=== PATIENT | male | born 1940 | race Caucasian/White ===

== ENCOUNTER 2018-03-14 15:51 | Emergency (ER) | payer MEDICARE, OTHER ==
--- NOTE | 2018-03-14 16:25 | ER Document Report ---
ED Medical Screen (RME) - General Chief Complaint: Breathing Difficulty Stated Complaint: SHORTNESS OF BREATH Time Seen by Provider: 03/14/18 16:18 Notes: 77-year-old male presents emergency department stating that he is feeling more short of breath than usual since last night. No change in his cough, no chest pain, no fevers. Patient also states he was concerned because he was starting to run out of oxygen. Patient does have a history of COPD. TRAVEL OUTSIDE OF THE [place] IN LAST 30 DAYS: No - Related Data Allergies/Adverse Reactions: No Known Allergies Allergy (Unverified 03/14/18 16:01) Past Medical History - General Information source: Patient - Social History Cigarette use (# per day): No Chew tobacco use (# tins/day): No Frequency of alcohol use: Rare Drug Abuse: None - Past Medical History Cardiac Medical History: Reports: Hx Hypertension Pulmonary Medical History: Reports: Hx COPD Renal/ Medical History: Denies: Hx Peritoneal Dialysis Past Surgical History: Reports: Hx Cardiac Catheterization - 4 stents, Hx Tonsillectomy Review of Systems - Review of Systems Cardiovascular: No symptoms reported Respiratory: See HPI Physical Exam - Vital signs Vitals: Temp Pulse Resp BP Pulse Ox 97.7 F 85 16 168/78 H 96 03/14/18 16:03 03/14/18 16:03 03/14/18 16:03 03/14/18 16:03 03/14/18 16:03 Interpretation: Hypertensive - Notes Notes: Lungs-clear to auscultation bilaterally, occasional dry cough, no wheezing, no respiratory distress, stable on 2 L of nasal cannula oxygen. Heart-regular rate and rhythm no murmurs gallops or rubs. Course - Vital Signs Vital signs: Temp Pulse Resp BP Pulse Ox 97.7 F 85 16 168/78 H 96 03/14/18 16:03 03/14/18 16:03 03/14/18 16:03 03/14/18 16:03 03/14/18 16:03
[2018-03-14 17:13] LABS: ABSOLUTE EOSINOPHILS # (AUTO) 0.3 10^3/uL (0.0-0.6); ABSOLUTE LYMPHOCYTES (AUTO) 1.2 10^3/uL (0.5-4.7); ABSOLUTE NEUT (AUTO) 5.2 10^3/uL (1.7-8.2); BASOPHILS % (AUTO) 0.5 % (0-2); HEMATOCRIT 39.1 % (37.9-51.0); HEMOGLOBIN 12.9 g/dL (13.5-17.0); LYMPHOCYTES % (AUTO) 15.3 % (13-45); MEAN CORPUSCULAR VOLUME 91 fl (80-97); MONOCYTES % (AUTO) 12.7 % (3-13); PLATELET COUNT 227 10^3/uL (150-450); RED BLOOD COUNT 4.31 10^6/uL (4.35-5.55); RED CELL DISTRIBUTION WIDTH 15.3 % (11.5-14.0); SEGMENTED NEUTROPHILS % (AUTO) 67.5 % (42-78); TOTAL CELLS COUNTED % (AUTO) 100 %; WHITE BLOOD COUNT 7.7 10^3/uL (4.0-10.5)
[2018-03-14 17:15] LABS: VENOUS BLOOD BASE EXCESS 2.2 mmol/L; VENOUS BLOOD HCO3 24.6 mmol/L (20-32); VENOUS BLOOD PCO2 31.4 mmHg (35-63); VENOUS BLOOD PH 7.51 (7.30-7.42)
[2018-03-14 17:31] LABS: ALANINE AMINOTRANSFERASE 17 U/L (21-72); ALBUMIN 3.7 g/dL (3.5-5.0); ALKALINE PHOSPHATASE 96 U/L (38-126); ANION GAP 8 (5-19); ASPARTATE AMINO TRANSFERASE 19 U/L (17-59); BILIRUBIN,DIRECT 0.4 mg/dL (0.0-0.4); BILIRUBIN,TOTAL 0.6 mg/dL (0.2-1.3); BLOOD UREA NITROGEN 14 mg/dL (7-20); CALCIUM 9.3 mg/dL (8.4-10.2); CARBON DIOXIDE 25 mmol/L (22-30); CHLORIDE 107 mmol/L (98-107); CREATINE KINASE 56 U/L (55-170); GLUCOSE 100 mg/dL (75-110); POTASSIUM 4.1 mmol/L (3.6-5.0); SODIUM 139.5 mmol/L (137-145); TOTAL PROTEIN 7.4 g/dL (6.3-8.2)
[2018-03-14 17:40] LABS: CREATINE KINASE MB 1.17 ng/mL (<4.55)
[2018-03-14 17:41] LABS: TROPONIN I < 0.012 ng/mL
[2018-03-14] MEDS ORDERED: IPRATROPIUM/ALBUTEROL 0.5-2.5 MG/3 ML AMPUL NEB ONE (17:41)
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
[2018-03-14 18:08] VITALS: BP 165/70
--- NOTE | 2018-03-14 18:48 | RADIOLOGY REPORT (SQ) ---
EXAM DESCRIPTION: CHEST 2 VIEWS COMPLETED DATE/TIME: 03/14/2018 5:51 pm REASON FOR STUDY: SOB COMPARISON: None. TECHNIQUE: Frontal and lateral radiographic views of the chest acquired. NUMBER OF VIEWS: Two view. LIMITATIONS: None. FINDINGS: LUNGS AND PLEURA: No pneumothorax. No consolidation or pleural effusion. Emphysema and ch ronic interstitial changes -basilar scarring. MEDIASTINUM AND HILAR STRUCTURES: Age-appropriate contour. HEART AND VASCULAR STRUCTURES: Mild cardiac enlargement. BONES: No acute findings. HARDWARE: None in the chest. OTHER: No other significant finding. IMPRESSION: No consolidation or pleural effusion. Emphysema and chronic interstitial changes -basil ar scarring. TECHNICAL DOCUMENTATION: JOB ID: [id number] [id number] [employer]- All Rights Reserved Reading location - IP/workstation name: [email or web address]
--- NOTE | 2018-03-14 23:57 | EKG REPORT ---
SEVERITY:- ABNORMAL ECG - SINUS RHYTHM LEFT VENTRICULAR HYPERTROPHY : Confirmed by: Carol Ann Elizondo 14-Mar-2018 23:56:22
== END 2018-03-14 18:29 | disposition home or self-care (01) ==
LOC: ER 15:51
DX: J43.9 Emphysema, unspecified (principal); R06.02 Shortness of breath; Z65.5 Exposure to disaster, war and other hostilities; Z99.81 Dependence on supplemental oxygen; I10 Essential (primary) hypertension; Z95.5 Presence of coronary angioplasty implant and graft
CPT/HCPCS: 36415; 71046; 80053; 82550; 82553; 82803; 84484; 85025; 93005; 93010; 94640; 99285

== ENCOUNTER 2018-03-16 10:50 | Emergency (ER) | payer MEDICARE, OTHER ==
[2018-03-16 11:02] VITALS: BP 162/62
[2018-03-16] MEDS ORDERED: ASPIRIN 81 MG TABLET, CHEWABLE PO ONE (11:20)
--- NOTE | 2018-03-16 11:24 | ER Document Report ---
ED Medical Screen (RME) - General Chief Complaint: Shortness Of Breath Stated Complaint: DIFFICULTY BREATHING Time Seen by Provider: 03/16/18 11:18 Mode of Arrival: Wheelchair Information source: Patient Notes: Patient woke up this morning with sudden onset of shortness of breath. He said his oxygen saturation saturation was in the 80's. Patient also has a nonproductive wet cough. He is a former smoker. Denies chest pain, abdominal pain, nausea, vomiting, diarrhea, fever or chills. Patient normally use home oxygen about 4 L continuously. On exam he has diffuse wheezes bilaterally. I have greeted and performed a rapid initial assessment of this patient. A comprehensive ED assessment and evaluation of the patient, analysis of test results and completion of the medical decision making process will be conducted by additional ED providers. TRAVEL OUTSIDE OF THE [place] IN LAST 30 DAYS: No - Related Data Allergies/Adverse Reactions: No Known Allergies Allergy (Unverified 03/14/18 16:01) Past Medical History - Social History Chew tobacco use (# tins/day): No Frequency of alcohol use: None Drug Abuse: None - Past Medical History Cardiac Medical History: Reports: Hx Hypertension Pulmonary Medical History: Reports: Hx COPD Renal/ Medical History: Denies: Hx Peritoneal Dialysis Past Surgical History: Reports: Hx Cardiac Catheterization - 4 stents, Hx Tonsillectomy Physical Exam - Vital signs Vitals: Temp Pulse Resp BP Pulse Ox 98.0 F 74 22 H 162/62 H 94 03/16/18 10:56 03/16/18 10:56 03/16/18 10:56 03/16/18 10:56 03/16/18 10:56 Course - Vital Signs Vital signs: Temp Pulse Resp BP Pulse Ox 98.0 F 74 22 H 162/62 H 94 03/16/18 10:56 03/16/18 10:56 03/16/18 10:56 03/16/18 10:56 03/16/18 10:56
[2018-03-16] MEDS ORDERED: METHYLPREDNISOLONE INJ 125 MG/2 ML SDV IV ONE (11:25)
[2018-03-16] MEDS ORDERED: IPRATROPIUM/ALBUTEROL 0.5-2.5 MG/3 ML AMPUL NEB ONE (11:25)
--- NOTE | 2018-03-16 12:34 | RADIOLOGY REPORT (SQ) ---
EXAM DESCRIPTION: CHEST SINGLE VIEW COMPLETED DATE/TIME: 03/16/2018 12:15 pm REASON FOR STUDY: shortness of breath COMPARISON: 03/14/2018 EXAM PARAMETERS: NUMBER OF VIEWS: One view. TECHNIQUE: Single frontal radiographic view of the chest acquired. RADIATION DOSE: NA LIMITATIONS: None. FINDINGS: LUNGS AND PLEURA: Upper lobes are hyperinflated and hyperlucent from obstructive disease i n her mild pulmonary interstitial edema in the lower lobes Jayla lines present. No pneumothorax. No pleural effusions. MEDIASTINUM AND HILAR STRUCTURES: No masses. Contour normal. HEART AND VASCULAR STRUCTURES: Stable cardiomegaly BONES: No acute findings. HARDWARE: None in the chest. OTHER: No other significant finding. IMPRESSION: Mild fluid overload or congestive failure superimposed on obstructive disease TECHNICAL DOCUMENTATION: JOB ID: [id number] [employer]- All Rights Reserved Reading location - IP/workstation name: [email or web address]
[2018-03-16] MEDS ORDERED: GUAIFENESIN 600 MG TABLET.SA PO ONE (13:11)
[2018-03-16 13:30] LABS: APPEARANCE,URINE CLEAR; BILIRUBIN,URINE NEGATIVE (NEGATIVE); COLOR,URINE STRAW; GLUCOSE, URINE NEGATIVE (NEGATIVE); KETONES,URINE NEGATIVE (NEGATIVE); PROTEIN,URINE NEGATIVE (NEGATIVE)
[2018-03-16 13:31] LABS: LEUKOCYTE ESTERASE,URINE TRACE (NEGATIVE); NITRITE,URINE NEGATIVE (NEGATIVE); URINE SPECIFIC GRAVITY 1.013
[2018-03-16 13:54] LABS: ALANINE AMINOTRANSFERASE 14 U/L (21-72); ALKALINE PHOSPHATASE 106 U/L (38-126); ANION GAP 8 (5-19); ASPARTATE AMINO TRANSFERASE 19 U/L (17-59); BILIRUBIN,DIRECT 0.5 mg/dL (0.0-0.4); BILIRUBIN,TOTAL 0.9 mg/dL (0.2-1.3); BLOOD UREA NITROGEN 12 mg/dL (7-20); CALCIUM 9.4 mg/dL (8.4-10.2); CARBON DIOXIDE 28 mmol/L (22-30); CHLORIDE 100 mmol/L (98-107); CREATINE KINASE 56 U/L (55-170); GLUCOSE 92 mg/dL (75-110); POTASSIUM 4.9 mmol/L (3.6-5.0); SODIUM 136.3 mmol/L (137-145); TOTAL PROTEIN 7.7 g/dL (6.3-8.2)
[2018-03-16 13:58] LABS: ABSOLUTE BASOPHILS # (AUTO) 0.1 10^3/uL (0.0-0.2); ABSOLUTE EOSINOPHILS # (AUTO) 0.6 10^3/uL (0.0-0.6); ABSOLUTE LYMPHOCYTES (AUTO) 1.3 10^3/uL (0.5-4.7); ABSOLUTE MONOCYTES (AUTO) 1.3 10^3/uL (0.1-1.4); EOSINOPHILS % (AUTO) 4.8 % (0-6); HEMATOCRIT 41.2 % (37.9-51.0); HEMOGLOBIN 13.6 g/dL (13.5-17.0); LYMPHOCYTES % (AUTO) 10.8 % (13-45); MEAN CORPUSCULAR HEMOGLOBIN 29.7 pg (27.0-33.4); MEAN CORPUSCULAR HGB CONC 33.1 g/dL (32.0-36.0); MEAN CORPUSCULAR VOLUME 90 fl (80-97); MONOCYTES % (AUTO) 10.3 % (3-13); PLATELET COUNT 230 10^3/uL (150-450); RED BLOOD COUNT 4.58 10^6/uL (4.35-5.55); RED CELL DISTRIBUTION WIDTH 15.5 % (11.5-14.0); SEGMENTED NEUTROPHILS % (AUTO) 73.1 % (42-78); TOTAL CELLS COUNTED % (AUTO) 100 %; WHITE BLOOD COUNT 12.4 10^3/uL (4.0-10.5)
[2018-03-16 14:07] LABS: CREATINE KINASE MB 1.55 ng/mL (<4.55); NT PRO BNP 144 pg/mL (<450)
[2018-03-16 14:09] LABS: TROPONIN I < 0.012 ng/mL
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
[2018-03-16] MEDS ORDERED: LATANOPROST 0.005% OPH SOLN 2.5 ML OU ONE (15:24)
[2018-03-16] MEDS ORDERED: BUDESONIDE/FORMOTEROL 160-4.5 MCG 60 PUFF/6 GM MDI IH ONE (15:24)
[2018-03-16] MEDS ORDERED: TIOTROPIUM BROMIDE DPI 5 CAP/KIT (18 MCG/CAP) IH ONE (15:24)
[2018-03-16] MEDS ORDERED: ALBUTEROL SULFATE HFA (90 MCG/PUFF) 8 GM MDI (1 MDI/ER DISP) IH ONE ×2 (15:24→17:30)
--- NOTE | 2018-03-16 15:53 | RADIOLOGY REPORT (SQ) ---
EXAM DESCRIPTION: CTA CHEST COMPLETED DATE/TIME: 03/16/2018 3:37 pm REASON FOR STUDY: short of breath, concern for PE COMPARISON: Chest radiograph TECHNIQUE: CT scan of the chest performed using helical scanning technique with dynamic intravenous contrast injection. Images reviewed with lung, soft tissue and bone windows. Reconstructed coronal and sagittal MPR images reviewed. Additional 3 dimensional post-processing performed to develop Maximal Intensity Projection images (IA P). All images stored on PACS. All CT scanners at this facility use dose modulation, iterative reconstruction, and/or weight based d osing when appropriate to reduce radiation dose to as low as reasonably achievable (ALARA). [facility]: Dose Right [facility]: CareDose [facility]: Dose Right [facility]: Teradose 4D [facility]: Activity Rocket CONTRAST TYPE AND DOSE: contrast/concentration: Isovue 350.00 mg/ml; Total Contrast Delivered: 80.0 ml; Total Saline Delivered: 90.0 ml Contrast bolus optimized for the pulmonary arteries. Not diagnostic for the aorta. RENAL FUNCTION: GFR > 60. RADIATION DOSE: CT Rad equipment meets quality standard of care and radiation dose reduction techniq ues were employed. CTDIvol: 19.8 - 22.9 mGy. DLP: 943 mGy-cm. . LIMITATIONS: None. FINDINGS: LUNGS AND PLEURA: Extensive emphysematous changes. No opacities. AORTA AND GREAT VESSELS: No aneurysm. Contrast bolus not optimized for the aorta. HEART: No pericardial effusion. No significant coronary artery calcifications. PULMONARY ARTERIES: No emboli visualized in the main pulmonary arteries or the segmental branches. HILAR AND MEDIASTINAL STRUCTURES: No identified masses or abnormal nodes. HARDWARE: None in the chest. UPPER ABDOMEN: Multiple renal cysts. THYROID AND OTHER SOFT TISSUES: No masses. No adenopathy. BONES: No acute or significant finding. 3D MIPS: Confirm above findings. OTHER: No other significant finding. IMPRESSION: No pulmonary emboli. Extensive emphysematous changes. COMMENT: Quality ID # [id number]: Final reports with documentation of one or more dose reduction techniques (e.g., Automated exposure control, adjustment of the mA and/or kV according to patient size, use of iterative reconstruction technique) TECHNICAL DOCUMENTATION: JOB ID: [id number] [employer]- All Rights Reserved Reading location - IP/workstation name: [email or web address]
--- NOTE | 2018-03-17 05:20 | EKG REPORT ---
SEVERITY:- ABNORMAL ECG - SINUS RHYTHM NONSPECIFIC INTRAVENTRICULAR CONDUCTION DELAY LEFT VENTRICULAR HYPERTROPHY : Confirmed by: Carol Ann Elizondo 17-Mar-2018 05:19:36
[2018-03-17] MEDS ORDERED: TIMOLOL MALEATE 0.25% OPH SOLN 5 ML OU SCH (10:00)
== END 2018-03-16 18:23 | disposition home or self-care (01) ==
LOC: ER 10:50
DX: R06.02 Shortness of breath (principal); J44.9 Chronic obstructive pulmonary disease, unspecified; Z99.81 Dependence on supplemental oxygen; X37.0XXA Hurricane, initial encounter; Z65.5 Exposure to disaster, war and other hostilities
CPT/HCPCS: 93005; 94640; 99285; 96374; 36415; 82553; 82550; 85025; 80053; 81001; 84484; 85379; 83880; 71045; 71275; 93010; A9270 ×3; J3490 ×4; J2930; J7620

== ENCOUNTER 2019-07-24 18:28 | Inpatient (IN) | payer OTHER, MEDICARE ==
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
--- NOTE | 2019-07-24 19:07 | RADIOLOGY REPORT (SQ) ---
EXAM DESCRIPTION: CHEST SINGLE VIEW COMPLETED DATE/TIME: 07/24/2019 6:59 pm REASON FOR STUDY: dyspnea COMPARISON: 03/14/2018 EXAM PARAMETERS: NUMBER OF VIEWS: One view. TECHNIQUE: Single frontal radiographic view of the chest acquired. RADIATION DOSE: NA LIMITATIONS: None. FINDINGS: LUNGS AND PLEURA: Chronic interstitial changes in the lung bases. No infiltrate, effusion , or mass. MEDIASTINUM AND HILAR STRUCTURES: No masses. Contour normal. HEART AND VASCULAR STRUCTURES: Heart normal in size. Normal vasculature. BONES: No acute findings. HARDWARE: None in the chest. OTHER: No other significant finding. IMPRESSION: Chronic lung changes with no acute cardiopulmonary findings. TECHNICAL DOCUMENTATION: JOB ID: [id number] [employer]- All Rights Reserved Reading location - IP/workstation name: [email or web address]
[2019-07-24] MEDS ORDERED: VANCOMYCIN HCL INJ 1000 MG VIAL IV ONE (19:47)
[2019-07-24] MEDS ORDERED: PIPERACILLIN/TAZOBACTAM 3.375 GM VIAL IV ONE (19:47)
[2019-07-24 20:06] LABS: ABSOLUTE BASOPHILS # (AUTO) 0.1 10^3/uL (0.0-0.2); ABSOLUTE EOSINOPHILS # (AUTO) 0.2 10^3/uL (0.0-0.6); ABSOLUTE LYMPHOCYTES (AUTO) 0.6 10^3/uL (0.5-4.7); ABSOLUTE MONOCYTES (AUTO) 0.5 10^3/uL (0.1-1.4); ABSOLUTE NEUT (AUTO) 8.3 10^3/uL (1.7-8.2); BASOPHILS % (AUTO) 0.7 % (0-2); EOSINOPHILS % (AUTO) 2.4 % (0-6); HEMATOCRIT 31.4 % (37.9-51.0); HEMOGLOBIN 10.4 g/dL (13.5-17.0); LYMPHOCYTES % (AUTO) 6.6 % (13-45); MEAN CORPUSCULAR HEMOGLOBIN 29.5 pg (27.0-33.4); MEAN CORPUSCULAR VOLUME 90 fl (80-97); MONOCYTES % (AUTO) 4.8 % (3-13); PLATELET COUNT 251 10^3/uL (150-450); RED BLOOD COUNT 3.51 10^6/uL (4.35-5.55); RED CELL DISTRIBUTION WIDTH 16.8 % (11.5-14.0); SEGMENTED NEUTROPHILS % (AUTO) 85.5 % (42-78); TOTAL CELLS COUNTED % (AUTO) 100 %; WHITE BLOOD COUNT 9.6 10^3/uL (4.0-10.5)
[2019-07-24 20:13] LABS: VENOUS BLOOD BASE EXCESS 1.9 mmol/L; VENOUS BLOOD HCO3 28.4 mmol/L (20-32); VENOUS BLOOD PCO2 51.3 mmHg (35-63); VENOUS BLOOD PH 7.36 (7.30-7.42)
--- NOTE | 2019-07-24 20:19 | EKG REPORT ---
SEVERITY:- ABNORMAL ECG - SINUS RHYTHM FIRST DEGREE AV BLOCK BORDERLINE T ABNORMALITIES, ANT-LAT LEADS : Confirmed by: Stevan Nicolas MD 24-Jul-2019 20:19:04
[2019-07-24 20:24] LABS: ALBUMIN 3.8 g/dL (3.5-5.0); ALKALINE PHOSPHATASE 105 U/L (38-126); ANION GAP 10 (5-19); ASPARTATE AMINO TRANSFERASE 23 U/L (17-59); BILIRUBIN,TOTAL 0.5 mg/dL (0.2-1.3); BLOOD UREA NITROGEN 23 mg/dL (7-20); CALCIUM 9.2 mg/dL (8.4-10.2); CARBON DIOXIDE 28 mmol/L (22-30); CHLORIDE 94 mmol/L (98-107); GLUCOSE 124 mg/dL (75-110); POTASSIUM 4.9 mmol/L (3.6-5.0); TOTAL PROTEIN 7.1 g/dL (6.3-8.2)
[2019-07-24] MEDS ORDERED: MAG HYDROX/AL HYDROX/SIMETH SUSP 30 ML UDCUP PO PRN (22:21)
[2019-07-24] MEDS ORDERED: PROMETHAZINE HCL INJ 25 MG/1 ML VIAL IV PRN (22:21)
[2019-07-24] MEDS ORDERED: MAGNESIUM HYDROXIDE SUSP 30 ML UDCUP PO PRN (22:21)
[2019-07-24] MEDS ORDERED: LEVALBUTEROL HCL NEB 0.63 MG/3 ML AMPUL NEB PRN (22:21)
[2019-07-24] MEDS ORDERED: NICOTINE 21 MG/24 HR PATCH.TD24 TD PRN (22:25)
[2019-07-24] MEDS ORDERED: MORPHINE SULFATE 10 MG/ML INJ IV PRN ×3 (22:25)
[2019-07-24 22:50] LABS: APPEARANCE,URINE CLEAR; BILIRUBIN,URINE NEGATIVE (NEGATIVE); COLOR,URINE YELLOW; GLUCOSE, URINE NEGATIVE (NEGATIVE); KETONES,URINE TRACE mg/dL (NEGATIVE); LEUKOCYTE ESTERASE,URINE NEGATIVE (NEGATIVE); NITRITE,URINE NEGATIVE (NEGATIVE); PROTEIN,URINE NEGATIVE (NEGATIVE); URINE SPECIFIC GRAVITY 1.013; UROBILINOGEN,URINE NEGATIVE mg/dL (<2.0)
[2019-07-24] MEDS: FAMOTIDINE 20 MG TABLET PO SCH (23:08)
[2019-07-25] MEDS: IPRATROPIUM BROMIDE 0.02% NEB 0.5 MG/2.5 ML AMPUL NEB SCH ×2 (00:42→08:08)
[2019-07-25] MEDS: LEVALBUTEROL HCL NEB 1.25 MG/3 ML AMPUL NEB SCH ×2 (00:42→08:08)
--- NOTE | 2019-07-25 00:58 | PDOC H&P ---
History of Present Illness Admission Date/PCP: 07/24/19 21:51 [place] [facility] Patient complains of: Dyspnea History of Present Illness: ENRIQUE JONES is a 78 year old male who presented to the emergency room with acute dyspnea. The patient admits suddenly developing severe dyspnea worsened by any exertion and accompanied by wheezing and air hunger this afternoon just prior to coming to the emergency room. He also reports the associated symptoms of weakness/hoarseness of his voice and vague generalized chest discomfort with breathing. He denies other associated or accompanying signs and symptoms. EMS was called to the scene and administered 2 g of magnesium sulfate and 125 mg of Solu-Medrol IV as well as providing the patient with 2 DuoNeb treatments during transportation. Patient had improved substantially by the time he arrived in the ER although he still required BiPAP therapy to maintain an adequate oxygen saturation. He admits a long history of COPD and has had numerous prior similar episodes. He has not identified any additional aggravating or ameliorating factors for his dyspnea. In the emergency room he is evaluation revealed no evidence of acute process on his chest x-ray though changes of COPD were noted. The remainder of his ER evaluation was unremarkable. Patient was subsequently admitted to the hospital for further evaluation and treatment. Past Medical History Cardiac Medical History: Reports: Coronary Artery Disease, Hyperlipidema, Hypertension, Peripheral Vascular Disease Denies: Atrial Fibrillation, Congestive Heart Failure, Myocardial Infarction Pulmonary Medical History: Reports: Chronic Obstructive Pulmonary Disease (COPD), Respiratory Failure - Chronic hypoxic respiratory failure Denies: Asthma EENT Medical History: Reports: Eyes - Glaucoma Denies: Cataracts, Ears - Hearing aids Neurological Medical History: Reports: Ischemic CVA, Other - TIA Denies: Hemorrhagic CVA, Seizures Endocrine Medical History: Reports: Obesity Denies: Diabetes Mellitus Type 1, Diabetes Mellitus Type 2, Hyperthyroidism, Hypothyroidism Renal/ Medical History: Denies: Chronic Kidney Disease, Nephrolithiasis Malignancy Medical History: Reports: None GI Medical History: Denies: Cirrhosis, Crohn's Disease, Gastroesophageal Reflux Disease, Hepatitis, Peptic Ulcer Disease, Ulcerative Colitis Musculoskeltal Medical History: Reports: Gout Denies: Arthritis Skin Medical History: Denies: Eczema, Psoriasis Psychiatric Medical History: Reports: Alcohol Dependency, Tobacco Dependency Denies: Substance Abuse Traumatic Medical History: Reports: None Hematology: Denies: Anemia, Bleeding Tendencies Infectious Medical History: Reports: None Past Surgical History Past Surgical History: Reports: Cardiac Catheterization, Coronary Stent - X4, Herniorrhaphy - Bilateral inguinal herniorrhaphies, Tonsillectomy, Other - Facial tumor excision Social History Information Source: Patient Lives with: Spouse/Significant other - Lilia Maldonado Smoking Status: Former Smoker Electronic Cigarette use?: No Frequency of Alcohol Use: None - Quit drinking several years ago, "I was a drunk" Hx Recreational Drug Use: No Drugs: None Hx Prescription Drug Abuse: No - Advance Directive Resuscitation Status: Full Code Surrogate healthcare decision maker:: Lilia Maldonado Family History Family History: CAD, Hypertension. denies: DM, Malignancy Parental Family History Reviewed: Yes Children Family History Reviewed: No Sibling(s) Family History Reviewed.: Yes Medication/Allergy Home Medications: Acetaminophen [Tylenol] 650 mg PO Q6HP PRN 07/25/19 Albuterol Sulfate [Proair Digihaler] 2 puff IH Q6HP PRN 07/25/19 Albuterol Sulfate [Ventolin 0.083% Neb 2.5 mg/3 ml Ampul] 1 vial NEB Q4HP PRN 07/25/19 Allopurinol [Zyloprim 300 mg Tablet] 300 mg PO BID 07/25/19 Amlodipine Besylate [Norvasc 10 mg Tablet] 10 mg PO DAILY 07/25/19 Aspirin [Ecotrin 81 mg EC Tablet] 81 mg PO DAILY 07/25/19 Brimonidine Tartrate [Alphagan 0.2% Oph Soln 5 ml] 1 drop OU BIDP PRN 07/25/19 Budesonide/Formoterol Fumarate [Symbicort Hfa 160-4.5 Mcg Inhaler 6 gm] 2 puff IH Q12 07/25/19 Calcium Carbonate [Calcium] 500 mg PO DAILYP PRN 07/25/19 Clopidogrel Bisulfate [Plavix 75 mg Tablet] 75 mg PO DAILY 07/25/19 Furosemide [Lasix 40 mg Tablet] 40 mg PO DAILY 07/25/19 Latanoprost/Pf [Latanoprost 0.005% Eye Drop] 1 drop OU QHS 07/25/19 Levothyroxine Sodium [Synthroid 50 Mcg Tablet] 50 mcg PO DAILY 07/25/19 Losartan Potassium [Cozaar] 100 mg PO DAILY 07/25/19 Metoprolol Tartrate [Lopressor] 50 mg PO BID 07/25/19 Pantoprazole Sodium [Protonix [address] Tablet] 40 mg PO BID 07/25/19 Simvastatin 40 mg PO QHS 07/25/19 Sodium Chloride [Saline Nasal [place]] 1 spray NS DAILYP PRN 07/25/19 Timolol [Betimol] 1 drop OU BID 07/25/19 Tiotropium [place] [Spiriva Handihaler 5 Cap/Kit (18 Mcg/Cap)] 18 mcg IH DAILY 07/25/19 Allergies/Adverse Reactions: No Known Allergies Allergy (Unverified 03/14/18 16:01) Review of Systems Constitutional: ABSENT: chills, fever(s) Eyes: ABSENT: visual disturbances, other - Eye pain Ears: ABSENT: hearing changes, other - Ear pain Nose, Mouth, and Throat: ABSENT: headache(s), mouth pain, sore throat Cardiovascular: PRESENT: as per HPI, chest pain, dyspnea on exertion. ABSENT: edema, orthropnea, palpitations Respiratory: PRESENT: as per HPI, dyspnea. ABSENT: cough Gastrointestinal: ABSENT: abdominal pain, constipation, diarrhea, nausea, vomiting Genitourinary: ABSENT: dysuria, hematuria Musculoskeletal: ABSENT: back pain, joint swelling, muscle weakness Integumentary: ABSENT: pruritus, rash Neurological: ABSENT: confusion, convulsions, focal weakness, memory loss, syn cope Psychiatric: ABSENT: anxiety, depression Endocrine: ABSENT: cold intolerance, heat intolerance, polydipsia, polyphagia, polyuria Hematologic/Lymphatic: ABSENT: easy bleeding, easy bruising Allergic/Immunologic: ABSENT: seasonal rhinorrhea Physical Exam Vital Signs: Temp Pulse Resp BP Pulse Ox 23 H 123/55 L 96 07/24/19 21:02 07/24/19 21:02 07/24/19 21:02 Intake & Output 07/22/19 07/23/19 07/24/19 23:59 23:59 23:59 Weight 99.6 kg General appearance: PRESENT: no acute distress, cooperative, other - On BiPAP at the time of exam Head exam: PRESENT: atraumatic, normocephalic Eye exam: PRESENT: conjunctiva pink. ABSENT: conjunctival injection, scleral icterus Ear exam: PRESENT: normal external ear exam. ABSENT: bleeding, drainage Mouth exam: PRESENT: dry mucosa, neck supple Neck exam: ABSENT: thyromegaly, tracheal deviation Respiratory exam: PRESENT: decreased breath sounds - Moderately decreased breath sounds throughout all [place], prolonged expiratory phas - Moderately prolonged expiratory phase in all [place], symmetrical, wheezes - Moderate expiratory wheezing in all [place], other - On BiPAP at time of exam. ABSENT: rales, rhonchi Cardiovascular exam: PRESENT: RRR. ABSENT: clicks, gallop, rubs Pulses: PRESENT: normal radial pulses, normal dorsalis pedis pul Vascular exam: PRESENT: normal capillary refill. ABSENT: pallor GI/Abdominal exam: PRESENT: normal bowel sounds, soft Rectal exam: PRESENT: deferred Extremities exam: ABSENT: joint swelling, pedal edema Musculoskeletal exam: ABSENT: deformity, dislocation Neurological exam: PRESENT: alert, oriented to person, oriented to place, o riented to time, oriented to situation, CN II-XII grossly intact. ABSENT: motor sensory deficit Psychiatric exam: PRESENT: appropriate affect, normal mood Skin exam: PRESENT: dry, intact, warm. ABSENT: jaundice, rash, urticaria Results Laboratory Results: 07/24/19 19:40 07/24/19 19:40 07/24/19 07/24/19 07/24/19 19:40 19:40 19:40 WBC 9.6 RBC 3.51 L Hgb 10.4 L Hct 31.4 L MCV 90 MCH 29.5 MCHC 33.0 RDW 16.8 H Plt Count 251 Seg Neutrophils % 85.5 H VBG pH 7.36 VBG pCO2 51.3 VBG HCO3 28.4 VBG Base Excess 1.9 Sodium 132.4 L Potassium 4.9 Chloride 94 L Carbon Dioxide 28 Anion Gap 10 BUN 23 H Creatinine 1.15 Est GFR ( Amer) > 60 Glucose 124 H Calcium 9.2 Total Bilirubin 0.5 AST 23 Alkaline Phosphatase 105 Total Protein 7.1 Albumin 3.8 Impressions: Chest X-Ray 07/24/19 18:35 IMPRESSION: Chronic lung changes with no acute cardiopulmonary findings. Assessment and Plan - Diagnosis (1) Acute exacerbation of chronic obstructive pulmonary disease Is this a current diagnosis for this admission?: Yes (2) Acute and chronic respiratory failure with hypoxia Is this a current diagnosis for this admission?: Yes (3) Coronary artery disease Qualifiers: Coronary Disease-Associated Artery/Lesion type: [place] artery [place] vs. transplanted heart: [place] heart Associated angina: without angina Qualified Code(s): I25.10 - Atherosclerotic heart disease of [place] coronary artery without angina pectoris Is this a current diagnosis for this admission?: Yes (4) Hypertension Qualifiers: Hypertension type: essential hypertension Qualified Code(s): I10 - Essential (primary) hypertension Is this a current diagnosis for this admission?: Yes (5) Hyperlipidemia Qualifiers: Hyperlipidemia type: unspecified Qualified Code(s): E78.5 - Hyperlipidemia, unspecified Is this a current diagnosis for this admission?: Yes (6) Glaucoma Qualifiers: Glaucoma type: unspecified Laterality: bilateral Qualified Code(s): H40.9 - Unspecified glaucoma Is this a current diagnosis for this admission?: Yes - Plan Summary Summary: Patient is admitted to the medical floor where he will receive routine supportive and symptomatic cares. He will be treated with an aggressive pulmonary toilet utilizing nebulized Xopenex, Pulmicort and Atrovent. He will receive IV Solu-Medrol over a short course. He will receive supplemental oxygen utilizing BiPAP in order to maintain an adequate oxygen saturation until such time as he is able to tolerate return to continuous nasal cannula oxygen supplementation. He will receive morphine sulfate 2 to 4 mg IV every 2 hours on an as-needed basis for pain. Serial CBCs, metabolic profiles and magnesium levels be obtained as appropriate. A thyroid screen, lipid profile and serial cardiac enzymes will be obtained. Patient will be continued on his home medications for his chronic medical problems as appropriate and per formulary availability. - Time Time Spent with patient: 15-24 minutes Smoking Cessation Education: 3 to 10 minutes Medications reviewed and adjusted accordingly: Yes Anticipated discharge: Home - Inpatient Certification Based on my medical assessment, after consideration of the patient's comorbidities, presenting symptoms, or acuity I expect that the services needed warrant INPATIENT care.: Yes I certify that my determination is in accordance with my understanding of Medicare's requirements for reasonable and necessary INPATIENT services [42 CFR 412.3e].: Yes Medical Necessity: Need Close Monitoring Due to Risk of Patient Decompensation, Need for Nebulizer Therapy and Monitoring of Response, Other - Need for aggressive use of noninvasive airway pressure support devices
[2019-07-25 01:15] LABS: CREATINE KINASE MB 0.66 ng/mL (<4.55)
[2019-07-25] MEDS: METHYLPREDNISOLONE INJ 40 MG/1 ML SDV IV SCH ×3 (01:16→11:04)
[2019-07-25 01:17] LABS: TROPONIN I < 0.012 ng/mL
[2019-07-25] MEDS ORDERED: SODIUM CHLORIDE NASAL SPRAY 44 ML NASL PRN (02:42)
[2019-07-25] MEDS ORDERED: BRIMONIDINE TARTRATE 0.2% OPH SOLN 5 ML OU PRN (02:42)
[2019-07-25] MEDS ORDERED: ALBUTEROL SULFATE HFA (90 MCG/PUFF) 200 PUFF/8.5 GM MDI IH PRN (03:00)
[2019-07-25] MEDS ORDERED: CALCIUM CARBONATE 500 MG TAB.CHEW PO PRN (03:30)
[2019-07-25] MEDS: LATANOPROST 0.005% OPH SOLN 2.5 ML OU SCH ×2 (04:43→22:22)
[2019-07-25] MEDS: TIMOLOL MALEATE 0.5% OPH SOLN 5 ML OU SCH ×3 (04:43→17:31)
[2019-07-25] MEDS: LEVOTHYROXINE SODIUM 0.05 MG TABLET PO SCH (06:27)
[2019-07-25] MEDS: PANTOPRAZOLE SODIUM 40 MG TABLET.DR PO SCH ×2 (06:27→17:31)
[2019-07-25] MEDS: HEPARIN SOD (PORCINE) 5,000 UNIT/ML 1 ML VIAL SUBCUT SCH ×3 (06:27→22:20)
[2019-07-25 07:12] LABS: HEMATOCRIT 28.8 % (37.9-51.0); HEMOGLOBIN 9.4 g/dL (13.5-17.0); MEAN CORPUSCULAR HEMOGLOBIN 28.9 pg (27.0-33.4); MEAN CORPUSCULAR HGB CONC 32.7 g/dL (32.0-36.0); MEAN CORPUSCULAR VOLUME 89 fl (80-97); PLATELET COUNT 188 10^3/uL (150-450); RED BLOOD COUNT 3.25 10^6/uL (4.35-5.55); RED CELL DISTRIBUTION WIDTH 16.4 % (11.5-14.0); WHITE BLOOD COUNT 9.4 10^3/uL (4.0-10.5)
[2019-07-25 07:31] LABS: ANION GAP 13 (5-19); BLOOD UREA NITROGEN 19 mg/dL (7-20); CALCIUM 9.4 mg/dL (8.4-10.2); CARBON DIOXIDE 26 mmol/L (22-30); CHLORIDE 95 mmol/L (98-107); CHOLESTEROL 148.12 mg/dL (0-200); CREATINE KINASE 34 U/L (55-170); GLUCOSE 163 mg/dL (75-110); POTASSIUM 4.6 mmol/L (3.6-5.0); TRIGLYCERIDES 77 mg/dL (<150)
[2019-07-25 07:44] LABS: DIRECT LDL 79 mg/dL (<100)
[2019-07-25 07:45] LABS: CREATINE KINASE MB 0.71 ng/mL (<4.55)
[2019-07-25 07:56] LABS: TROPONIN I < 0.012 ng/mL
[2019-07-25] MEDS: BUDESONIDE NEB 0.5 MG/2 ML AMPUL NEB SCH ×2 (08:08→20:14)
[2019-07-25] MEDS: ALLOPURINOL 300 MG TABLET PO SCH ×2 (09:37→17:31)
[2019-07-25] MEDS: FAMOTIDINE 20 MG TABLET PO SCH ×2 (09:37→22:20)
[2019-07-25] MEDS: AMLODIPINE BESYLATE 10 MG TABLET PO SCH (09:37)
[2019-07-25] MEDS: CLOPIDOGREL BISULFATE 75 MG TABLET PO SCH (09:37)
[2019-07-25] MEDS: LOSARTAN POTASSIUM 25 MG TABLET PO SCH (09:37)
[2019-07-25] MEDS: ASPIRIN 81 MG TABLET, ENT COATED PO SCH (09:37)
[2019-07-25] MEDS: FUROSEMIDE 40 MG TABLET PO SCH (09:38)
[2019-07-25] MEDS: DOCUSATE SODIUM 100 MG CAPSULE PO SCH ×2 (09:38→17:31)
[2019-07-25] MEDS: METOPROLOL TARTRATE 50 MG TABLET PO SCH ×2 (09:38→17:31)
[2019-07-25] MEDS: FLUTICASONE/VILANTEROL 200-25 MCG/DOSE IH SCH (09:40)
[2019-07-25] MEDS: UMECLIDINIUM BROMIDE 62.5 MCG/DOSE IH SCH (09:41)
--- NOTE | 2019-07-25 10:29 | PDOC PROGRESS REPORT ---
Subjective Progress Note for:: 07/25/19 Reason For Visit: ACUTE EXACERBATION OF COPD,ACUTE ON CHRONIC RESPIR 07/25/2019 OPD exacerbation, but natremia, GERD, coronary disease, diabetes, hypertension, generalized weakness Physical Exam Vital Signs: Temp Pulse Resp BP Pulse Ox 97.6 F 89 20 139/40 H 95 07/25/19 09:04 07/25/19 09:04 07/25/19 09:04 07/25/19 09:04 07/25/19 09:04 Intake & Output 07/24/19 07/25/19 07/26/19 06:59 06:59 06:59 Intake Total 590 Output Total 750 Balance -160 Weight 101.8 kg General appearance: PRESENT: no acute distress, other - Sleeping comfortably how ever easily aroused Respiratory exam: PRESENT: clear to auscultation [place]. ABSENT: rales, rhonchi, wheezes Cardiovascular exam: PRESENT: RRR. ABSENT: diastolic murmur, rubs, systolic murmur Neurological exam: PRESENT: alert, awake, oriented to person, oriented to place, oriented to time, oriented to situation, CN II-XII grossly intact. ABSENT: motor sensory deficit Psychiatric exam: PRESENT: depressed, flat affect Results Laboratory Results: 07/25/19 06:16 07/25/19 06:16 07/24/19 07/24/19 07/24/19 19:40 19:40 19:40 WBC 9.6 RBC 3.51 L Hgb 10.4 L Hct 31.4 L MCV 90 MCH 29.5 MCHC 33.0 RDW 16.8 H Plt Count 251 Seg Neutrophils % 85.5 H VBG pH 7.36 VBG pCO2 51.3 VBG HCO3 28.4 VBG Base Excess 1.9 Sodium 132.4 L Potassium 4.9 Chloride 94 L Carbon Dioxide 28 Anion Gap 10 BUN 23 H Creatinine 1.15 Est GFR ( Amer) > 60 Glucose 124 H Calcium 9.2 Magnesium Total Bilirubin 0.5 AST 23 Alkaline Phosphatase 105 Total Protein 7.1 Albumin 3.8 Triglycerides Cholesterol LDL Cholesterol Direct VLDL Cholesterol HDL Cholesterol TSH Urine Color Urine Appearance Urine pH Ur Specific [place] Urine Protein Urine Glucose (UA) Urine Ketones Urine Blood Urine Nitrite Ur Leukocyte Esterase Urine WBC (Auto) Urine RBC (Auto) 07/24/19 07/25/19 07/25/19 22:26 06:16 06:16 WBC 9.4 RBC 3.25 L Hgb 9.4 L Hct 28.8 L MCV 89 MCH 28.9 MCHC 32.7 RDW 16.4 H Plt Count 188 Seg Neutrophils % VBG pH VBG pCO2 VBG HCO3 VBG Base Excess Sodium 134.3 L Potassium 4.6 Chloride 95 L Carbon Dioxide 26 Anion Gap 13 BUN 19 Creatinine 0.79 Est GFR ( Amer) > 60 Glucose 163 H Calcium 9.4 Magnesium 2.7 H Total Bilirubin AST Alkaline Phosphatase Total Protein Albumin Triglycerides 77 Cholesterol 148.12 LDL Cholesterol Direct 79 VLDL Cholesterol 15.0 HDL Cholesterol 53 TSH Urine Color YELLOW Urine Appearance CLEAR Urine pH 5.0 Ur Specific [place] 1.013 Urine Protein NEGATIVE Urine Glucose (UA) NEGATIVE Urine Ketones TRACE H Urine Blood NEGATIVE Urine Nitrite NEGATIVE Ur Leukocyte Esterase NEGATIVE Urine WBC (Auto) 0 Urine RBC (Auto) 0 07/25/19 06:16 WBC RBC Hgb Hct MCV MCH MCHC RDW Plt Count Seg Neutrophils % VBG pH VBG pCO2 VBG HCO3 VBG Base Excess Sodium Potassium Chloride Carbon Dioxide Anion Gap BUN Creatinine Est GFR ( Amer) Glucose Calcium Magnesium Total Bilirubin AST Alkaline Phosphatase Total Protein Albumin Triglycerides Cholesterol LDL Cholesterol Direct VLDL Cholesterol HDL Cholesterol TSH 0.15 L Urine Color Urine Appearance Urine pH Ur Specific [place] Urine Protein Urine Glucose (UA) Urine Ketones Urine Blood Urine Nitrite Ur Leukocyte Esterase Urine WBC (Auto) Urine RBC (Auto) 07/24/19 07/24/19 07/25/19 19:40 19:40 00:30 Creatine Kinase 34 L CK-MB (CK-2) Cancelled 0.66 Troponin I Cancelled < 0.012 07/25/19 07/25/19 06:16 06:16 Creatine Kinase 34 L CK-MB (CK-2) 0.71 Troponin I < 0.012 Impressions: Chest X-Ray 07/24/19 18:35 IMPRESSION: Chronic lung changes with no acute cardiopulmonary findings. Assessment and Plan - Diagnosis (1) Dementia Is this a current diagnosis for this admission?: Yes (2) Diabetes Is this a current diagnosis for this admission?: Yes (3) Generalized weakness Is this a current diagnosis for this admission?: Yes (4) Acute exacerbation of chronic obstructive pulmonary disease Is this a current diagnosis for this admission?: Yes (5) Coronary artery disease Qualifiers: Coronary Disease-Associated Artery/Lesion type: [place] artery [place] vs. transplanted heart: [place] heart Associated angina: without angina Qualified Code(s): I25.10 - Atherosclerotic heart disease of [place] coronary artery without angina pectoris Is this a current diagnosis for this admission?: Yes (6) Hypertension Qualifiers: Hypertension type: essential hypertension Qualified Code(s): I10 - Essential (primary) hypertension Is this a current diagnosis for this admission?: Yes - Plan Summary Summary: Patient is admitted to the medical floor where he will receive routine supporti ve and symptomatic cares. He will be treated with an aggressive pulmonary toilet utilizing nebulized Xopenex, Pulmicort and Atrovent. He will receive IV Solu-Medrol over a short course. He will receive supplemental oxygen utilizing BiPAP in order to maintain an adequate oxygen saturation until such time as he is able to tolerate return to continuous nasal cannula oxygen supplementation. He will receive morphine sulfate 2 to 4 mg IV every 2 hours on an as-needed basis for pain. Serial CBCs, metabolic profiles and magnesium levels be obtained as appropriate. A thyroid screen, lipid profile and serial cardiac enzymes will be obtained. Patient will be continued on his home medications for his chronic medical problems as appropriate and per formulary availability. 07/25/2019 Temperature 97.1 pulse between 70 and 100, blood pressure 135/60, O2 sat 95 to 99% on 2 L nasal cannula White count is normal, dig level is low 0.51, blood cultures negative x72 hours. Potassium 4.1 ,sodium stable ,125 renal functions are normal Will order Depakote level Change his gabapentin to 300 mg in the morning and 600 mg at night Placement issues are pending [facility] by the [facility]. Patient has agreed to go to half-way facility rehab. Appears to be [facility] where we are hoping he will be placed. Probably be mid next week before this is accomplished. In the meantime we will resume home meds, continue pulmonary toiletry, IV Solu-Medrol 40 mg every 12 hours and Lasix 20 mg p.o. twice daily No clinical or radiographic evidence for IV antibiotics - Time Time Spent with patient: 25-34 minutes
[2019-07-25] MEDS: GABAPENTIN 300 MG CAPSULE PO SCH ×2 (11:04→22:20)
[2019-07-25] MEDS ORDERED: ALBUTEROL SULFATE 0.083% NEB 2.5 MG/3 ML AMPUL NEB PRN ×2 (13:32→13:41)
[2019-07-25] MEDS ORDERED: ACETAMINOPHEN 325 MG TABLET PO PRN (13:32)
[2019-07-25] MEDS ORDERED: MORPHINE SULFATE 10 MG/ML INJ IV PRN (13:41)
[2019-07-25 13:46] LABS: CREATINE KINASE 31 U/L (55-170)
[2019-07-25 13:59] LABS: CREATINE KINASE MB 1.08 ng/mL (<4.55)
--- NOTE | 2019-07-25 13:59 | PDOC PROGRESS REPORT ---
Subjective Progress Note for:: 07/25/19 Subjective:: 07/25/2019: Patient was seen and examined. He is stable on nasal cannula oxygen. He says he is slightly better but far from his baseline. He is chronically on nasal cannula oxygen. Reason For Visit: ACUTE EXACERBATION OF COPD,ACUTE ON CHRONIC RESPIR Physical Exam Vital Signs: Temp Pulse Resp BP Pulse Ox 97.8 F 77 16 140/56 H 94 07/25/19 12:14 07/25/19 12:14 07/25/19 12:14 07/25/19 12:14 07/25/19 12:14 Intake & Output 07/24/19 07/25/19 07/26/19 06:59 06:59 06:59 Intake Total 590 Output Total 750 Balance -160 Weight 224 lb 6.889 oz Exam: Patient is no acute distress Alert oriented to time place person No anxiety or depression Head: atraumatic normocephalic Pupils: are equal reactive Neck: is supple and trachea is central no lymphadenopathy No pharyngeal erythema or exudates Heart: Regular rate and rhythm, no peripheral edema Lungs: Scattered bilateral wheezing, poor air entry, mild respiratory distress Abdomen: nontender nondistended Neurological exam: unremarkable Musculoskeletal: No joint swelling or effusion chronic lower back pain and tenderness No suicidal or homicidal ideation Results Laboratory Results: 07/25/19 06:16 07/24/19 07/24/19 07/24/19 19:40 19:40 19:40 WBC 9.6 RBC 3.51 L Hgb 10.4 L Hct 31.4 L MCV 90 MCH 29.5 MCHC 33.0 RDW 16.8 H Plt Count 251 Seg Neutrophils % 85.5 H VBG pH 7.36 VBG pCO2 51.3 VBG HCO3 28.4 VBG Base Excess 1.9 Sodium 132.4 L Potassium 4.9 Chloride 94 L Carbon Dioxide 28 Anion Gap 10 BUN 23 H Creatinine 1.15 Est GFR ( Amer) > 60 Glucose 124 H Calcium 9.2 Magnesium Total Bilirubin 0.5 AST 23 Alkaline Phosphatase 105 Total Protein 7.1 Albumin 3.8 Triglycerides Cholesterol LDL Cholesterol Direct VLDL Cholesterol HDL Cholesterol TSH Urine Color Urine Appearance Urine pH Ur Specific [place] Urine Protein Urine Glucose (UA) Urine Ketones Urine Blood Urine Nitrite Ur Leukocyte Esterase Urine WBC (Auto) Urine RBC (Auto) 07/24/19 07/25/19 07/25/19 22:26 06:16 06:16 WBC 9.4 RBC 3.25 L Hgb 9.4 L Hct 28.8 L MCV 89 MCH 28.9 MCHC 32.7 RDW 16.4 H Plt Count 188 Seg Neutrophils % VBG pH VBG pCO2 VBG HCO3 VBG Base Excess Sodium 134.3 L Potassium 4.6 Chloride 95 L Carbon Dioxide 26 Anion Gap 13 BUN 19 Creatinine 0.79 Est GFR ( Amer) > 60 Glucose 163 H Calcium 9.4 Magnesium 2.7 H Total Bilirubin AST Alkaline Phosphatase Total Protein Albumin Triglycerides 77 Cholesterol 148.12 LDL Cholesterol Direct 79 VLDL Cholesterol 15.0 HDL Cholesterol 53 TSH Urine Color YELLOW Urine Appearance CLEAR Urine pH 5.0 Ur Specific [place] 1.013 Urine Protein NEGATIVE Urine Glucose (UA) NEGATIVE Urine Ketones TRACE H Urine Blood NEGATIVE Urine Nitrite NEGATIVE Ur Leukocyte Esterase NEGATIVE Urine WBC (Auto) 0 Urine RBC (Auto) 0 07/25/19 06:16 WBC RBC Hgb Hct MCV MCH MCHC RDW Plt Count Seg Neutrophils % VBG pH VBG pCO2 VBG HCO3 VBG Base Excess Sodium Potassium Chloride Carbon Dioxide Anion Gap BUN Creatinine Est GFR ( Amer) Glucose Calcium Magnesium Total Bilirubin AST Alkaline Phosphatase Total Protein Albumin Triglycerides Cholesterol LDL Cholesterol Direct VLDL Cholesterol HDL Cholesterol TSH 0.15 L Urine Color Urine Appearance Urine pH Ur Specific [place] Urine Protein Urine Glucose (UA) Urine Ketones Urine Blood Urine Nitrite Ur Leukocyte Esterase Urine WBC (Auto) Urine RBC (Auto) 07/24/19 07/24/19 07/25/19 19:40 19:40 00:30 Creatine Kinase 34 L CK-MB (CK-2) Cancelled 0.66 Troponin I Cancelled < 0.012 07/25/19 07/25/19 06:16 06:16 Creatine Kinase 34 L CK-MB (CK-2) 0.71 Troponin I < 0.012 Impressions: Chest X-Ray 07/24/19 18:35 IMPRESSION: Chronic lung changes with no acute cardiopulmonary findings. Assessment and Plan - Diagnosis (1) Acute and chronic respiratory failure with hypoxia Is this a current diagnosis for this admission?: Yes Plan: Continue oxygen via nasal cannula. Wean as tolerated. (2) Acute exacerbation of chronic obstructive pulmonary disease Is this a current diagnosis for this admission?: Yes Plan: Start aggressive pulmonary toilet and bronchodilator management. Start oral prednisone. Empiric antibiotics. (3) Coronary artery disease Qualifiers: Coronary Disease-Associated Artery/Lesion type: [place] artery [place] vs. transplanted heart: [place] heart Associated angina: without angina Qualified Code(s): I25.10 - Atherosclerotic heart disease of [place] coronary artery without angina pectoris Is this a current diagnosis for this admission?: Yes Plan: No chest pain. Continue cardiac home medications. (4) Hypertension Qualifiers: Hypertension type: essential hypertension Qualified Code(s): I10 - Essential (primary) hypertension Is this a current diagnosis for this admission?: Yes Plan: Continue home antihypertensive medications. Monitor blood pressure. (5) Glaucoma Qualifiers: Glaucoma type: unspecified Laterality: bilateral Qualified Code(s): H40.9 - Unspecified glaucoma Is this a current diagnosis for this admission?: Yes Plan: Continue home medications (6) Hyperlipidemia Qualifiers: Hyperlipidemia type: unspecified Qualified Code(s): E78.5 - Hyperlipidemia, unspecified Is this a current diagnosis for this admission?: Yes Plan: Continue simvastatin
[2019-07-25 14:00] LABS: TROPONIN I < 0.012 ng/mL
[2019-07-25] MEDS ORDERED: AZITHROMYCIN INJ 500 MG VIAL IV SCH (14:00)
[2019-07-25 14:05] LABS: ANION GAP 12 (5-19); BLOOD UREA NITROGEN 18 mg/dL (7-20); CALCIUM 9.7 mg/dL (8.4-10.2); CARBON DIOXIDE 29 mmol/L (22-30); CHLORIDE 96 mmol/L (98-107); GLUCOSE 165 mg/dL (75-110); POTASSIUM 4.6 mmol/L (3.6-5.0)
[2019-07-25] MEDS: PREDNISONE 20 MG TABLET PO SCH (14:53)
[2019-07-25] MEDS: IPRATROPIUM/ALBUTEROL 0.5-2.5 MG/3 ML AMPUL NEB SCH ×2 (15:33→20:14)
[2019-07-25] MEDS: AZITHROMYCIN 500 MG in DEXTROSE 5%-WATER 250 ML IV SCH (15:55)
[2019-07-25] MEDS: BRIMONIDINE TARTRATE 0.2% OPH SOLN 5 ML OU SCH (17:31)
[2019-07-25] MEDS: SIMVASTATIN 40 MG TABLET PO SCH (22:20)
[2019-07-25] MEDS: GUAIFENESIN SYRP 200 MG/10 ML UDC PO PRN (23:15)
[2019-07-26 04:23] LABS: HEMATOCRIT 25.7 % (37.9-51.0); HEMOGLOBIN 8.3 g/dL (13.5-17.0); MEAN CORPUSCULAR HEMOGLOBIN 28.7 pg (27.0-33.4); MEAN CORPUSCULAR HGB CONC 32.3 g/dL (32.0-36.0); MEAN CORPUSCULAR VOLUME 89 fl (80-97); PLATELET COUNT 190 10^3/uL (150-450); RED BLOOD COUNT 2.88 10^6/uL (4.35-5.55); RED CELL DISTRIBUTION WIDTH 16.1 % (11.5-14.0); WHITE BLOOD COUNT 11.2 10^3/uL (4.0-10.5)
[2019-07-26] MEDS: HEPARIN SOD (PORCINE) 5,000 UNIT/ML 1 ML VIAL SUBCUT SCH ×3 (05:41→23:05)
[2019-07-26] MEDS: PANTOPRAZOLE SODIUM 40 MG TABLET.DR PO SCH ×2 (05:41→17:57)
[2019-07-26] MEDS: LEVOTHYROXINE SODIUM 0.05 MG TABLET PO SCH (05:41)
[2019-07-26] MEDS: ACETAMINOPHEN 325 MG TABLET PO PRN (05:54)
[2019-07-26] MEDS: IPRATROPIUM/ALBUTEROL 0.5-2.5 MG/3 ML AMPUL NEB SCH ×4 (08:08→19:37)
[2019-07-26] MEDS: BUDESONIDE NEB 0.5 MG/2 ML AMPUL NEB SCH ×2 (08:08→19:37)
[2019-07-26] MEDS: GABAPENTIN 300 MG CAPSULE PO SCH ×2 (08:14→23:05)
[2019-07-26] MEDS: AMLODIPINE BESYLATE 10 MG TABLET PO SCH (09:37)
[2019-07-26] MEDS: ASPIRIN 81 MG TABLET, ENT COATED PO SCH (09:37)
[2019-07-26] MEDS: METOPROLOL TARTRATE 50 MG TABLET PO SCH ×2 (09:37→17:57)
[2019-07-26] MEDS: CLOPIDOGREL BISULFATE 75 MG TABLET PO SCH (09:38)
[2019-07-26] MEDS: FLUTICASONE/VILANTEROL 200-25 MCG/DOSE IH SCH (09:38)
[2019-07-26] MEDS: TIMOLOL MALEATE 0.5% OPH SOLN 5 ML OU SCH ×2 (09:38→17:57)
[2019-07-26] MEDS: ALLOPURINOL 300 MG TABLET PO SCH ×2 (09:38→17:57)
[2019-07-26] MEDS: DOCUSATE SODIUM 100 MG CAPSULE PO SCH ×2 (09:38→17:57)
[2019-07-26] MEDS: PREDNISONE 20 MG TABLET PO SCH (09:38)
[2019-07-26] MEDS: UMECLIDINIUM BROMIDE 62.5 MCG/DOSE IH SCH (09:38)
[2019-07-26] MEDS: FAMOTIDINE 20 MG TABLET PO SCH ×2 (09:38→23:05)
[2019-07-26] MEDS: FUROSEMIDE 40 MG TABLET PO SCH (09:38)
[2019-07-26] MEDS: LOSARTAN POTASSIUM 25 MG TABLET PO SCH (09:38)
[2019-07-26] MEDS: BRIMONIDINE TARTRATE 0.2% OPH SOLN 5 ML OU SCH ×2 (09:39→17:57)
[2019-07-26] MEDS: AZITHROMYCIN 500 MG in DEXTROSE 5%-WATER 250 ML IV SCH (09:48)
--- NOTE | 2019-07-26 13:06 | PDOC PROGRESS REPORT ---
Subjective Progress Note for:: 07/26/19 Subjective:: 07/25/2019: Patient was seen and examined. He is stable on nasal cannula oxygen. He says he is slightly better but far from his baseline. He is chronically on nasal cannula oxygen. 07/26/2019: Patient was seen and examined. Still requiring nasal cannula oxygen. Continues to improve but still not at his baseline. Reason For Visit: ACUTE EXACERBATION OF COPD,ACUTE ON CHRONIC RESPIR Physical Exam Vital Signs: Temp Pulse Resp BP Pulse Ox 97.8 F 75 16 125/52 L 93 07/26/19 11:41 07/26/19 11:55 07/26/19 11:55 07/26/19 11:41 07/26/19 11:55 Intake & Output 07/25/19 07/26/19 07/27/19 06:59 06:59 06:59 Intake Total 590 815 250 Output Total 750 1150 Balance -160 -335 250 Weight 224 lb 6.889 oz 223 lb 12.307 oz Exam: Patient is no acute distress Alert oriented to time place person No anxiety or depression Head: atraumatic normocephalic Pupils: are equal reactive Neck: is supple and trachea is central no lymphadenopathy No pharyngeal erythema or exudates Heart: Regular rate and rhythm, no peripheral edema Lungs: Scattered bilateral wheezing, poor air entry, mild respiratory distress Abdomen: nontender nondistended Neurological exam: unremarkable Musculoskeletal: No joint swelling or effusion chronic lower back pain and tenderness No suicidal or homicidal ideation Results Laboratory Results: 07/26/19 03:45 07/25/19 13:00 07/25/19 07/26/19 13:00 03:45 WBC 11.2 H RBC 2.88 L Hgb 8.3 L Hct 25.7 L MCV 89 MCH 28.7 MCHC 32.3 RDW 16.1 H Plt Count 190 Sodium 136.6 L Potassium 4.6 Chloride 96 L Carbon Dioxide 29 Anion Gap 12 BUN 18 Creatinine 0.78 Est GFR ( Amer) > 60 Glucose 165 H Calcium 9.7 Magnesium 2.5 H 07/24/19 07/24/19 07/25/19 19:40 19:40 00:30 Creatine Kinase 34 L CK-MB (CK-2) Cancelled 0.66 Troponin I Cancelled < 0.012 07/25/19 07/25/19 07/25/19 06:16 06:16 13:00 Creatine Kinase 34 L 31 L CK-MB (CK-2) 0.71 Troponin I < 0.012 07/25/19 13:00 Creatine Kinase CK-MB (CK-2) 1.08 Troponin I < 0.012 Impressions: Chest X-Ray 07/24/19 18:35 IMPRESSION: Chronic lung changes with no acute cardiopulmonary findings. Assessment and Plan - Diagnosis (1) Acute and chronic respiratory failure with hypoxia Is this a current diagnosis for this admission?: Yes Plan: Continue oxygen via nasal cannula. Wean as tolerated. (2) Acute exacerbation of chronic obstructive pulmonary disease Is this a current diagnosis for this admission?: Yes Plan: Continue aggressive pulmonary toilet and bronchodilator management. Continue oral prednisone. Continue empiric antibiotics. (3) Coronary artery disease Qualifiers: Coronary Disease-Associated Artery/Lesion type: [place] artery [place] vs. transplanted heart: [place] heart Associated angina: without angina Qualified Code(s): I25.10 - Atherosclerotic heart disease of [place] coronary artery without angina pectoris Is this a current diagnosis for this admission?: Yes Plan: No chest pain. Continue cardiac home medications. (4) Hypertension Qualifiers: Hypertension type: essential hypertension Qualified Code(s): I10 - Essential (primary) hypertension Is this a current diagnosis for this admission?: Yes Plan: Continue home antihypertensive medications. Monitor blood pressure. (5) Glaucoma Qualifiers: Glaucoma type: unspecified Laterality: bilateral Qualified Code(s): H40.9 - Unspecified glaucoma Is this a current diagnosis for this admission?: Yes Plan: Continue home medications (6) Hyperlipidemia Qualifiers: Hyperlipidemia type: unspecified Qualified Code(s): E78.5 - Hyperlipidemia, unspecified Is this a current diagnosis for this admission?: Yes Plan: Continue simvastatin
[2019-07-26] MEDS: SIMVASTATIN 40 MG TABLET PO SCH (23:05)
[2019-07-26] MEDS: GUAIFENESIN SYRP 200 MG/10 ML UDC PO PRN (23:05)
[2019-07-26] MEDS: LATANOPROST 0.005% OPH SOLN 2.5 ML OU SCH (23:06)
[2019-07-27] MEDS: ACETAMINOPHEN 325 MG TABLET PO PRN ×2 (04:29→13:47)
[2019-07-27 05:17] LABS: HEMATOCRIT 25.8 % (37.9-51.0); HEMOGLOBIN 8.6 g/dL (13.5-17.0); MEAN CORPUSCULAR HEMOGLOBIN 29.6 pg (27.0-33.4); MEAN CORPUSCULAR HGB CONC 33.2 g/dL (32.0-36.0); MEAN CORPUSCULAR VOLUME 89 fl (80-97); PLATELET COUNT 203 10^3/uL (150-450); RED CELL DISTRIBUTION WIDTH 16.3 % (11.5-14.0)
[2019-07-27] MEDS: LEVOTHYROXINE SODIUM 0.05 MG TABLET PO SCH (05:38)
[2019-07-27] MEDS: PANTOPRAZOLE SODIUM 40 MG TABLET.DR PO SCH ×2 (05:38→17:15)
[2019-07-27] MEDS: HEPARIN SOD (PORCINE) 5,000 UNIT/ML 1 ML VIAL SUBCUT SCH ×2 (05:38→13:47)
[2019-07-27] MEDS: IPRATROPIUM/ALBUTEROL 0.5-2.5 MG/3 ML AMPUL NEB SCH ×3 (07:56→16:03)
[2019-07-27] MEDS: BUDESONIDE NEB 0.5 MG/2 ML AMPUL NEB SCH (07:56)
[2019-07-27] MEDS: GABAPENTIN 300 MG CAPSULE PO SCH (08:54)
[2019-07-27] MEDS: ALLOPURINOL 300 MG TABLET PO SCH ×2 (09:28→17:15)
[2019-07-27] MEDS: LOSARTAN POTASSIUM 25 MG TABLET PO SCH (09:28)
[2019-07-27] MEDS: FUROSEMIDE 40 MG TABLET PO SCH (09:29)
[2019-07-27] MEDS: DOCUSATE SODIUM 100 MG CAPSULE PO SCH ×2 (09:29→17:15)
[2019-07-27] MEDS: AMLODIPINE BESYLATE 10 MG TABLET PO SCH (09:29)
[2019-07-27] MEDS: AZITHROMYCIN 500 MG in DEXTROSE 5%-WATER 250 ML IV SCH (09:29)
[2019-07-27] MEDS: METOPROLOL TARTRATE 50 MG TABLET PO SCH ×2 (09:29→17:15)
[2019-07-27] MEDS: PREDNISONE 20 MG TABLET PO SCH (09:29)
[2019-07-27] MEDS: CLOPIDOGREL BISULFATE 75 MG TABLET PO SCH (09:29)
[2019-07-27] MEDS: FAMOTIDINE 20 MG TABLET PO SCH (09:29)
[2019-07-27] MEDS: TIMOLOL MALEATE 0.5% OPH SOLN 5 ML OU SCH ×2 (09:29→17:16)
[2019-07-27] MEDS: BRIMONIDINE TARTRATE 0.2% OPH SOLN 5 ML OU SCH ×2 (09:29→17:15)
[2019-07-27] MEDS: ASPIRIN 81 MG TABLET, ENT COATED PO SCH (09:29)
[2019-07-27] MEDS: UMECLIDINIUM BROMIDE 62.5 MCG/DOSE IH SCH (09:30)
[2019-07-27] MEDS: FLUTICASONE/VILANTEROL 200-25 MCG/DOSE IH SCH (09:30)
--- NOTE | 2019-07-27 11:17 | PDOC DISCHARGE SUMMARY ---
Impression - Admit/DC Date/PCP Admission Date/Primary Care Provider: 07/24/19 21:51 Discharge Date: 07/27/19 - Discharge Diagnosis (1) Acute and chronic respiratory failure with hypoxia Is this a current diagnosis for this admission?: Yes (2) Acute exacerbation of chronic obstructive pulmonary disease Is this a current diagnosis for this admission?: Yes (3) Coronary artery disease Is this a current diagnosis for this admission?: Yes (4) Hypertension Is this a current diagnosis for this admission?: Yes (5) Glaucoma Is this a current diagnosis for this admission?: Yes (6) Hyperlipidemia Is this a current diagnosis for this admission?: Yes - Additional Information Resuscitation Status: Full Code Prescriptions: Azithromycin 250 mg PO DAILY #4 tablet Home Medications: Acetaminophen [Tylenol] 650 mg PO Q6HP PRN 07/25/19 Albuterol Sulfate [Proair Digihaler] 2 puff IH Q8HP PRN 07/25/19 Allopurinol [Zyloprim 300 mg Tablet] 300 mg PO BID 07/25/19 Amlodipine Besylate [Norvasc 10 mg Tablet] 10 mg PO DAILY 07/25/19 Aspirin [Ecotrin 81 mg EC Tablet] 81 mg PO DAILY 07/25/19 Brimonidine Tartrate [Alphagan 0.2% Oph Soln 5 ml] 1 drop OU BID 07/25/19 Budesonide/Formoterol Fumarate [Symbicort HFA 160-4.5 mcg Inhaler 6 gm] 2 puff IH Q12 07/25/19 Calcium Carbonate [Calcium] 500 mg PO DAILYP PRN 07/25/19 Clopidogrel Bisulfate [Plavix 75 mg Tablet] 75 mg PO DAILY 07/25/19 Furosemide [Lasix 40 mg Tablet] 40 mg PO DAILY 07/25/19 Latanoprost/Pf [Latanoprost 0.005% Eye Drop] 1 drop OU QHS 07/25/19 Levothyroxine Sodium [Synthroid 0.05 mg Tablet] 50 mcg PO DAILY 07/25/19 Losartan Potassium [Cozaar] 100 mg PO DAILY 07/25/19 Metoprolol Tartrate [Lopressor] 50 mg PO BID 07/25/19 Pantoprazole Sodium [Protonix [address] Tablet] 40 mg PO BID 07/25/19 Simvastatin 40 mg PO QHS 07/25/19 Sodium Chloride [Saline Nasal [place]] 1 spray NS DAILYP PRN 07/25/19 Timolol [Betimol] 1 drop OU BID 07/25/19 Tiotropium [place] [Spiriva Handihaler 5 Cap/Kit (18 Mcg/Cap)] 18 mcg IH DAILY 07/25/19 Acetaminophen [Tylenol 325 mg Tablet] 650 mg PO Q4HP PRN tablet 07/27/19 Albuterol Sulfate [Ventolin 0.083% Neb 2.5 mg/3 mL Ampul] 2.5 mg NEB RTQ2HP PRN vial.neb 07/27/19 Azithromycin 250 mg PO DAILY #4 tablet 07/27/19 Docusate Sodium [Colace 100 mg Capsule] 100 mg PO BID capsule 07/27/19 Famotidine [Pepcid 20 mg Tablet] 20 mg PO Q12 tablet 07/27/19 Guaifenesin [Robitussin Syrup 200 mg/10 ml Ud Cup] 200 mg PO Q4HP PRN udc 07/27/19 Ipratropium/Albuterol Sulfate [Duoneb 3 ml Ampul] 3 ml NEB [id number] vial.neb 07/27/19 Nicotine [Nicoderm 21 mg/24 Hr Transderm Patch] 1 each TD DAILYP PRN patch.td24 07/27/19 Prednisone [Deltasone 20 mg Tablet] 40 mg PO DAILY #10 tablet 07/27/19 History of Present Illiness History of Present Illness: ENRIQUE JONES is a 78 year old male who presented to the emergency room with acute dyspnea. The patient admits suddenly developing severe dyspnea worsened by any exertion and accompanied by wheezing and air hunger this afternoon just prior to coming to the emergency room. He also reports the associated symptoms of weakness/hoarseness of his voice and vague generalized chest discomfort with breathing. He denies other associated or accompanying signs and symptoms. EMS was called to the scene and administered 2 g of magnesium sulfate and 125 mg of Solu-Medrol IV as well as providing the patient with 2 DuoNeb treatments during transportation. Patient had improved substantially by the time he arrived in the ER although he still required BiPAP therapy to maintain an adequate oxygen saturation. He admits a long history of COPD and has had numerous prior similar episodes. He has not identified any additional aggravating or ameliorating factors for his dyspnea. In the emergency room he is evaluation revealed no evidence of acute process on his chest x-ray though changes of COPD were noted. The remainder of his ER evaluation was unremarkable. Patient was subsequently admitted to the hospital for further evaluation and treatment. Hospital Course Hospital Course: (1) Acute and chronic respiratory failure with hypoxia Currently stable on nasal cannula oxygen which is his baseline. (2) Acute exacerbation of chronic obstructive pulmonary disease Received aggressive pulmonary toilet and bronchodilator management. Started on oral prednisone. Also started on azithromycin. (3) Coronary artery disease No chest pain. Continue cardiac home medications. (4) Hypertension Continue home antihypertensive medications. Monitor blood pressure. (5) Glaucoma Continue home medications (6) Hyperlipidemia Continue simvastatin Patient is at or very close to his baseline. He is stable for discharge to rehab. Discussed with the patient and he is in agreement. Continue short course of oral prednisone and oral azithromycin Physical Exam Vital Signs: Temp Pulse Resp BP Pulse Ox 97.4 F 63 16 151/61 H 98 07/27/19 08:13 07/27/19 08:13 07/27/19 08:13 07/27/19 08:13 07/27/19 08:13 Intake & Output 07/26/19 07/27/19 07/28/19 06:59 06:59 06:59 Intake Total 815 2020 250 Output Total 1150 1650 Balance -335 370 250 Weight 223 lb 12.307 oz 223 lb 8.78 oz Exam: Patient is no acute distress Alert oriented to time place person No anxiety or depression Head: atraumatic normocephalic Pupils: are equal reactive Neck: is supple and trachea is central no lymphadenopathy No pharyngeal erythema or exudates Heart: Regular rate and rhythm, no peripheral edema Lungs: Scattered bilateral wheezing, poor air entry, mild respiratory distress Abdomen: nontender nondistended Neurological exam: unremarkable Musculoskeletal: No joint swelling or effusion chronic lower back pain and tenderness No suicidal or homicidal ideation Results Laboratory Results: WBC 9.0 10^3/uL (4.0-10.5) 07/27/19 03:51 RBC 2.90 10^6/uL (4.35-5.55) L 07/27/19 03:51 Hgb 8.6 g/dL (13.5-17.0) L 07/27/19 03:51 Hct 25.8 % (37.9-51.0) L 07/27/19 03:51 MCV 89 fl (80-97) 07/27/19 03:51 MCH 29.6 pg (27.0-33.4) 07/27/19 03:51 MCHC 33.2 g/dL (32.0-36.0) 07/27/19 03:51 RDW 16.3 % (11.5-14.0) H 07/27/19 03:51 Plt Count 203 10^3/uL (150-450) 07/27/19 03:51 Lymph % (Auto) 6.6 % (13-45) L 07/24/19 19:40 [place] % (Auto) 4.8 % (3-13) 07/24/19 19:40 Eos % (Auto) 2.4 % (0-6) 07/24/19 19:40 Baso % (Auto) 0.7 % (0-2) 07/24/19 19:40 Absolute Neuts (auto) 8.3 10^3/uL (1.7-8.2) H 07/24/19 19:40 Absolute Lymphs (auto) 0.6 10^3/uL (0.5-4.7) 07/24/19 19:40 Absolute Monos (auto) 0.5 10^3/uL (0.1-1.4) 07/24/19 19:40 Absolute Eos (auto) 0.2 10^3/uL (0.0-0.6) 07/24/19 19:40 Absolute Basos (auto) 0.1 10^3/uL (0.0-0.2) 07/24/19 19:40 Seg Neutrophils % 85.5 % (42-78) H 07/24/19 19:40 VBG pH 7.36 (7.30-7.42) 07/24/19 19:40 VBG pCO2 51.3 mmHg (35-63) 07/24/19 19:40 VBG HCO3 28.4 mmol/L (20-32) 07/24/19 19:40 VBG Base Excess 1.9 mmol/L 07/24/19 19:40 Sodium 136.6 mmol/L (137-145) L 07/25/19 13:00 Potassium 4.6 mmol/L (3.6-5.0) 07/25/19 13:00 Chloride 96 mmol/L (98-107) L 07/25/19 13:00 Carbon Dioxide 29 mmol/L (22-30) 07/25/19 13:00 Anion Gap 12 (5-19) 07/25/19 13:00 BUN 18 mg/dL (7-20) 07/25/19 13:00 Creatinine 0.78 mg/dL (0.52-1.25) 07/25/19 13:00 Est GFR ( Amer) > 60 (>60) 07/25/19 13:00 Est GFR (MDRD) Non-Af > 60 (>60) 07/25/19 13:00 Glucose 165 mg/dL (75-110) H 07/25/19 13:00 Calcium 9.7 mg/dL (8.4-10.2) 07/25/19 13:00 Magnesium 2.5 mg/dL (1.6-2.3) H 07/25/19 13:00 Total Bilirubin 0.5 mg/dL (0.2-1.3) 07/24/19 19:40 Direct Bilirubin 0.0 mg/dL (0.0-0.4) 07/24/19 19:40 Neonat Total Bilirubin Not Reportable 07/24/19 19:40 Neonat Direct Bilirubin Not Reportable 07/24/19 19:40 Neonat Indirect Bili Not Reportable 07/24/19 19:40 AST 23 U/L (17-59) 07/24/19 19:40 ALT 15 U/L (<50) 07/24/19 19:40 Alkaline Phosphatase 105 U/L (38-126) 07/24/19 19:40 Creatine Kinase 31 U/L (55-170) L 07/25/19 13:00 CK-MB (CK-2) 1.08 ng/mL (<4.55) 07/25/19 13:00 Troponin I < 0.012 ng/mL 07/25/19 13:00 Total Protein 7.1 g/dL (6.3-8.2) 07/24/19 19:40 Albumin 3.8 g/dL (3.5-5.0) 07/24/19 19:40 Triglycerides 77 mg/dL (<150) 07/25/19 06:16 Cholesterol 148.12 mg/dL (0-200) 07/25/19 06:16 LDL Cholesterol Direct 79 mg/dL (<100) 07/25/19 06:16 VLDL Cholesterol 15.0 mg/dL (10-31) 07/25/19 06:16 HDL Cholesterol 53 mg/dL (>40) 07/25/19 06:16 TSH 0.15 uIU/mL (0.47-4.68) L 07/25/19 06:16 Urine Color YELLOW 07/24/19 22:26 Urine Appearance CLEAR 07/24/19 22: Urine pH 5.0 (5.0-9.0) 07/24/19 22:26 Ur Specific [place] 1.013 07/24/19 22:26 Urine Protein NEGATIVE mg/dL (NEGATIVE) 07/24/19 22: Urine Glucose (UA) NEGATIVE mg/dL (NEGATIVE) 07/24/19 22: Urine Ketones TRACE mg/dL (NEGATIVE) H 07/24/19 22:26 Urine Blood NEGATIVE (NEGATIVE) 07/24/19 22:26 Urine Nitrite NEGATIVE (NEGATIVE) 07/24/19 22:26 Urine Bilirubin NEGATIVE (NEGATIVE) 07/24/19 22:26 Urine Urobilinogen NEGATIVE mg/dL (<2.0) 07/24/19 22:26 Ur Leukocyte Esterase NEGATIVE (NEGATIVE) 07/24/19 22:26 Urine WBC (Auto) 0 /HPF 07/24/19 22:26 Urine RBC (Auto) 0 /HPF 07/24/19 22:26 U Hyaline Cast (Auto) 6 /LPF 07/24/19 22:26 Urine Mucus (Auto) RARE /LPF 07/24/19 22:26 Urine Ascorbic Acid NEGATIVE (NEGATIVE) 07/24/19 22:26 Valproic Acid < 10.0 ug/mL (50.0-120.0) L 07/25/19 13:00 07/24/19 07/25/19 07/25/19 19:40 00:30 06:16 CK-MB (CK-2) Cancelled 0.66 0.71 Troponin I Cancelled < 0.012 < 0.012 07/25/19 13:00 CK-MB (CK-2) 1.08 Troponin I < 0.012 Impressions: Chest X-Ray 07/24/19 18:35 IMPRESSION: Chronic lung changes with no acute cardiopulmonary findings. Plan Time Spent: Greater than 30 Minutes - 40 minutes Stroke Is this a Stroke Patient?: No Acute Heart Failure - Is this a Heart Failure Patient?: No
[2019-07-27 15:32] VITALS: BP 135/51
== END 2019-07-27 18:35 | DRG 189 ==
LOC: ER 18:28 → EH 21:51 → 3N 23:43
PROVIDERS: ADMIT Emergency Medicine; ATTEND Emergency Medicine
PROC: 5A09457 Assistance with Respiratory Ventilation, 24-96 Consecutive Hours, Continuous Positive Airway Pressure (ICD-10-PCS; principal; 2019-07-24)
DX: J96.21 Acute and chronic respiratory failure with hypoxia (principal); J44.1 Chronic obstructive pulmonary disease with (acute) exacerbation; F17.210 Nicotine dependence, cigarettes, uncomplicated; I25.10 Atherosclerotic heart disease of native coronary artery without angina pectoris; H40.9 Unspecified glaucoma; E78.5 Hyperlipidemia, unspecified; I10 Essential (primary) hypertension; Z99.81 Dependence on supplemental oxygen; Z86.73 Personal history of transient ischemic attack (TIA), and cerebral infarction without residual deficits; F10.20 Alcohol dependence, uncomplicated; Z82.49 Family history of ischemic heart disease and other diseases of the circulatory system; Z79.51 Long term (current) use of inhaled steroids; Z79.82 Long term (current) use of aspirin; Z79.899 Other long term (current) drug therapy; Z95.5 Presence of coronary angioplasty implant and graft
CPT/HCPCS: 36415; 71045; 80048; 80053; 80061; 80164; 81001; 82550; 82553; 82803; 83735; 84443; 84484; 85025; 85027; 87040; 87070; 87077; 87186; 87205; 93005; 93010; 94640; 94660; 99291; J0456; J1644; J2920; J3490; J7060; J7512; J7620

== ENCOUNTER 2019-10-04 02:32 | Inpatient (IN) | payer OTHER, MEDICARE ==
--- NOTE | 2019-10-04 02:55 | ER Document Report ---
Entered by ISACC LUI SCRIBE 10/04/19 0247 Acting as scribe for:NINA ALEX IV, MD ED Respiratory Problem - General Chief Complaint: Respiratory Distress Stated Complaint: RESPIRATORY DISTRESS Mode of Arrival: Medic Information source: Emergency Med Personnel Notes: This 79 year old male patient brought in by EMS presents to the ED today with complaints of severe dyspnea that began prior to arrival. Per EMS, patient was 90% on 3L home O2 upon their arrival. EMS states that after standing the patient up to place him on the stretcher, the patient's O2 sat dropped to 86%. They re port that they placed the patient on CPAP and administered x3 A&A treatments, 125 mg Solumedrol IV, and 2 g Magnesium IV. EMS reports a history of end stage COPD and diabetes. According to EMS, the reported that the patient was admitted last month for PNA and COPD exacerbation and discharged to a rehab facility; patient returned home from rehab x3 days ago. TRAVEL OUTSIDE OF THE [place] IN LAST 30 DAYS: No - Related Data Allergies/Adverse Reactions: No Known Allergies Allergy (Unverified 03/14/18 16:01) Past Medical History - General Information source: Patient, [facility] Records - Social History Smoking Status: Former Smoker Cigarette use (# per day): No Chew tobacco use (# tins/day): No Smoking Education Provided: No Frequency of alcohol use: None Drug Abuse: None Lives with: Spouse/Significant other Family History: Reviewed & Not Pertinent, CAD, Hypertension Patient has suicidal ideation: No Patient has homicidal ideation: No - Past Medical History Cardiac Medical History: Reports: Hx Coronary Artery Disease, Hx Hypercholesterolemia, Hx Hypertension, Hx Peripheral Vascular Disease Pulmonary Medical History: Reports: Hx COPD, Hx Respiratory Failure - Chronic hypoxic respiratory failure Musculoskeletal Medical History: Reports Hx Gout Past Surgical History: Reports: Hx Cardiac Catheterization, Hx Coronary Stent - X4, Hx Herniorrhaphy - Bilateral inguinal herniorrhaphies, Hx Tonsillectomy, Other - Facial tumor excision Review of Systems - Review of Systems Constitutional: No symptoms reported EENT: No symptoms reported Cardiovascular: See HPI, Dyspnea Respiratory: No symptoms reported Gastrointestinal: No symptoms reported Genitourinary: No symptoms reported Male Genitourinary: No symptoms reported Musculoskeletal: No symptoms reported Skin: No symptoms reported Hematologic/Lymphatic: No symptoms reported Neurological/Psychological: No symptoms reported -: Yes All other systems reviewed and negative Physical Exam - Vital signs Vitals: Pulse Ox 94 10/04/19 02:32 - General General appearance: Alert - HEENT Head: Normocephalic, Atraumatic Eyes: Normal Pupils: PERRL - Respiratory Respiratory status: Respiratory distress - on CPAP Chest status: Nontender Breath sounds: Decreased air movement - Diminished breath sounds Chest palpation: Normal - Cardiovascular Rhythm: Regular Heart sounds: Normal auscultation Murmur: No - Abdominal Inspection: Normal Distension: No distension Bowel sounds: Normal Tenderness: Nontender Organomegaly: No organomegaly - Back Back: Normal, Nontender - Extremities General upper extremity: Normal inspection General lower extremity: Normal inspection - Neurological Neuro grossly intact: Yes - Psychological Associated symptoms: Normal affect, Normal mood - Skin Skin Temperature: Warm Skin Moisture: Dry Skin Color: Normal Course - Re-evaluation Re-evalutation: 10/04/19 04:32 Results of ED MSE discussed with patient. Recommendation for admission discussed with patient. Patient agreed to admission. All questions were answered prior to contacting hospitalist for admission. - Vital Signs Vital signs: Temp Pulse Resp BP Pulse Ox 97.9 F 19 124/63 95 10/04/19 02:33 10/04/19 05:01 10/04/19 05:00 10/04/19 05:01 - Laboratory Result Diagrams: 10/04/19 03:05 10/04/19 03:05 Laboratory results interpreted by me: 10/04/19 10/04/19 10/04/19 02:37 02:37 03:05 Hgb 13.1 L RDW 21.8 H Plt Count 119 L Lymph % (Auto) 10.6 L Absolute Neuts (auto) 8.3 H Seg Neutrophils % 83.8 H ABG pO2 71.8 L ABG HCO3 29.4 H ABG Total CO2 30.7 H Sodium Chloride Carbon Dioxide Anion Gap Glucose Lactic Acid 2.2 H Albumin 10/04/19 03:05 Hgb RDW Plt Count Lymph % (Auto) Absolute Neuts (auto) Seg Neutrophils % ABG pO2 ABG HCO3 ABG Total CO2 Sodium 136.3 L Chloride 97 L Carbon Dioxide 36 H Anion Gap 3 L Glucose 163 H Lactic Acid Albumin 3.4 L - Diagnostic Test Radiology reviewed: Reports reviewed - EKG Interpretation by Me Additional EKG results interpreted by me: 10/04/19 04:33 EKG obtained on 10/04/2019 at 0241 hrs. was interpreted by this MD. Findings: Sinus rhythm, rate 94, normal axis, P waves proceed QRS complexes, QRS complexes appear narrow, there are no obvious patterns of ST segment elevation or depression present to suggest acute myocardial ischemia or infarction. Impression: Normal sinus rhythm with nonspecific ST segments. - Consults dr. alo tirado Time consulted: 04:32 - dr. tirado agreed to admit patient Reason for consultation: 10/04/19 04:34 COPD exacerbation, on BiPAP Consulted provider: will see as inpatient Discharge - Discharge Clinical Impression: Acute exacerbation of chronic obstructive pulmonary disease Condition: Good Disposition: ADMITTED INPATIENT Admitting Provider: Christopher (Hospitalist) Unit Admitted: Medical Floor I personally performed the services described in the documentation, reviewed and edited the documentation which was dictated to the scribe in my presence, and it accurately records my words and actions.
--- NOTE | 2019-10-04 03:29 | RADIOLOGY REPORT (SQ) ---
AP Portable chest: 10/04/2019 2:27 AM CDT History: 79-year old patient with dyspnea. Comparison: Chest radiograph performed 07/24/2019. Findings: The cardiomediastinal silhouette is enlarged. No pneumothorax is seen. There are chronic bibasilar airspace opacities associated with trace effusions. Atherosclerotic calcifications are seen at the aortic arch. Emphysematous changes are present. There is volume loss within the left hemithorax. Impression: There are chronic bibasilar airspace opacities with trace effusions or scarring. Superimposed infection is difficult to fully.
[2019-10-04 03:52] LABS: ARTERIAL BLOOD BASE EXCESS 4.7 mmol/L; ARTERIAL BLOOD FIO2 40%; ARTERIAL BLOOD H2CO3 1.31 mmol/L (1.05-1.35); ARTERIAL BLOOD HCO3 29.4 mmol/L (20-24); ARTERIAL BLOOD PCO2 43.5 mmHg (35-45); ARTERIAL BLOOD PH 7.45 (7.35-7.45); ARTERIAL BLOOD PO2 71.8 mmHg (80-100); ARTERIAL BLOOD TOTAL CO2 30.7 mmol/L (23-27)
[2019-10-04 03:52] LABS: ABSOLUTE LYMPHOCYTES (AUTO) 1.1 10^3/uL (0.5-4.7); ABSOLUTE MONOCYTES (AUTO) 0.5 10^3/uL (0.1-1.4); ABSOLUTE NEUT (AUTO) 8.3 10^3/uL (1.7-8.2); BASOPHILS % (AUTO) 0.3 % (0-2); EOSINOPHILS % (AUTO) 0.2 % (0-6); HEMATOCRIT 40.5 % (37.9-51.0); HEMOGLOBIN 13.1 g/dL (13.5-17.0); LYMPHOCYTES % (AUTO) 10.6 % (13-45); MEAN CORPUSCULAR HEMOGLOBIN 29.2 pg (27.0-33.4); MEAN CORPUSCULAR HGB CONC 32.3 g/dL (32.0-36.0); MEAN CORPUSCULAR VOLUME 91 fl (80-97); MONOCYTES % (AUTO) 5.1 % (3-13); PLATELET COUNT 119 10^3/uL (150-450); RED BLOOD COUNT 4.48 10^6/uL (4.35-5.55); RED CELL DISTRIBUTION WIDTH 21.8 % (11.5-14.0); SEGMENTED NEUTROPHILS % (AUTO) 83.8 % (42-78); TOTAL CELLS COUNTED % (AUTO) 100 %
[2019-10-04 04:10] LABS: TROPONIN I 0.018 ng/mL
[2019-10-04 04:14] LABS: ALBUMIN 3.4 g/dL (3.5-5.0); ALKALINE PHOSPHATASE 75 U/L (38-126); ASPARTATE AMINO TRANSFERASE 31 U/L (17-59); BILIRUBIN,DIRECT 0.2 mg/dL (0.0-0.4); BILIRUBIN,TOTAL 0.5 mg/dL (0.2-1.3); BLOOD UREA NITROGEN 19 mg/dL (7-20); CALCIUM 8.7 mg/dL (8.4-10.2); CHLORIDE 97 mmol/L (98-107); GLUCOSE 163 mg/dL (75-110); POTASSIUM 3.7 mmol/L (3.6-5.0); TOTAL PROTEIN 6.4 g/dL (6.3-8.2)
[2019-10-04 04:19] LABS: CARBON DIOXIDE 36 mmol/L (22-30)
[2019-10-04 04:20] LABS: ANION GAP 3 (5-19)
[2019-10-04] MEDS ORDERED: SODIUM CHLORIDE NASAL SPRAY 44 ML NASL PRN (04:51)
[2019-10-04] MEDS ORDERED: GUAIFENESIN SYRP 200 MG/10 ML UDC PO PRN (04:51)
[2019-10-04] MEDS ORDERED: LEVALBUTEROL HCL NEB 0.63 MG/3 ML AMPUL NEB PRN (04:56)
[2019-10-04] MEDS ORDERED: MAGNESIUM HYDROXIDE SUSP 30 ML UDCUP PO PRN (04:56)
[2019-10-04] MEDS ORDERED: MAG HYDROX/AL HYDROX/SIMETH SUSP 30 ML UDCUP PO PRN (04:56)
[2019-10-04] MEDS ORDERED: ONDANSETRON HCL INJ/PF 4 MG/2 ML SDV IV PRN (04:56)
[2019-10-04] MEDS ORDERED: LORAZEPAM INJ 2 MG/1 ML VIAL IV PRN (05:02)
[2019-10-04] MEDS ORDERED: ACETAMINOPHEN 325 MG TABLET PO PRN (05:02)
--- NOTE | 2019-10-04 06:55 | PDOC H&P ---
History of Present Illness Admission Date/PCP: 10/04/2019 04:33 [facility] Patient complains of: Dyspnea History of Present Illness: ENRIQUE JONES is a 79 year old male who presented emergency room with acute dyspnea. He admits the sudden onset of severe dyspnea, while at home, just prior to coming to the emergency room via EMS. His dyspnea was constant, severe and worsened by any activity or exertion. His dyspnea was accompanied by wheezing and air hunger. He was using his home O2 and medications as prescribed without improvement. He denies other associated or accompanying signs and symptoms. He admits prior similar episodes related to his COPD and previous pneumonias. He has not identified any additional aggravating or ameliorating factors for his dyspnea. EMS treated the patient in route with IV Solu-Medrol, IV magnesium sulfate, serial albuterol nebulizer treatments and CPAP. Upon arrival in the emergency room patient was placed on BiPAP and continued to show some improvement although he has not tolerated any efforts to wean him from BiPAP. He was subsequently admitted to the hospital for further evaluation and treatment. Past Medical History Cardiac Medical History: Reports: Coronary Artery Disease, Hyperlipidema, Hypert ension, Peripheral Vascular Disease Denies: Atrial Fibrillation, Congestive Heart Failure, Myocardial Infarction Pulmonary Medical History: Reports: Chronic Obstructive Pulmonary Disease (COPD), Pneumonia, Respiratory Failure - Chronic hypoxic respiratory failure Denies: Asthma EENT Medical History: Reports: Eyes - Glaucoma Denies: Cataracts, Ears - Hearing aids Neurological Medical History: Denies: Hemorrhagic CVA, Ischemic CVA, Seizures Endocrine Medical History: Reports: Hypothyroidism Denies: Diabetes Mellitus Type 1, Diabetes Mellitus Type 2, Hyperthyroidism Renal/ Medical History: Denies: Chronic Kidney Disease, Nephrolithiasis Malignancy Medical History: Reports: None GI Medical History: Denies: Cirrhosis, Crohn's Disease, Gastroesophageal Reflux Disease, Hepatitis, Ulcerative Colitis Musculoskeltal Medical History: Reports: Gout Denies: Arthritis Skin Medical History: Denies: Eczema, Psoriasis Psychiatric Medical History: Reports: Alcohol Dependency, Tobacco Dependency Denies: Depression, Substance Abuse Traumatic Medical History: Reports: None Hematology: Denies: Anemia, Bleeding Tendencies Infectious Medical History: Reports: None Past Surgical History Past Surgical History: Reports: Cardiac Catheterization, Coronary Stent - X4, Herniorrhaphy - Bilateral inguinal herniorrhaphies, Tonsillectomy, Other - Facial tumor excision Social History Information Source: Patient Lives with: Spouse/Significant other Smoking Status: Former Smoker Electronic Cigarette use?: No Frequency of Alcohol Use: None - Quit drinking several years ago, "I was a drunk" Hx Recreational Drug Use: No Drugs: None Hx Prescription Drug Abuse: No - Advance Directive Resuscitation Status: Full Code Surrogate healthcare decision maker:: Lilia Maldonado Family History Family History: CAD, Hypertension. denies: DM, Malignancy Parental Family History Reviewed: Yes Children Family History Reviewed: No Sibling(s) Family History Reviewed.: Yes Medication/Allergy Home Medications: Acetaminophen [Tylenol] 650 mg PO Q6HP PRN 07/25/19 Albuterol Sulfate [Proair Digihaler] 2 puff IH Q8HP PRN 07/25/19 Allopurinol [Zyloprim 300 mg Tablet] 300 mg PO BID 07/25/19 Amlodipine Besylate [Norvasc 10 mg Tablet] 10 mg PO DAILY 07/25/19 Aspirin [Ecotrin 81 mg EC Tablet] 81 mg PO DAILY 07/25/19 Brimonidine Tartrate [Alphagan 0.2% Oph Soln 5 ml] 1 drop OU BID 07/25/19 Budesonide/Formoterol Fumarate [Symbicort HFA 160-4.5 mcg Inhaler 6 gm] 2 puff IH Q12 07/25/19 Calcium Carbonate [Calcium] 500 mg PO DAILYP PRN 07/25/19 Clopidogrel Bisulfate [Plavix 75 mg Tablet] 75 mg PO DAILY 07/25/19 Furosemide [Lasix 40 mg Tablet] 40 mg PO DAILY 07/25/19 Latanoprost/Pf [Latanoprost 0.005% Eye Drop] 1 drop OU QHS 07/25/19 Levothyroxine Sodium [Synthroid 0.05 mg Tablet] 50 mcg PO DAILY 07/25/19 Losartan Potassium [Cozaar] 100 mg PO AC 07/25/19 Metoprolol Tartrate [Lopressor] 50 mg PO BID 07/25/19 Pantoprazole Sodium [Protonix [address] Tablet] 40 mg PO DAILY 07/25/19 Simvastatin 40 mg PO QHS 07/25/19 Sodium Chloride [Saline Nasal [place]] 1 spray NS DAILYP PRN 07/25/19 Timolol [Betimol] 1 drop OU BID 07/25/19 Tiotropium Decherd [Spiriva Handihaler 5 Cap/Kit (18 Mcg/Cap)] 18 mcg IH DAILY 07/25/19 Acetaminophen [Tylenol 325 mg Tablet] 650 mg PO Q4HP PRN tablet 07/27/19 Albuterol Sulfate [Ventolin 0.083% Neb 2.5 mg/3 mL Ampul] 2.5 mg NEB RTQ2HP PRN vial.neb 07/27/19 Azithromycin 250 mg PO DAILY #4 tablet 07/27/19 Docusate Sodium [Colace 100 mg Capsule] 100 mg PO BID capsule 07/27/19 Famotidine [Pepcid 20 mg Tablet] 20 mg PO Q12 tablet 07/27/19 Guaifenesin [Robitussin Syrup 200 mg/10 ml Ud Cup] 200 mg PO Q4HP PRN udc 07/27/19 Ipratropium/Albuterol Sulfate [Duoneb 3 ml Ampul] 3 ml NEB [id number] vial.neb 07/27/19 Nicotine [Nicoderm 21 mg/24 Hr Transderm Patch] 1 each TD DAILYP PRN patch.td24 07/27/19 Prednisone [Deltasone 20 mg Tablet] 40 mg PO DAILY #10 tablet 07/27/19 Allergies/Adverse Reactions: No Known Allergies Allergy (Unverified 03/14/18 16:01) Review of Systems Constitutional: ABSENT: chills, fever(s) Eyes: ABSENT: visual disturbances, other - Eye pain Ears: ABSENT: hearing changes, other - Ear pain Nose, Mouth, and Throat: ABSENT: headache(s), sore throat Cardiovascular: PRESENT: as per HPI, dyspnea on exertion, edema - Bipedal edema. ABSENT: chest pain, palpitations Respiratory: PRESENT: as per HPI, dyspnea. ABSENT: cough Gastrointestinal: ABSENT: abdominal pain, constipation, diarrhea, nausea, vomiting Musculoskeletal: ABSENT: back pain, joint swelling Integumentary: ABSENT: pruritus, rash Neurological: ABSENT: confusion, convulsions, focal weakness, memory loss, syncope Psychiatric: ABSENT: anxiety, depression Endocrine: ABSENT: cold intolerance, heat intolerance, polyuria Hematologic/Lymphatic: ABSENT: easy bleeding, easy bruising Allergic/Immunologic: ABSENT: seasonal rhinorrhea Physical Exam Vital Signs: Temp Pulse Resp BP Pulse Ox 97.9 F 18 132/61 H 95 10/04/19 02:33 10/04/19 03:01 10/04/19 03:00 10/04/19 03:01 Intake & Output 10/02/19 10/03/19 10/04/19 23:59 23:59 23:59 Weight 101.7 kg General appearance: PRESENT: no acute distress, cooperative, other - On BiPAP at the time of exam Head exam: PRESENT: atraumatic, normocephalic Eye exam: ABSENT: conjunctival injection, scleral icterus Ear exam: PRESENT: normal external ear exam. ABSENT: bleeding, drainage Mouth exam: PRESENT: dry mucosa, neck supple Neck exam: ABSENT: thyromegaly, tracheal deviation Respiratory exam: PRESENT: decreased breath sounds - Mildly decreased breath sounds noted throughout all castro, prolonged expiratory phas - Moderately prolonged expiratory phase noted throughout all castro, symmetrical, tachypnea, wheezes - Moderate expiratory wheezes noted throughout all castro Cardiovascular exam: PRESENT: RRR. ABSENT: clicks, gallop, rubs Pulses: PRESENT: normal radial pulses, normal dorsalis pedis pul Vascular exam: PRESENT: normal capillary refill. ABSENT: pallor GI/Abdominal exam: PRESENT: normal bowel sounds, soft. ABSENT: tenderness Rectal exam: PRESENT: deferred Extremities exam: PRESENT: pedal edema - 1+ bipedal edema with venous stasis changes bilaterally. ABSENT: joint swelling Musculoskeletal exam: ABSENT: deformity, dislocation Neurological exam: PRESENT: alert, oriented to person, oriented to place, oriented to time, oriented to situation, CN II-XII grossly intact. ABSENT: motor sensory deficit Psychiatric exam: PRESENT: appropriate affect, normal mood Skin exam: PRESENT: dry, intact, warm. ABSENT: jaundice, rash, urticaria Results Laboratory Results: 10/04/19 03:05 10/04/19 03:05 10/04/19 10/04/19 10/04/19 02:37 02:37 03:05 WBC 10.0 RBC 4.48 Hgb 13.1 L Hct 40.5 MCV 91 MCH 29.2 MCHC 32.3 RDW 21.8 H Plt Count 119 L Seg Neutrophils % 83.8 H Carbonic Acid 1.31 HCO3/H2CO3 Ratio 22:1 ABG pH 7.45 ABG pCO2 43.5 ABG pO2 71.8 L ABG HCO3 29.4 H ABG O2 Saturation 95.0 ABG Base Excess 4.7 FiO2 40% Sodium Potassium Chloride Carbon Dioxide Anion Gap BUN Creatinine Est GFR ( Amer) Glucose Lactic Acid 2.2 H Calcium Total Bilirubin AST Alkaline Phosphatase Total Protein Albumin 10/04/19 03:05 WBC RBC Hgb Hct MCV MCH MCHC RDW Plt Count Seg Neutrophils % Carbonic Acid HCO3/H2CO3 Ratio ABG pH ABG pCO2 ABG pO2 ABG HCO3 ABG O2 Saturation ABG Base Excess FiO2 Sodium 136.3 L Potassium 3.7 Chloride 97 L Carbon Dioxide 36 H Anion Gap 3 L BUN 19 Creatinine 0.76 Est GFR ( Amer) > 60 Glucose 163 H Lactic Acid Calcium 8.7 Total Bilirubin 0.5 AST 31 Alkaline Phosphatase 75 Total Protein 6.4 Albumin 3.4 L 10/04/19 03:05 Troponin I 0.018 NT-Pro-B Natriuret Pep 251 Assessment and Plan - Diagnosis (1) Acute exacerbation of chronic obstructive pulmonary disease Is this a current diagnosis for this admission?: Yes (2) Acute and chronic respiratory failure with hypoxia Is this a current diagnosis for this admission?: Yes (3) Coronary artery disease Qualifiers: Coronary Disease-Associated Artery/Lesion type: [place] artery [place] vs. transplanted heart: [place] heart Associated angina: without angina Qualified Code(s): I25.10 - Atherosclerotic heart disease of [place] coronary artery without angina pectoris Is this a current diagnosis for this admission?: Yes (4) Hypertension Qualifiers: Hypertension type: essential hypertension Qualified Code(s): I10 - [place] tial (primary) hypertension Is this a current diagnosis for this admission?: Yes (5) Hyperlipidemia Qualifiers: Hyperlipidemia type: unspecified Qualified Code(s): E78.5 - Hyperlipidemia, unspecified Is this a current diagnosis for this admission?: Yes - Plan Summary Summary: Patient is admitted to the medical floor he will receive routine symptomatic and supportive cares. He will be treated with an aggressive pulmonary toilet utilizing nebulized Xopenex, Atrovent and Pulmicort. He will be treated with supplemental oxygen utilizing noninvasive airway pressure devices such as BiPAP or CPAP in order to maintain an adequate oxygen saturation. He will receive Solu-Medrol 40 mg IV every 6 hours x3 doses to complete his initial burst dosing. He will use Ativan 1 mg IV every 4 hours as needed for anxiety or restlessness. His usual home medications will be initiated as appropriate when his med list has been verified and reconciled. - Time Time Spent with patient: 15-24 minutes Medications reviewed and adjusted accordingly: Yes Anticipated discharge: SNF - Inpatient Certification Based on my medical assessment, after consideration of the patient's comorbidities, presenting symptoms, or acuity I expect that the services needed warrant INPATIENT care.: Yes I certify that my determination is in accordance with my understanding of Medicare's requirements for reasonable and necessary INPATIENT services [42 CFR 412.3e].: Yes Medical Necessity: Need for Nebulizer Therapy and Monitoring of Response, Risk of Complication if Not Cared For in Hospital, Other - Need for BiPAP to support adequate oxygen saturation
[2019-10-04] MEDS: METHYLPREDNISOLONE INJ 40 MG/1 ML SDV IV SCH ×3 (06:58→17:15)
[2019-10-04] MEDS: HEPARIN SOD (PORCINE) 5,000 UNIT/ML 1 ML VIAL SUBCUT SCH ×3 (06:59→21:18)
[2019-10-04] MEDS ORDERED: LEVALBUTEROL HCL NEB 1.25 MG/3 ML AMPUL NEB SCH (08:00)
[2019-10-04] MEDS ORDERED: IPRATROPIUM BROMIDE 0.02% NEB 0.5 MG/2.5 ML AMPUL NEB SCH (08:00)
[2019-10-04] MEDS: BUDESONIDE NEB 0.5 MG/2 ML AMPUL NEB SCH ×2 (08:06→19:48)
[2019-10-04] MEDS ORDERED: ALBUTEROL SULFATE HFA (90 MCG/PUFF) 8 GM MDI IH PRN ×2 (08:42→17:30)
[2019-10-04] MEDS: PANTOPRAZOLE SODIUM 40 MG TABLET.DR PO SCH (10:45)
[2019-10-04] MEDS: FUROSEMIDE 40 MG TABLET PO SCH (10:46)
[2019-10-04] MEDS: METOPROLOL TARTRATE 50 MG TABLET PO SCH ×2 (10:46→17:15)
[2019-10-04] MEDS: AMLODIPINE BESYLATE 10 MG TABLET PO SCH (10:46)
[2019-10-04] MEDS: CLOPIDOGREL BISULFATE 75 MG TABLET PO SCH (10:46)
[2019-10-04] MEDS: ASPIRIN 81 MG TABLET, ENT COATED PO SCH (10:46)
[2019-10-04] MEDS: DOCUSATE SODIUM 100 MG CAPSULE PO SCH ×2 (10:46→17:15)
[2019-10-04] MEDS: BRIMONIDINE TARTRATE 0.2% OPH SOLN 5 ML OU SCH ×2 (10:47→17:16)
--- NOTE | 2019-10-04 10:49 | Progress Note ---
Provider Note Provider Note: Patient admitted late this morning by Dr. White. Patient seen and examined by me Continue current treatment plan. Gradually improving. We will continue to follow
--- NOTE | 2019-10-04 10:59 | EKG REPORT ---
SEVERITY:- ABNORMAL ECG - SINUS RHYTHM LVH WITH SECONDARY REPOLARIZATION ABNORMALITY : Confirmed by: Carol Ann Elizondo 04-Oct-2019 10:58:48
[2019-10-04] MEDS: ALLOPURINOL 300 MG TABLET PO SCH ×2 (11:01→17:15)
[2019-10-04] MEDS: LEVOTHYROXINE SODIUM 0.05 MG TABLET PO SCH (11:02)
[2019-10-04] MEDS ORDERED: IPRATROPIUM/ALBUTEROL 0.5-2.5 MG/3 ML AMPUL NEB SCH (14:00)
[2019-10-04] MEDS: IPRATROPIUM/ALBUTEROL 0.5-2.5 MG/3 ML AMPUL NEB SCH ×2 (14:14→19:48)
[2019-10-04] MEDS: LOSARTAN POTASSIUM 25 MG TABLET PO SCH (17:18)
[2019-10-04] MEDS: SIMVASTATIN 40 MG TABLET PO SCH (21:21)
[2019-10-05] MEDS: HEPARIN SOD (PORCINE) 5,000 UNIT/ML 1 ML VIAL SUBCUT SCH ×3 (05:18→21:15)
[2019-10-05 05:47] LABS: HEMATOCRIT 35.9 % (37.9-51.0); HEMOGLOBIN 11.7 g/dL (13.5-17.0); MEAN CORPUSCULAR HEMOGLOBIN 29.1 pg (27.0-33.4); MEAN CORPUSCULAR HGB CONC 32.6 g/dL (32.0-36.0); MEAN CORPUSCULAR VOLUME 89 fl (80-97); PLATELET COUNT 110 10^3/uL (150-450); RED BLOOD COUNT 4.02 10^6/uL (4.35-5.55); RED CELL DISTRIBUTION WIDTH 21.5 % (11.5-14.0); WHITE BLOOD COUNT 12.3 10^3/uL (4.0-10.5)
[2019-10-05 06:18] LABS: ANION GAP 5 (5-19); BLOOD UREA NITROGEN 24 mg/dL (7-20); CALCIUM 8.8 mg/dL (8.4-10.2); CARBON DIOXIDE 32 mmol/L (22-30); CHLORIDE 96 mmol/L (98-107); GLUCOSE 159 mg/dL (75-110); POTASSIUM 4.1 mmol/L (3.6-5.0)
[2019-10-05] MEDS: IPRATROPIUM/ALBUTEROL 0.5-2.5 MG/3 ML AMPUL NEB SCH ×3 (07:48→20:15)
[2019-10-05] MEDS: BUDESONIDE NEB 0.5 MG/2 ML AMPUL NEB SCH ×2 (07:48→20:15)
[2019-10-05] MEDS ORDERED: LOSARTAN POTASSIUM 50 MG TABLET PO SCH (08:00)
[2019-10-05] MEDS: LOSARTAN POTASSIUM 50 MG TABLET PO SCH (08:07)
[2019-10-05] MEDS: DOCUSATE SODIUM 100 MG CAPSULE PO SCH ×2 (09:35→18:06)
[2019-10-05] MEDS: CEFTRIAXONE 2 GM/D5W RTU 2 GM/50 ML RTUPB IV SCH (09:40)
[2019-10-05] MEDS: FUROSEMIDE 40 MG TABLET PO SCH (09:41)
[2019-10-05] MEDS: LEVOTHYROXINE SODIUM 0.05 MG TABLET PO SCH (09:41)
[2019-10-05] MEDS: CLOPIDOGREL BISULFATE 75 MG TABLET PO SCH (09:41)
[2019-10-05] MEDS: ASPIRIN 81 MG TABLET, ENT COATED PO SCH (09:41)
[2019-10-05] MEDS: AMLODIPINE BESYLATE 10 MG TABLET PO SCH (09:41)
[2019-10-05] MEDS: METOPROLOL TARTRATE 50 MG TABLET PO SCH ×2 (09:41→18:05)
[2019-10-05] MEDS: BRIMONIDINE TARTRATE 0.2% OPH SOLN 5 ML OU SCH ×2 (09:41→18:06)
[2019-10-05] MEDS: ALLOPURINOL 300 MG TABLET PO SCH ×2 (09:41→18:05)
[2019-10-05] MEDS: PANTOPRAZOLE SODIUM 40 MG TABLET.DR PO SCH (09:41)
[2019-10-05] MEDS ORDERED: ONDANSETRON HCL INJ/PF 4 MG/2 ML SDV IV PRN (11:00)
--- NOTE | 2019-10-05 14:09 | PDOC PROGRESS REPORT ---
Subjective Progress Note for:: 10/05/19 Subjective:: Patient's breathing is very slow to improve though he does note his breathing is less labored today. He continues to have shortness of breath and [place] with some mildly productive cough. He denies fevers chills nausea vomiting diarrhea abdominal pain. He would like a physical therapy evaluation Reason For Visit: ACUTE EXACERBATION OF COPD, ACUTE ON CHRONIC Physical Exam Vital Signs: Temp Pulse Resp BP Pulse Ox 97.3 F 80 18 149/61 H 100 10/05/19 07:56 10/05/19 07:56 10/05/19 07:56 10/05/19 07:56 10/05/19 07:56 Intake & Output 10/04/19 10/05/19 10/06/19 06:59 06:59 06:59 Intake Total 1230 50 Output Total 300 1730 Balance -300 -500 50 Weight 99.6 kg 98 kg General appearance: PRESENT: no acute distress, well-developed, well-nourished Head exam: PRESENT: atraumatic, normocephalic Eye exam: PRESENT: conjunctiva pink Mouth exam: PRESENT: moist Respiratory exam: PRESENT: unlabored, wheezes. ABSENT: accessory muscle use, crackles, rales, rhonchi Cardiovascular exam: PRESENT: RRR. ABSENT: diastolic murmur, rubs, systolic murmur GI/Abdominal exam: PRESENT: normal bowel sounds, soft. ABSENT: distended, guarding, mass, organolmegaly, rebound, tenderness Rectal exam: PRESENT: deferred Neurological exam: PRESENT: alert, awake, oriented to person, oriented to place, oriented to time, oriented to situation Psychiatric exam: PRESENT: appropriate affect, normal mood Skin exam: PRESENT: dry, intact, warm Results Laboratory Results: 10/05/19 05:02 10/05/19 05:02 10/05/19 10/05/19 05:02 05:02 WBC 12.3 H RBC 4.02 L Hgb 11.7 L Hct 35.9 L MCV 89 MCH 29.1 MCHC 32.6 RDW 21.5 H Plt Count 110 L Sodium 132.8 L Potassium 4.1 Chloride 96 L Carbon Dioxide 32 H Anion Gap 5 BUN 24 H Creatinine 0.65 Est GFR ( Amer) > 60 Glucose 159 H Calcium 8.8 Magnesium 2.2 10/04/19 03:05 Blood Blood Culture (PCR) - Final Streptococcus Species 10/04/19 10/04/19 10/04/19 03:05 08:49 14:20 Troponin I 0.018 0.032 0.021 NT-Pro-B Natriuret Pep 251 10/04/19 20:54 Troponin I 0.017 NT-Pro-B Natriuret Pep Assessment and Plan - Diagnosis (1) Acute exacerbation of chronic obstructive pulmonary disease Is this a current diagnosis for this admission?: Yes Plan: With acute hypoxemic respiratory failure Supplemental oxygen to maintain saturation 89 to 92% Bronchial hygiene -Nebulizers as needed Inhalers Steroids Antibiotics (2) Acute and chronic respiratory failure with hypoxia Is this a current diagnosis for this admission?: Yes Plan: Due to COPD exacerbation as above Supplement oxygen as needed Treat underlying cause (3) COPD (chronic obstructive pulmonary disease) with acute bronchitis Is this a current diagnosis for this admission?: Yes (4) Coronary artery disease Qualifiers: Coronary Disease-Associated Artery/Lesion type: [place] artery [place] vs. transplanted heart: [place] heart Associated angina: without angina Qualified Code(s): I25.10 - Atherosclerotic heart disease of [place] coronary artery wi thout angina pectoris Is this a current diagnosis for this admission?: Yes Plan: Home medications (5) Hyperlipidemia Qualifiers: Hyperlipidemia type: unspecified Qualified Code(s): E78.5 - Hyperlipidemia, unspecified Is this a current diagnosis for this admission?: Yes Plan: Home medications (6) Hypertension Qualifiers: Hypertension type: essential hypertension Qualified Code(s): I10 - Essential (primary) hypertension Is this a current diagnosis for this admission?: Yes (7) Positive blood culture Is this a current diagnosis for this admission?: Yes Plan: 1/ bottles growing streptococci Started on ceftriaxone overnight 10/03 Follow full culture results to completion - Plan Summary Summary: Patient is admitted to the medical floor he will receive routine symptomatic and supportive cares. He will be treated with an aggressive pulmonary toilet utilizing nebulized Xopenex, Atrovent and Pulmicort. He will be treated with supplemental oxygen utilizing noninvasive airway pressure devices such as BiPAP or CPAP in order to maintain an adequate oxygen saturation. He will receive Solu-Medrol 40 mg IV every 6 hours x3 doses to complete his initial burst dosing. He will use Ativan 1 mg IV every 4 hours as needed for anxiety or restlessness. His usual home medications will be initiated as appropriate when his med list has been verified and reconciled. - Time Time Spent with patient: 25-34 minutes Medications reviewed and adjusted accordingly: Yes - Inpatient Certification Medical Necessity: Significant Comorbidiites Make Outpatient Treatment Too Risky, Need Close Monitoring Due to Risk of Patient Decompensation, Risk of Complication if Not Cared For in Hospital
[2019-10-05 15:37] LABS: APPEARANCE,URINE CLEAR; BILIRUBIN,URINE NEGATIVE (NEGATIVE); COLOR,URINE STRAW; GLUCOSE, URINE NEGATIVE (NEGATIVE); KETONES,URINE NEGATIVE (NEGATIVE); PROTEIN,URINE NEGATIVE (NEGATIVE); URINE SPECIFIC GRAVITY 1.005; UROBILINOGEN,URINE NEGATIVE mg/dL (<2.0)
[2019-10-05] MEDS: SIMVASTATIN 40 MG TABLET PO SCH (21:12)
[2019-10-06] MEDS: LEVOTHYROXINE SODIUM 0.05 MG TABLET PO SCH (05:59)
[2019-10-06] MEDS: HEPARIN SOD (PORCINE) 5,000 UNIT/ML 1 ML VIAL SUBCUT SCH ×3 (05:59→21:46)
[2019-10-06] MEDS: PANTOPRAZOLE SODIUM 40 MG TABLET.DR PO SCH (05:59)
[2019-10-06 06:24] LABS: HEMATOCRIT 36.3 % (37.9-51.0); HEMOGLOBIN 11.8 g/dL (13.5-17.0); MEAN CORPUSCULAR HEMOGLOBIN 28.9 pg (27.0-33.4); MEAN CORPUSCULAR HGB CONC 32.5 g/dL (32.0-36.0); MEAN CORPUSCULAR VOLUME 89 fl (80-97); PLATELET COUNT 137 10^3/uL (150-450); RED BLOOD COUNT 4.07 10^6/uL (4.35-5.55); RED CELL DISTRIBUTION WIDTH 21.3 % (11.5-14.0); WHITE BLOOD COUNT 10.8 10^3/uL (4.0-10.5)
[2019-10-06] MEDS: IPRATROPIUM/ALBUTEROL 0.5-2.5 MG/3 ML AMPUL NEB SCH ×3 (07:46→20:06)
[2019-10-06] MEDS: BUDESONIDE NEB 0.5 MG/2 ML AMPUL NEB SCH ×2 (07:46→20:06)
[2019-10-06] MEDS: CEFTRIAXONE 2 GM/D5W RTU 2 GM/50 ML RTUPB IV SCH (09:20)
[2019-10-06] MEDS: FUROSEMIDE 40 MG TABLET PO SCH (09:21)
[2019-10-06] MEDS: AMLODIPINE BESYLATE 10 MG TABLET PO SCH (09:21)
[2019-10-06] MEDS: DOCUSATE SODIUM 100 MG CAPSULE PO SCH ×2 (09:21→17:13)
[2019-10-06] MEDS: BRIMONIDINE TARTRATE 0.2% OPH SOLN 5 ML OU SCH ×2 (09:21→17:15)
[2019-10-06] MEDS: METOPROLOL TARTRATE 50 MG TABLET PO SCH ×2 (09:21→17:15)
[2019-10-06] MEDS: LOSARTAN POTASSIUM 50 MG TABLET PO SCH (09:21)
[2019-10-06] MEDS: ASPIRIN 81 MG TABLET, ENT COATED PO SCH (09:21)
[2019-10-06] MEDS: CLOPIDOGREL BISULFATE 75 MG TABLET PO SCH (09:21)
[2019-10-06] MEDS: ALLOPURINOL 300 MG TABLET PO SCH ×2 (09:22→17:16)
--- NOTE | 2019-10-06 16:13 | XCELERA REPORT ---
[address] [address] Transthoracic Echocardiogram Report Name: ENRIQUE JONES Age: 79 yrs Gender: Male : 1940 Patient Status: Inpatient Patient Location: [address] [place] [address] Study Date: 10/06/2019 09:16 AM Height: 72 in Weight: 218 lb BSA: 2.2 m2 Procedure: A two-dimensional transthoracic echocardiogram with color flow and Doppler was performed. Study Quality: Poor. Reason For Study: possible endocarditis History: ENDOCARDITIS. Ordering Physician: ELIAS VALERA Performed By: Nia Cerda Interpretation Summary No defenite evidence of Endocarditis.Recommend JIMMY if clinical suspicion is high. The left ventricle is normal in size. There is moderate concentric left ventricular hypertrophy. LV EF is 60% to 65% Left ventricular systolic function is normal. Doppler measurements suggest normal left ventricular diastolic function The left ventricular wall motion is normal. There is no thrombus. No ASD VSD or PFO seen. The right ventricle is normal in size and function. The right atrium is normal. The left atrial size is normal. There is no evidence of mitral valve prolapse. There is no vegetation seen on the mitral valve. There is no mitral valve stenosis. There is a trace to mild amount of mitral regurgitation There is no aortic valvular vegetation. There is aortic sclerosis without aortic stenosis. There is no LVOT obstruction. There is a mild amount of aortic regurgitation There is no tricuspid valve vegetation. There is no tricuspid stenosis. There is a trace to mild amount of tricuspid regurgitation RVSP is 31 to 36 mm of Hg , with RA mean of 5 to 10. There is no vegetation on the pulmonic valve. There is no pulmonic valvular stenosis. There is a trace amount of pulmonic regurgitation The aortic root is normal size. The inferior vena cava appeared normal and decreased > 50% with respiration (RAP 5-10 mmHg) There is no pericardial effusion. No defenite evidence of Endocarditis.Recommend JIMMY if clinical suspicion is high. MMode/2D Measurements & Calculations RVDd: 2.7 cm LVIDd: 4.4 cm FS: 27.4 % Ao root diam: 3.6 cm IVSd: 1.9 cm LVIDs: 3.2 cm EDV(Teich): 86.0 ml Ao root area: 10.2 cm2 LVPWd: 1.2 cm ESV(Teich): 39.9 ml EF(Teich): 53.6 % Doppler Measurements & Calculations MV E max clifford: MV dec slope: Ao V2 max: AI max clifford: 87.0 cm/sec 532.2 cm/sec2 170.9 cm/sec 403.2 cm/sec MV A max clifford: MV dec time: Ao max PG: AI max P.1 mmHg 72.3 cm/sec 0.16 sec 11.7 mmHg AI dec slope: MV E/A: 1.2 166.6 cm/sec2 AI P1/2t: 709.1 msec LV V1 max PG: PA V2 max: PI end-d clifford: TR max clifford: 6.0 mmHg 85.7 cm/sec 112.9 cm/sec 256.6 cm/sec LV V1 max: PA max P.9 mmHg TR max P.3 mmHg 122.2 cm/sec Left Ventricle The left ventricle is normal in size. There is moderate concentric left ventricular hypertrophy. LV EF is 60% to 65%. Left ventricular systolic function is normal. Doppler measurements suggest normal left ventricular diastolic function. The left ventricular wall motion is normal. There is no thrombus. No ASD VSD or PFO seen. Right Ventricle The right ventricle is normal in size and function. Atria The right atrium is normal. The left atrial size is normal. Mitral Valve There is no evidence of mitral valve prolapse. There is no vegetation seen on the mitral valve. There is no mitral valve stenosis. There is a trace to mild amount of mitral regurgitation. Aortic Valve There is no aortic valvular vegetation. There is aortic sclerosis without aortic stenosis. There is no LVOT obstruction. There is a mild amount of aortic regurgitation. Tricuspid Valve There is no tricuspid valve vegetation. There is no tricuspid stenosis. There is a trace to mild amount of tricuspid regurgitation. RVSP is 31 to 36 mm of Hg , with RA mean of 5 to 10. Pulmonic Valve There is no vegetation on the pulmonic valve. There is no pulmonic valvular stenosis. There is a trace amount of pulmonic regurgitation. Great Vessels The aortic root is normal size. The inferior vena cava appeared normal and decreased > 50% with respiration (RAP 5-10 mmHg). Effusions There is no pericardial effusion. : ELIAS VALERA, Ericka
--- NOTE | 2019-10-06 16:28 | PDOC PROGRESS REPORT ---
Subjective Subjective:: Patient's breathing is a bit better but not back to baseline, per patient about 50% to baseline. Blood culture growing 1/2 bottles strep mitis/paralysis concerning for possible dental infection versus aspiration. Patient states he has been seen at [facility] and was told that he does have dysphagia and aspiration seen on a barium swallow study. Speech therapy consulted here today. He does have rotten/possibly infected-looking teeth but states he is planning to follow-up with a oral surgeon in [place]. He denies any dental pain currently but has had some recently. Echocardiogram ordered to rule out i nfective endocarditis. No other new complaints besides chronic shortness of breath/NEWBY. Reason For Visit: ACUTE EXACERBATION OF COPD, ACUTE ON CHRONIC Physical Exam Vital Signs: Temp Pulse Resp BP Pulse Ox 97.7 F 80 18 105/52 L 90 L 10/06/19 12:00 10/06/19 14:14 10/06/19 14:14 10/06/19 12:00 10/06/19 14:14 Intake & Output 10/05/19 10/06/19 10/07/19 06:59 06:59 06:59 Intake Total 1230 2420 1392 Output Total 1730 1550 925 Balance -500 870 467 Weight 98 kg 99.1 kg General appearance: PRESENT: no acute distress, well-developed, well-nourished Head exam: PRESENT: atraumatic, normocephalic Eye exam: PRESENT: conjunctiva pink Mouth exam: PRESENT: moist Respiratory exam: PRESENT: crackles, unlabored, wheezes. ABSENT: accessory muscle use, tachypnea Cardiovascular exam: PRESENT: RRR. ABSENT: diastolic murmur, rubs, systolic murmur GI/Abdominal exam: PRESENT: normal bowel sounds, soft. ABSENT: distended, guarding, mass, organolmegaly, rebound, tenderness Extremities exam: PRESENT: pedal edema Neurological exam: PRESENT: alert, altered, awake Psychiatric exam: PRESENT: appropriate affect, normal mood Skin exam: PRESENT: dry, intact, warm Results Laboratory Results: 10/06/19 06:07 10/05/19 05:02 10/06/19 06:07 WBC 10.8 H RBC 4.07 L Hgb 11.8 L Hct 36.3 L MCV 89 MCH 28.9 MCHC 32.5 RDW 21.3 H Plt Count 137 L 10/04/19 03:05 Blood Blood Culture (PCR) - Final Streptococcus Species 10/04/19 03:05 Blood Blood Culture - Final Strep Mitis/Oralis Grp 10/04/19 10/04/19 10/04/19 03:05 08:49 14:20 Troponin I 0.018 0.032 0.021 NT-Pro-B Natriuret Pep 251 10/04/19 20:54 Troponin I 0.017 NT-Pro-B Natriuret Pep Assessment and Plan - Diagnosis (1) Acute exacerbation of chronic obstructive pulmonary disease Is this a current diagnosis for this admission?: Yes Plan: With acute hypoxemic respiratory failure Supplemental oxygen to maintain saturation 89 to 92% Bronchial hygiene -Nebulizers as needed Inhalers Steroids Antibiotics Possible he is aspirating and causing recurrent pneumonitis/pneumonia; speech therapy consulted Per patient, he had a positive barium swallow study at [facility] which showed aspiration/dysphagia (2) Acute and chronic respiratory failure with hypoxia Is this a current diagnosis for this admission?: Yes Plan: Due to COPD exacerbation as above Supplement oxygen as needed Treat underlying cause Treatment as above (3) COPD (chronic obstructive pulmonary disease) with acute bronchitis Is this a current diagnosis for this admission?: Yes (4) Coronary artery disease Qualifiers: Coronary Disease-Associated Artery/Lesion type: [place] artery [place] vs. transplanted heart: [place] heart Associated angina: without angina Qualified Code(s): I25.10 - Atherosclerotic heart disease of [place] coronary artery without angina pectoris Is this a current diagnosis for this admission?: Yes (5) Hyperlipidemia Qualifiers: Hyperlipidemia type: unspecified Qualified Code(s): E78.5 - Hyperlipidemia, unspecified Is this a current diagnosis for this admission?: Yes (6) Hypertension Qualifiers: Hypertension type: essential hypertension Qualified Code(s): I10 - Essential (primary) hypertension Is this a current diagnosis for this admission?: Yes (7) Positive blood culture Is this a current diagnosis for this admission?: Yes - Plan Summary Summary: Patient is admitted to the medical floor he will receive routine symptomatic and supportive cares. He will be treated with an aggressive pulmonary toilet utilizing nebulized Xopenex, Atrovent and Pulmicort. He will be treated with supplemental oxygen utilizing noninvasive airway pressure devices such as BiPAP or CPAP in order to maintain an adequate oxygen saturation. He will receive Solu-Medrol 40 mg IV every 6 hours x3 doses to complete his initial burst dosing . He will use Ativan 1 mg IV every 4 hours as needed for anxiety or restlessness. His usual home medications will be initiated as appropriate when his med list has been verified and reconciled. - Time Time Spent with patient: 25-34 minutes Medications reviewed and adjusted accordingly: Yes - Inpatient Certification Medical Necessity: Significant Comorbidiites Make Outpatient Treatment Too [place]is [place], Need Close Monitoring Due to Risk of Patient Decompensation, Need for Nebulizer Therapy and Monitoring of Response, Risk of Complication if Not Cared For in Hospital
[2019-10-06] MEDS: SIMVASTATIN 40 MG TABLET PO SCH (21:44)
[2019-10-07 05:17] LABS: HEMATOCRIT 36.9 % (37.9-51.0); MEAN CORPUSCULAR HEMOGLOBIN 29.4 pg (27.0-33.4); MEAN CORPUSCULAR HGB CONC 32.6 g/dL (32.0-36.0); MEAN CORPUSCULAR VOLUME 90 fl (80-97); PLATELET COUNT 116 10^3/uL (150-450); RED BLOOD COUNT 4.09 10^6/uL (4.35-5.55); WHITE BLOOD COUNT 8.3 10^3/uL (4.0-10.5)
[2019-10-07] MEDS: PANTOPRAZOLE SODIUM 40 MG TABLET.DR PO SCH (05:48)
[2019-10-07] MEDS: LEVOTHYROXINE SODIUM 0.05 MG TABLET PO SCH (05:48)
[2019-10-07] MEDS: HEPARIN SOD (PORCINE) 5,000 UNIT/ML 1 ML VIAL SUBCUT SCH ×3 (05:50→22:11)
[2019-10-07] MEDS: LOSARTAN POTASSIUM 50 MG TABLET PO SCH (08:45)
[2019-10-07] MEDS: IPRATROPIUM/ALBUTEROL 0.5-2.5 MG/3 ML AMPUL NEB SCH ×3 (08:51→20:09)
[2019-10-07] MEDS: BUDESONIDE NEB 0.5 MG/2 ML AMPUL NEB SCH ×2 (08:51→20:08)
[2019-10-07] MEDS: DOCUSATE SODIUM 100 MG CAPSULE PO SCH ×2 (09:14→17:36)
[2019-10-07] MEDS: AMLODIPINE BESYLATE 10 MG TABLET PO SCH (09:20)
[2019-10-07] MEDS: ASPIRIN 81 MG TABLET, ENT COATED PO SCH (09:20)
[2019-10-07] MEDS: CEFTRIAXONE 2 GM/D5W RTU 2 GM/50 ML RTUPB IV SCH (09:20)
[2019-10-07] MEDS: METOPROLOL TARTRATE 50 MG TABLET PO SCH ×2 (09:20→17:36)
[2019-10-07] MEDS: CLOPIDOGREL BISULFATE 75 MG TABLET PO SCH (09:20)
[2019-10-07] MEDS: FUROSEMIDE 40 MG TABLET PO SCH (09:20)
[2019-10-07] MEDS: BRIMONIDINE TARTRATE 0.2% OPH SOLN 5 ML OU SCH ×2 (09:21→17:37)
[2019-10-07] MEDS: ALLOPURINOL 300 MG TABLET PO SCH ×2 (09:21→18:03)
--- NOTE | 2019-10-07 13:45 | PDOC PROGRESS REPORT ---
Subjective Progress Note for:: 10/07/19 Subjective:: Breathing continues to improve. Per patient, speech therapy thinks he does have some dysphagia and risk of aspiration. For instance, he is been told on multiple occasions to not drink or a straw and to take extra time when he is eating. Still has some very low pitched wheezing but I suspect this may be mostly chronic. Patient is quite weak and will most likely need rehab facility at discharge, possibly home health. Echocardiogram did not show any vegetations and showed normal function. Patient has no new complaints today Reason For Visit: ACUTE EXACERBATION OF COPD, ACUTE ON CHRONIC Physical Exam Vital Signs: Temp Pulse Resp BP Pulse Ox 97.5 F 71 20 125/52 L 95 10/07/19 11:04 10/07/19 11:04 10/07/19 11:04 10/07/19 11:04 10/07/19 11:04 Intake & Output 10/06/19 10/07/19 10/08/19 06:59 06:59 06:59 Intake Total 2420 1868 410 Output Total 1550 1625 750 Balance 870 243 -340 Weight 99.1 kg 99.1 kg General appearance: PRESENT: no acute distress, well-developed, well-nourished Head exam: PRESENT: atraumatic, normocephalic Eye exam: PRESENT: conjunctiva pink Mouth exam: PRESENT: moist Respiratory exam: PRESENT: wheezes - Deep low pitched chronic wheezing. ABSENT: crackles, rales, rhonchi Cardiovascular exam: PRESENT: RRR. ABSENT: diastolic murmur, rubs, systolic murmur GI/Abdominal exam: PRESENT: normal bowel sounds, soft. ABSENT: distended, guarding, mass, organolmegaly, rebound, tenderness Neurological exam: PRESENT: alert, awake Psychiatric exam: PRESENT: appropriate affect, normal mood Skin exam: PRESENT: dry, intact, warm Results Laboratory Results: 10/07/19 04:16 10/05/19 05:02 10/07/19 04:16 WBC 8.3 RBC 4.09 L Hgb 12.0 L Hct 36.9 L MCV 90 MCH 29.4 MCHC 32.6 RDW 21.0 H Plt Count 116 L 10/04/19 10/04/19 10/04/19 03:05 08:49 14:20 Troponin I 0.018 0.032 0.021 NT-Pro-B Natriuret Pep 251 10/04/19 20:54 Troponin I 0.017 NT-Pro-B Natriuret Pep Assessment and Plan - Diagnosis (1) Acute exacerbation of chronic obstructive pulmonary disease Is this a current diagnosis for this admission?: Yes Plan: With acute hypoxemic respiratory failure Supplemental oxygen to maintain saturation 89 to 92% Bronchial hygiene -Nebulizers as needed Inhalers Steroids Antibiotics Possible he is aspirating and causing recurrent pneumonitis/pneumonia; speech therapy consulted Per patient, he had a positive barium swallow study at [facility] which showed aspiration/dysphagia Gradual consistent improvement, needs close follow-up outpatient with pulmonology (2) Acute and chronic respiratory failure with hypoxia Is this a current diagnosis for this admission?: Yes Plan: Due to COPD exacerbation as above Supplement oxygen as needed Treat underlying cause Treatment as above Improving (3) COPD (chronic obstructive pulmonary disease) with acute bronchitis Is this a current diagnosis for this admission?: Yes (4) Coronary artery disease Qualifiers: Coronary Disease-Associated Artery/Lesion type: [place] artery [place] vs. transplanted heart: [place] heart Associated angina: without angina Qualified Code(s): I25.10 - Atherosclerotic heart disease of [place] coronary artery without angina pectoris Is this a current diagnosis for this admission?: Yes (5) Hyperlipidemia Qualifiers: Hyperlipidemia type: unspecified Qualified Code(s): E78.5 - Hyperlipidemia, unspecified Is this a current diagnosis for this admission?: Yes (6) Hypertension Qualifiers: Hypertension type: essential hypertension Qualified Code(s): I10 - Essential (primary) hypertension Is this a current diagnosis for this admission?: Yes (7) Positive blood culture Is this a current diagnosis for this admission?: Yes Plan: 1/2 bottles growing streptococci Started on ceftriaxone overnight 10/03, changed to amoxicillin Possible dental source as patient states he has had a great deal of dental issues which he has been referred to a oral surgeon about but has not been able to secure an appointment for actual surgical planning Follow full culture results to completion Await repeat blood cultures which were drawn on 10/05 - Plan Summary Summary: Patient is admitted to the medical floor he will receive routine symptomatic and supportive cares. He will be treated with an aggressive pulmonary toilet utilizing nebulized Xopenex, Atrovent and Pulmicort. He will be treated with supplemental oxygen utilizing noninvasive airway pressure devices such as BiPAP or CPAP in order to maintain an adequate oxygen saturation. He will receive Solu-Medrol 40 mg IV every 6 hours x3 doses to complete his initial burst dosing. He will use Ativan 1 mg IV every 4 hours as needed for anxiety or restlessness. His usual home medications will be initiated as appropriate when his med list has been verified and reconciled. - Time Time Spent with patient: 25-34 minutes Medications reviewed and adjusted accordingly: Yes Anticipated discharge: SNF Within: within 48 hours - Inpatient Certification Based on my medical assessment, after consideration of the patient's comorbidities, presenting symptoms, or acuity I expect that the services needed warrant INPATIENT care.: Yes I certify that my determination is in accordance with my understanding of Medicare's requirements for reasonable and necessary INPATIENT services [42 CFR 412.3e].: Yes Medical Necessity: Significant Comorbidiites Make Outpatient Treatment Too Risky, Need Close Monitoring Due to Risk of Patient Decompensation
[2019-10-07] MEDS: SIMVASTATIN 40 MG TABLET PO SCH (22:09)
[2019-10-08] MEDS: PANTOPRAZOLE SODIUM 40 MG TABLET.DR PO SCH (05:29)
[2019-10-08] MEDS: LEVOTHYROXINE SODIUM 0.05 MG TABLET PO SCH (05:29)
[2019-10-08] MEDS: HEPARIN SOD (PORCINE) 5,000 UNIT/ML 1 ML VIAL SUBCUT SCH ×3 (05:32→21:27)
[2019-10-08] MEDS: BUDESONIDE NEB 0.5 MG/2 ML AMPUL NEB SCH ×2 (08:12→19:57)
[2019-10-08] MEDS: IPRATROPIUM/ALBUTEROL 0.5-2.5 MG/3 ML AMPUL NEB SCH ×3 (08:12→19:57)
[2019-10-08] MEDS: LOSARTAN POTASSIUM 50 MG TABLET PO SCH (08:12)
[2019-10-08] MEDS: CEFTRIAXONE 2 GM/D5W RTU 2 GM/50 ML RTUPB IV SCH (10:06)
[2019-10-08] MEDS: ASPIRIN 81 MG TABLET, ENT COATED PO SCH (10:06)
[2019-10-08] MEDS: CLOPIDOGREL BISULFATE 75 MG TABLET PO SCH (10:07)
[2019-10-08] MEDS: ALLOPURINOL 300 MG TABLET PO SCH ×2 (10:07→17:18)
[2019-10-08] MEDS: DOCUSATE SODIUM 100 MG CAPSULE PO SCH ×2 (10:07→17:17)
[2019-10-08] MEDS: FUROSEMIDE 40 MG TABLET PO SCH (10:07)
[2019-10-08] MEDS: AMLODIPINE BESYLATE 10 MG TABLET PO SCH (10:07)
[2019-10-08] MEDS: METOPROLOL TARTRATE 50 MG TABLET PO SCH ×2 (10:07→17:18)
[2019-10-08] MEDS: BRIMONIDINE TARTRATE 0.2% OPH SOLN 5 ML OU SCH ×2 (10:07→17:18)
--- NOTE | 2019-10-08 12:49 | PDOC PROGRESS REPORT ---
Subjective Progress Note for:: 10/08/19 Subjective:: Getting probably getting close to baseline now. PICC line will need to be placed and he will need home health arranged to get ceftriaxone 2 g daily for the next 4 weeks. I have consulted the oral surgeon here locally and await his call back to see if he can perform some dental extractions on my patient for source control prior to discharge. Patient needs to have a sleep study and I discussed this with him. He will call the [facility] to schedule a JIMMY and sleep study. This hospital is not performing any JIMMY per my discussion with the technicians yesterday. Otherwise patient has no new complaints. Reason For Visit: ACUTE EXACERBATION OF COPD, ACUTE ON CHRONIC Physical Exam Vital Signs: Temp Pulse Resp BP Pulse Ox 97.7 F 84 16 145/58 H 93 10/08/19 08:00 10/08/19 08:15 10/08/19 08:15 10/08/19 08:00 10/08/19 08:15 Intake & Output 10/07/19 10/08/19 10/09/19 06:59 06:59 06:59 Intake Total 1868 890 50 Output Total 1625 1750 Balance 243 -860 50 Weight 99.1 kg 99.1 kg General appearance: PRESENT: no acute distress, well-developed, well-nourished Head exam: PRESENT: atraumatic, normocephalic Eye exam: PRESENT: conjunctiva pink Mouth exam: PRESENT: moist Respiratory exam: PRESENT: wheezes - Very minimal almost inaudible low pitched wheeze which is likely chronic. ABSENT: crackles, rales, rhonchi Cardiovascular exam: PRESENT: RRR. ABSENT: diastolic murmur, rubs, systolic murmur GI/Abdominal exam: PRESENT: normal bowel sounds, soft. ABSENT: distended, guarding, mass, organolmegaly, rebound, tenderness Neurological exam: PRESENT: alert, awake, oriented to person, oriented to place, oriented to time Psychiatric exam: PRESENT: appropriate affect, normal mood Skin exam: PRESENT: dry, intact, warm Results Laboratory Results: 10/07/19 04:16 10/05/19 05:02 10/04/19 10/04/19 10/04/19 03:05 08:49 14:20 Troponin I 0.018 0.032 0.021 NT-Pro-B Natriuret Pep 251 04/05/20 20:54 Troponin I 0.017 NT-Pro-B Natriuret Pep Assessment and Plan - Diagnosis (1) Acute exacerbation of chronic obstructive pulmonary disease Is this a current diagnosis for this admission?: Yes Plan: With acute hypoxemic respiratory failure Supplemental oxygen to maintain saturation 89 to 92% Bronchial hygiene -Nebulizers as needed Inhalers Steroids Antibiotics Possible he is aspirating and causing recurrent pneumonitis/pneumonia; speech therapy consulted Per patient, he had a positive barium swallow study at [facility] which showed aspiration/dysphagia Gradual consistent improvement, needs close follow-up outpatient with pulmono logy Appears to be close to baseline or at it already (2) Bacteremia Is this a current diagnosis for this admission?: Yes Plan: Blood culture positive strep mitis/oralis 1/2 bottles, repeat blood cultures negative Ceftriaxone 2 g daily 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 TTE did not show vegetations Unable to do JIMMY due to no availability of this test here during coronavirus outbreak; patient will be contacting the [facility] to try to schedule this after discharge with them Oral surgery consulted for source control (3) Acute and chronic respiratory failure with hypoxia Is this a current diagnosis for this admission?: Yes (4) COPD (chronic obstructive pulmonary disease) with acute bronchitis Is this a current diagnosis for this admission?: Yes (5) Coronary artery disease Qualifiers: Coronary Disease-Associated Artery/Lesion type: [place] artery [place] vs. transplanted heart: [place] heart Associated angina: without angina Qualified Code(s): I25.10 - Atherosclerotic heart disease of [place] coronary artery without angina pectoris Is this a current diagnosis for this admission?: Yes (6) Hyperlipidemia Qualifiers: Hyperlipidemia type: unspecified Qualified Code(s): E78.5 - Hyperlipidemia, unspecified Is this a current diagnosis for this admission?: Yes (7) Hypertension Qualifiers: Hypertension type: essential hypertension Qualified Code(s): I10 - Essential (primary) hypertension Is this a current diagnosis for this admission?: Yes (8) Positive blood culture Is this a current diagnosis for this admission?: Yes (9) Poor dentition Is this a current diagnosis for this admission?: Yes Plan: Needs oral surgery consult, I have called them Multiple broken/rotten teeth - Plan Summary Summary: Patient is admitted to the medical floor he will receive routine symptomatic and supportive cares. He will be treated with an aggressive pulmonary toilet utilizing nebulized Xopenex, Atrovent and Pulmicort. He will be treated with supplemental oxygen utilizing noninvasive airway pressure devices such as BiPAP or CPAP in order to maintain an adequate oxygen saturation. He will receive Solu-Medrol 40 mg IV every 6 hours x3 doses to complete his initial burst dosing. He will use Ativan 1 mg IV every 4 hours as needed for anxiety or restlessness. His usual home medications will be initiated as appropriate when his med list has been verified and reconciled. - Time Time Spent with patient: 35 or more minutes Medications reviewed and adjusted accordingly: Yes - Inpatient Certification Medical Necessity: Significant Comorbidiites Make Outpatient Treatment Too Risky, Need Close Monitoring Due to Risk of Patient Decompensation, Need for IV Antibiotics, Risk of Complication if Not Cared For in Hospital
[2019-10-08] MEDS ORDERED: DEXTROSE 50%-WATER 25 GM/50 ML DISP.SYRIN IV PRN ×2 (14:41)
[2019-10-08] MEDS ORDERED: DEXTROSE 40% GEL 15 GM TUBE PO PRN ×2 (14:41)
[2019-10-08] MEDS ORDERED: GLUCAGON,HUMAN RECOMB 1 MG INJ SUBCUT PRN (14:41)
--- NOTE | 2019-10-08 15:59 | RADIOLOGY REPORT (SQ) ---
EXAM DESCRIPTION: PICC INSERTION IMAGES COMPLETED DATE/TIME: 10/08/2019 3:46 pm REASON FOR STUDY: 4 weeks iv abx COMPARISON: None. FLUOROSCOPY TIME: 57 SECONDS OF FLUOROSCOPY WAS USED. 1 images saved to PACS. TECHNIQUE: Fluoroscopic and ultrasound guided PICC placement. LIMITATIONS: None. PROCEDURE: After written consent and assessment were obtained, the patient was brought into the fluo roscopy room and placed supine on the table. Ultrasound evaluation of potential access sites were per formed. After successfully identifying a patent left basilic vein, the left arm was prepped and drape d in a sterile fashion along with the ultrasound probe. The entry site was anesthetized with 1% lidoc morgan. A 21 gauge 7 cm needle was advanced through the skin and into the basilic vein under live ultra sound guidance. An ultrasound image was saved to PACS confirming access site. A .018 guide wire was then inserted through the needle and into the venous system. The needle was then removed and an 11 b lade scalpel was used to make a 1cm skin incision. A 5 fr peel-away sheath was advanced over the wir e and into the venous system. A measurement was then made using the existing wire and live fluoroscop ic guidance. The wire was then removed and trimmed. The PICC was advanced through the peel-away sheat h and into the venous system. The peel-away sheath was removed and the catheter was adhered to the pa tients arm with a stat lock. The catheter was then aspirated and flushed and a sterile bandage was pl aced over the access site. A fluoroscopic spot image was saved to PACS confirming the catheter tip w ithin the superior vena cava. IMPRESSION: SUCCESSFUL PLACEMENT OF A 5 FR DUAL LUMEN 40 CM PICC IN THE LEFT BASILIC VEIN. COMMENT: Patient medication list reviewed: Yes- Quality ID# 130:Eligible professional attests to doc umenting in the medical record they obtained, updated, or reviewed the patient's current medications. . Quality ID 145: Final reports for procedures using fluoroscopy that document radiation exposure jac reed, or exposure time and number of fluorographic images (if radiation exposure indices are not avail able) Quality ID #76: The patient was prepped and draped using maximum sterile barrier technique including cap, mask, sterile gown, sterile gloves, a large sterile sheet, hand hygiene, and 2% Chlorhexidine fo r cutaneous antisepsis. When ultrasound is used, sterile ultrasound techniques are followed requiring sterile gel and sterile probes. TECHNICAL DOCUMENTATION: JOB ID: [id number] 2010 [employer]- All Rights Reserved rev-11/15 Reading location - IP/workstation name: [email or web address]
--- NOTE | 2019-10-08 16:11 | RADIOLOGY REPORT (SQ) ---
EXAM DESCRIPTION: CT FACIAL AREA WITHOUT IMAGES COMPLETED DATE/TIME: 10/08/2019 3:56 pm REASON FOR STUDY: dental abscess COMPARISON: None. TECHNIQUE: Noncontrasted images through the facial bones and orbits windowed for bone and soft tissu e. Additional coronal and sagittal reconstructed images reviewed. All images stored on PACS. All CT scanners at this facility use dose modulation, iterative reconstruction, and/or weight based d osing when appropriate to reduce radiation dose to as low as reasonably achievable (ALARA). [facility]: Dose Right [facility]: CareDose [facility]: Dose Right [facility]: Teradose 4D [facility]: [employer] RADIATION DOSE: CT Rad equipment meets quality standard of care and radiation dose reduction techniq ues were employed. CTDIvol: 13.2 mGy. DLP: 264 mGy-cm. mGy. LIMITATIONS: None. FINDINGS: FACIAL BONES: No fracture or bone lesion. ORBITS: Intact. No fracture. Symmetric intact globes and retroorbital soft tissues. Post cataract surgery PARANASAL SINUSES: There is an air-fluid level in the right maxillary sinus with mild right maxillary sinus mucoperiosteal thickening from chronic sinus inflammation. Right maxillary sinus outlet is pa tent on coronal image 24. Remainder of the paranasal sinuses are clear. SOFT TISSUES: No mass or edema. INFERIOR BRAIN: Limited view. No acute findings. OTHER: Advanced dental harris is present the patient's few remaining teeth. No periapical tooth root abscess of the maxilla or mandible. IMPRESSION: Right maxillary sinusitis TECHNICAL DOCUMENTATION: JOB ID: [id number] Quality ID # [id number]: Final reports with documentation of one or more dose reduction techniques (e.g., Au tomated exposure control, adjustment of the mA and/or kV according to patient size, use of iterative reconstruction technique) 2010 [employer]- All Rights Reserved Reading location - IP/workstation name: [email or web address]
[2019-10-08] MEDS: SIMVASTATIN 40 MG TABLET PO SCH (21:26)
[2019-10-09] MEDS: PANTOPRAZOLE SODIUM 40 MG TABLET.DR PO SCH (05:40)
[2019-10-09] MEDS: LEVOTHYROXINE SODIUM 0.05 MG TABLET PO SCH (05:41)
[2019-10-09] MEDS: HEPARIN SOD (PORCINE) 5,000 UNIT/ML 1 ML VIAL SUBCUT SCH ×3 (05:41→21:33)
[2019-10-09] MEDS: IPRATROPIUM/ALBUTEROL 0.5-2.5 MG/3 ML AMPUL NEB SCH ×3 (07:57→20:01)
[2019-10-09] MEDS: BUDESONIDE NEB 0.5 MG/2 ML AMPUL NEB SCH ×2 (07:57→20:01)
[2019-10-09] MEDS: DOCUSATE SODIUM 100 MG CAPSULE PO SCH ×2 (11:20→17:11)
[2019-10-09] MEDS: CLOPIDOGREL BISULFATE 75 MG TABLET PO SCH (11:38)
[2019-10-09] MEDS: FUROSEMIDE 40 MG TABLET PO SCH (11:38)
[2019-10-09] MEDS: LOSARTAN POTASSIUM 50 MG TABLET PO SCH (11:39)
[2019-10-09] MEDS: ASPIRIN 81 MG TABLET, ENT COATED PO SCH (11:40)
[2019-10-09] MEDS: METOPROLOL TARTRATE 50 MG TABLET PO SCH ×2 (11:40→17:56)
[2019-10-09] MEDS: CEFTRIAXONE 2 GM/D5W RTU 2 GM/50 ML RTUPB IV SCH (11:40)
[2019-10-09] MEDS: AMLODIPINE BESYLATE 10 MG TABLET PO SCH (11:40)
[2019-10-09] MEDS: NORMAL SALINE 10 ML SDV (SCHEDULED) IV SCH ×2 (11:41→21:40)
[2019-10-09] MEDS: FLUTICASONE NASAL SPRAY 50 MCG/SPRY 120 SPRAY/16 GM NASL SCH (11:42)
[2019-10-09] MEDS: BRIMONIDINE TARTRATE 0.2% OPH SOLN 5 ML OU SCH ×2 (11:42→17:58)
[2019-10-09] MEDS: ALLOPURINOL 300 MG TABLET PO SCH ×2 (11:42→17:56)
--- NOTE | 2019-10-09 14:19 | PDOC CONSULTATION ---
Consultation Consult Date: 10/09/19 Provider Consulted: MALLORY GARCIA Consult reason:: Patient is growing oral bacteria out of 1 of 2 blood culture bottles. Evaluate and treat any oral sources. History of Present Illness Admission Date/PCP: 10/04/19 04:[facility] History of Present Illness: ENRIQUE JONES is a 79 year old male Past Medical History Cardiac Medical History: Reports: Coronary Artery Disease, Hyperlipidema, Hypertension, Peripheral Vascular Disease Denies: Atrial Fibrillation, Congestive Heart Failure, Myocardial Infarction Pulmonary Medical History: Reports: Chronic Obstructive Pulmonary Disease (COPD), Pneumonia, Respiratory Failure - Chronic hypoxic respiratory failure Denies: Asthma EENT Medical History: Reports: Eyes - Glaucoma Denies: Cataracts, Ears - Hearing aids Neurological Medical History: Denies: Hemorrhagic CVA, Ischemic CVA, Seizures Endocrine Medical History: Reports: Hypothyroidism Denies: Diabetes Mellitus Type 1, Diabetes Mellitus Type 2, Hyperthyroidism Renal/ Medical History: Denies: Chronic Kidney Disease, Nephrolithiasis Malignancy Medical History: Reports: None GI Medical History: Denies: Cirrhosis, Crohn's Disease, Gastroesophageal Reflux Disease, Hepatitis, Ulcerative Colitis Musculoskeltal Medical History: Reports: Gout Denies: Arthritis Skin Medical History: Denies: Eczema, Psoriasis Psychiatric Medical History: Reports: Alcohol Dependency, Tobacco Dependency Denies: Depression, Substance Abuse Traumatic Medical History: Reports: None Hematology: Denies: Anemia, Bleeding Tendencies Infectious Medical History: Reports: None Past Surgical History Past Surgical History: Reports: Cardiac Catheterization, Coronary Stent - X4, Herniorrhaphy - Bilateral inguinal herniorrhaphies, Tonsillectomy, Other - Facial tumor excision Social History Lives with: Spouse/Significant other Smoking Status: Former Smoker Electronic Cigarette use?: No Frequency of Alcohol Use: None - Quit drinking several years ago, "I was a drunk" Hx Recreational Drug Use: No Drugs: None Hx Prescription Drug Abuse: No - Advance Directive Resuscitation Status: Full Code Family History Family History: CAD, Hypertension. denies: DM, Malignancy Parental Family History Reviewed: No - Unknown Children Family History Reviewed: NA Sibling(s) Family History Reviewed.: NA Medication/Allergy Home Medications: Albuterol Sulfate [Proair Digihaler] 2 puff IH Q8HP PRN 07/25/19 Allopurinol [Zyloprim 300 mg Tablet] 300 mg PO BID 07/25/19 Amlodipine Besylate [Norvasc 10 mg Tablet] 10 mg PO DAILY 07/25/19 Aspirin [Ecotrin 81 mg EC Tablet] 81 mg PO DAILY 07/25/19 Brimonidine Tartrate [Alphagan 0.2% Oph Soln 5 ml] 1 drop OU BID 07/25/19 Budesonide/Formoterol Fumarate [Symbicort HFA 160-4.5 mcg Inhaler 6 gm] 2 puff IH Q12 07/25/19 Calcium Carbonate [Calcium] 500 mg PO DAILYP PRN 07/25/19 Latanoprost/Pf [Latanoprost 0.005% Eye Drop] 1 drop OU QHS 07/25/19 Levothyroxine Sodium [Synthroid 0.05 mg Tablet] 50 mcg PO DAILY 07/25/19 Losartan Potassium [Cozaar] 100 mg PO QAM 07/25/19 Metoprolol Tartrate [Lopressor] 50 mg PO BID 07/25/19 Pantoprazole Sodium [Protonix [address] Tablet] 40 mg PO DAILY 07/25/19 Simvastatin 40 mg PO QHS 07/25/19 Timolol [Betimol] 1 drop OU BID 07/25/19 Tiotropium [place] [Spiriva Handihaler 5 Cap/Kit (18 Mcg/Cap)] 18 mcg IH DAILY 07/25/19 Prednisone [Deltasone 20 mg Tablet] 40 mg PO DAILY #10 tablet 07/27/19 Albuterol Sulfate [Ventolin 0.083% Neb 2.5 mg/3 ml Ampul] 1 vial NEB Q6HP PRN 10/04/19 Ferrous Sulfate 325 mg PO BID 10/04/19 Ipratropium [place] 2 spray NS TID 10/04/19 Allergies/Adverse Reactions: No Known Allergies Allergy (Unverified 03/14/18 16:01) Physical Exam Vital Signs: Temp Pulse Resp BP Pulse Ox 97.5 F 87 18 118/53 L 97 10/09/19 11:39 10/09/19 11:39 10/09/19 11:39 10/09/19 11:39 10/09/19 11:39 Intake & Output 10/08/19 10/09/19 10/10/19 06:59 06:59 06:59 Intake Total 890 1702 836 Output Total 1750 2020 150 Balance -860 -318 686 Weight 99.1 kg 97.2 kg Teeth exam: PRESENT: dental caries - Patient has partial edentulism. Teeth numbers 7, 8, 11, 12 and 20 are grossly carious and nonrestorable. There is no intraoral swelling and no teeth are sensitive to percussion. Results Laboratory Results: 10/07/19 04:16 10/05/19 05:02 10/04/19 04:01 Blood Blood Culture - Final NO GROWTH IN 5 DAYS 10/04/19 10/04/19 10/04/19 03:05 08:49 14:20 Troponin I 0.018 0.032 0.021 NT-Pro-B Natriuret Pep 251 10/04/19 20:54 Troponin I 0.017 NT-Pro-B Natriuret Pep Impressions: Facial Bones CT 10/08/19 00:00 IMPRESSION: Right maxillary sinusitis PICC Line Insertion 10/08/19 00:00 IMPRESSION: SUCCESSFUL PLACEMENT OF A 5 FR DUAL LUMEN 40 CM PICC IN THE LEFT BASILIC VEIN. Status: Image reviewed by me - I reviewed the CT scan of the facial bones. There are no periapical abscesses associated with any teeth. Both maxillary sinuses are clear. There is no maxillary or mandibular bony pathology. Assessment & Plan - Diagnosis (1) Bacteremia Is this a current diagnosis for this admission?: Yes (2) Poor dentition Is this a current diagnosis for this admission?: Yes (3) Positive blood culture Is this a current diagnosis for this admission?: Yes - Plan Summary Plan Summary: I plan to remove teeth numbers 7, 8, 11, 12 and 20 at bedside with local anesthesia. I reviewed procedure with the patient, with his nurse and his primary care physician. All of patient's questions were answered and written and oral consent obtained.
--- NOTE | 2019-10-09 14:24 | Operative Report ---
Operative Report DATE OF SURGERY: 10/09/19 PREOPERATIVE DIAGNOSIS: Dental caries and positive blood culture for oral bacte kendra POSTOPERATIVE DIAGNOSIS: Same OPERATION: Removal of teeth numbers 7, 8, 11, 12 and 20 and alveoloplasty of the upper left quadrant with local anesthesia at bedside SURGEON: MALLORY GARCIA ANESTHESIA: Local TISSUE REMOVED OR ALTERED: Teeth and bone which were discarded COMPLICATIONS: None ESTIMATED BLOOD LOSS: Minimal INTRAOPERATIVE FINDINGS: Nonrestorable and grossly carious teeth PROCEDURE: The procedure was performed at patient's bedside in room 404B. A total of 4 carpules of 4% Septocaine with 1:100K Epi and 2 carpules of 0.5% Marcaine with 1:200K Epi were delivered to the planned surgical sites via both infiltration and nerve block. The oral cavity and oropharynx were suctioned and a moistened oropharyngeal throat screen was placed. Full thickness mucoperisteal flaps were elevated. Ostectomy was completed as needed. Teeth were delivered with elevators and forceps. Alveoloplasty was completed using rongeurs and bone files. All sites debrided and irrigated. No sinus exposure noted. Mandible intact post op. JEREMY not visualized. Blood stop was placed into each of the sockets. Wounds reapproximated and sutured with 4-0 chromic gut. The oral cavity was suctioned and found to be free of debris. The throat screen was removed. Gauze packs were placed bilaterally to aid in continued hemastasis. The patient tolerated the procedure well. Postoperative instructions were reviewed with the patient orally and the patient was given a written copy. I also went over the instructions with the patient's nurse.
--- NOTE | 2019-10-09 15:10 | PDOC PROGRESS REPORT ---
Subjective Progress Note for:: 10/09/19 Subjective:: Patient seems to be doing quite well today from a respiratory standpoint. I have spoken with the oral surgeon who is agreed to consults and performed teeth extractions today. He will do this at bedside instead of using general anesthesia which I completely agree with based on the patient's chronically poor lungs. At some point, we will still need to get the patient a JIMMY but unfortunately this is not being done at this hospital due to coronavirus staffing issues. Patient states he is still been calling the [facility] to arrange this test and his follow-ups. Otherwise he has no new complaints. Reason For Visit: ACUTE EXACERBATION OF COPD, ACUTE ON CHRONIC Physical Exam Vital Signs: Temp Pulse Resp BP Pulse Ox 97.5 F 87 18 118/53 L 97 10/09/19 11:39 10/09/19 11:39 10/09/19 11:39 10/09/19 11:39 10/09/19 11:39 Intake & Output 10/08/19 10/09/19 10/10/19 06:59 06:59 06:59 Intake Total 890 1702 836 Output Total 1750 2020 150 Balance -860 -318 686 Weight 99.1 kg 97.2 kg General appearance: PRESENT: no acute distress, well-developed, well-nourished Head exam: PRESENT: atraumatic, normocephalic Eye exam: PRESENT: conjunctiva pink Mouth exam: PRESENT: moist Respiratory exam: PRESENT: clear to auscultation lico. ABSENT: rales, rhonchi, wheezes Cardiovascular exam: PRESENT: RRR. ABSENT: diastolic murmur, rubs, systolic murmur GI/Abdominal exam: PRESENT: normal bowel sounds, soft. ABSENT: distended, guarding, mass, organolmegaly, rebound, tenderness Neurological exam: PRESENT: alert, awake, oriented to person, oriented to place, oriented to time, oriented to situation Psychiatric exam: PRESENT: appropriate affect, normal mood Skin exam: PRESENT: dry, intact, warm Results Laboratory Results: 10/07/19 04:16 10/05/19 05:02 10/04/19 04:01 Blood Blood Culture - Final NO GROWTH IN 5 DAYS 10/04/19 10/04/19 10/04/19 03:05 08:49 14:20 Troponin I 0.018 0.032 0.021 NT-Pro-B Natriuret Pep 251 10/04/19 20:54 Troponin I 0.017 NT-Pro-B Natriuret Pep Impressions: Facial Bones CT 10/08/19 00:00 IMPRESSION: Right maxillary sinusitis PICC Line Insertion 10/08/19 00:00 IMPRESSION: SUCCESSFUL PLACEMENT OF A 5 FR DUAL LUMEN 40 CM PICC IN THE LEFT BASILIC VEIN. Assessment and Plan - Diagnosis (1) Acute exacerbation of chronic obstructive pulmonary disease Is this a current diagnosis for this admission?: Yes Plan: With acute hypoxemic respiratory failure Supplemental oxygen to maintain saturation 89 to 92% Bronchial hygiene -Nebulizers as needed Inhalers Steroids Antibiotics Possible he is aspirating and causing recurrent pneumonitis/pneumonia; speech therapy consulted Per patient, he had a positive barium swallow study at [facility] which showed aspiration/dysphagia Gradual consistent improvement, needs close follow-up outpatient with pulmonology Appears to be at baseline now (2) Bacteremia Is this a current diagnosis for this admission?: Yes Plan: Blood culture positive strep mitis/oralis 1/2 bottles, repeat blood cultures negative Ceftriaxone 2 g daily 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 TTE did not show vegetations Unable to do JIMMY due to no availability of this test here during coronavirus outbreak; [facility] to [facility] Oral surgery consulted for source control; performed multiple tooth extractions on 10/08 at bedside with only local anesthesia CT face did not show discrete abscesses (3) Acute and chronic respiratory failure with hypoxia Is this a current diagnosis for this admission?: Yes (4) COPD (chronic obstructive pulmonary disease) with acute bronchitis Is this a current diagnosis for this admission?: Yes (5) Coronary artery disease Qualifiers: Coronary Disease-Associated Artery/Lesion type: [place] artery [place] vs. transplanted heart: [place] heart Associated angina: without angina Qualified Code(s): I25.10 - Atherosclerotic heart disease of [place] coronary artery without angina pectoris Is this a current diagnosis for this admission?: Yes (6) Hyperlipidemia Qualifiers: Hyperlipidemia type: unspecified Qualified Code(s): E78.5 - Hyperlipidemia, unspecified Is this a current diagnosis for this admission?: Yes (7) Hypertension Qualifiers: Hypertension type: essential hypertension Qualified Code(s): I10 - Essential (primary) hypertension Is this a current diagnosis for this admission?: Yes (8) Positive blood culture Is this a current diagnosis for this admission?: Yes (9) Poor dentition Is this a current diagnosis for this admission?: Yes - Plan Summary Summary: Patient is admitted to the medical floor he will receive routine symptomatic and supportive cares. He will be treated with an aggressive pulmonary toilet utilizing nebulized Xopenex, Atrovent and Pulmicort. He will be treated with supplemental oxygen utilizing noninvasive airway pressure devices such as BiPAP or CPAP in order to maintain an adequate oxygen saturation. He will receive Solu-Medrol 40 mg IV every 6 hours x3 doses to complete his initial burst dosing. He will use Ativan 1 mg IV every 4 hours as needed for anxiety or restlessness. His usual home medications will be initiated as appropriate when his med list has been verified and reconciled. - Time Time Spent with patient: 25-34 minutes Medications reviewed and adjusted accordingly: Yes Anticipated discharge: Home - Inpatient Certification Based on my medical assessment, after consideration of the patient's comorbidities, presenting symptoms, or acuity I expect that the services needed warrant INPATIENT care.: Yes I certify that my determination is in accordance with my understanding of Medicare's requirements for reasonable and necessary INPATIENT services [42 CFR 412.3e].: Yes Medical Necessity: Significant Comorbidiites Make Outpatient Treatment Too Risky, Need for IV Antibiotics, Risk of Complication if Not Cared For in Hospital, Risk of Diagnosis Which Will Require Inpatient Eval/Care/Monitoring
[2019-10-09] MEDS: NORMAL SALINE 10 ML SDV (AFTER EACH USE) IV PRN (19:29)
[2019-10-09] MEDS: SIMVASTATIN 40 MG TABLET PO SCH (21:40)
[2019-10-10] MEDS: HEPARIN SOD (PORCINE) 5,000 UNIT/ML 1 ML VIAL SUBCUT SCH ×3 (05:08→21:02)
[2019-10-10] MEDS: PANTOPRAZOLE SODIUM 40 MG TABLET.DR PO SCH (05:31)
[2019-10-10] MEDS: LEVOTHYROXINE SODIUM 0.05 MG TABLET PO SCH (05:32)
[2019-10-10] MEDS: BUDESONIDE NEB 0.5 MG/2 ML AMPUL NEB SCH ×2 (08:02→20:04)
[2019-10-10] MEDS: IPRATROPIUM/ALBUTEROL 0.5-2.5 MG/3 ML AMPUL NEB SCH ×3 (08:02→20:04)
[2019-10-10] MEDS: LOSARTAN POTASSIUM 50 MG TABLET PO SCH (08:44)
--- NOTE | 2019-10-10 09:37 | PDOC PROGRESS REPORT ---
Subjective Progress Note for:: 10/10/19 Subjective:: 79 year old male who presented emergency room with acute dyspnea. He admits the sudden onset of severe dyspnea, while at home, just prior to coming to the emergency room via EMS. His dyspnea was constant, severe and worsened by any activity or exertion. His dyspnea was accompanied by wheezing and air hunger. He was using his home O2 and medications as prescribed without improvement. He denies other associated or accompanying signs and symptoms. He admits prior similar episodes related to his COPD and previous pneumonias. He has not identified any additional aggravating or ameliorating factors for his dyspnea. EMS treated the patient in route with IV Solu-Medrol, IV magnesium sulfate, serial albuterol nebulizer treatments and CPAP. Upon arrival in the emergency room patient was placed on BiPAP and continued to show some improvement although he has not tolerated any efforts to wean him from BiPAP. He was subsequently admitted to the hospital for further evaluation and treatment. 10/04-Patient's breathing is very slow to improve though he does note his breathing is less labored today. He continues to have shortness of breath and NEWBY with some mildly productive cough. He denies fevers chills nausea vomiting diarrhea abdominal pain. He would like a physical therapy evaluation 10/05-Patient's breathing is a bit better but not back to baseline, per patient about 50% to baseline. Blood culture growing 1/2 bottles strep mitis/paralysis concerning for possible dental infection versus aspiration. Patient states he has been seen at [facility] and was told that he does have dysphagia and aspiration seen on a barium swallow study. Speech therapy consulted here today. He does have rotten/possibly infected-looking teeth but states he is planning to follow-up with a oral surgeon in [facility]. He denies any dental pain currently but has had some recently. Echocardiogram ordered to rule out infective endocarditis. No other new complaints besides chronic shortness of breath/NEWBY. 10/07/19- Breathing continues to improve. Per patient, speech therapy thinks he does have some dysphagia and risk of aspiration. For instance, he is been told on multiple occasions to not drink or a straw and to take extra time when he is eating. Still has some very low pitched wheezing but I suspect this may be mostly chronic. Patient is quite weak and will most likely need rehab facility at discharge, possibly home health. Echocardiogram did not show any vegetations and showed normal function. Patient has no new complaints today 10/07 Getting probably getting close to baseline now. PICC line will need to be placed and he will need home health arranged to get ceftriaxone 2 g daily for the next 4 weeks. I have consulted the oral surgeon here locally and await his call back to see if he can perform some dental extractions on my patient for source control prior to discharge. Patient needs to have a sleep study and I discussed this with him. He will call the [facility] to schedule a JIMMY and sleep study. This hospital is not performing any JIMMY per my discussion with the technicians yesterday. Otherwise patient has no new complaints. 10/08-Patient seems to be doing quite well today from a respiratory standpoint. I have spoken with the oral surgeon who is agreed to consults and performed teeth extractions today. He will do this at bedside instead of using general anesthesia which I completely agree with based on the patient's chronically poor lungs. At some point, we will still need to get the patient a JIMMY but unfortunately this is not being done at this hospital due to coronavirus staffing issues. Patient states he is still been calling the [facility] to arrange this test and his follow-ups. Otherwise he has no new complaints. 10/09/2009 no acute events in the last 24 hours. Afebrile. Teeth extraction was done by oral surgeon. Patient is doing much better. Unable to do JIMMY at this time because of coronavirus staffing issues. Patient is on IV antibiotic therapy at this time. Reason For Visit: ACUTE EXACERBATION OF COPD, ACUTE ON CHRONIC Physical Exam Vital Signs: Temp Pulse Resp BP Pulse Ox 98.7 F 77 14 134/68 H 93 10/10/19 08:00 10/10/19 08:02 10/10/19 08:02 10/10/19 08:00 10/10/19 08:02 Intake & Output 10/09/19 10/10/19 10/11/19 06:59 06:59 06:59 Intake Total 1702 886 Output Total 2019 1496 Balance -318 -489 Weight 97.2 kg 96.4 kg General appearance: PRESENT: no acute distress, well-developed Head exam: PRESENT: atraumatic Eye exam: PRESENT: PERRLA Ear exam: PRESENT: normal external ear exam Mouth exam: PRESENT: neck supple Teeth exam: PRESENT: poor dentation Neck exam: ABSENT: carotid bruit, JVD, lymphadenopathy, thyromegaly Respiratory exam: PRESENT: decreased breath sounds Cardiovascular exam: PRESENT: RRR. ABSENT: diastolic murmur, rubs, systolic murmur GI/Abdominal exam: PRESENT: normal bowel sounds, soft. ABSENT: distended, guarding, mass, organolmegaly, rebound, tenderness Rectal exam: PRESENT: deferred Extremities exam: PRESENT: full ROM. ABSENT: calf tenderness, clubbing, pedal edema Neurological exam: PRESENT: alert, awake, oriented to person, oriented to place, oriented to time, oriented to situation, CN II-XII grossly intact. ABSENT: motor sensory deficit Psychiatric exam: PRESENT: appropriate affect, normal mood. ABSENT: homicidal ideation, suicidal ideation Results Laboratory Results: 10/07/19 04:16 10/05/19 05:02 10/04/19 10/04/19 10/04/19 03:05 08:49 14:20 Troponin I 0.018 0.032 0.021 NT-Pro-B Natriuret Pep 251 10/04/19 20:54 Troponin I 0.017 NT-Pro-B Natriuret Pep Impressions: Facial Bones CT 10/08/19 00:00 IMPRESSION: Right maxillary sinusitis PICC Line Insertion 10/08/19 00:00 IMPRESSION: SUCCESSFUL PLACEMENT OF A 5 FR DUAL LUMEN 40 CM PICC IN THE LEFT BASILIC VEIN. Assessment and Plan - Diagnosis (1) Acute exacerbation of chronic obstructive pulmonary disease Is this a current diagnosis for this admission?: Yes Plan: With acute hypoxemic respiratory failure Supplemental oxygen to maintain saturation 89 to 92% Bronchial hygiene -Nebulizers as needed Inhalers Steroids Antibiotics Possible he is aspirating and causing recurrent pneumonitis/pneumonia; speech therapy consulted Per patient, he had a positive barium swallow study at [facility] which showed aspiration/dysphagia Gradual consistent improvement, needs close follow-up outpatient with pulmonology Appears to be at baseline now 10/10/2019-patient is doing well. No complaints of respiratory issues. Pulse ox is 93% on 3 L. Patient is a high risk for aspiration pneumonia. He needs to follow-up with pulmonology in outpatient. Plan is to continue scheduled and as needed nebulizations. And is presently off IV steroids and plan to continue IV Rocephin. 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 Patient is presently on IV ceftriaxone 2 g daily for presumed infective endocarditis. Unable to do JIMMY at this time. (3) COPD (chronic obstructive pulmonary disease) with acute bronchitis Is this a current diagnosis for this admission?: No Plan: 10/10/2019-patient has history of COPD not on home oxygen. Pulse ox is 93% on 3 L today. To check for home oxygen requirements at the time of discharge. (4) Hypertension Qualifiers: Hypertension type: essential hypertension Qualified Code(s): I10 - Essential (primary) hypertension Is this a current diagnosis for this admission?: No Plan: 10/10/2019-patient has history of chronic essential hypertension blood pressure is 136/67. Stable. Plan is to continue the present management. (5) Poor dentition Is this a current diagnosis for this admission?: Yes Plan: Needs oral surgery consult, I have called them Multiple broken/rotten teeth 10/10/19-oral surgery consult was done during the hospital stay teeth extraction was done yesterday. - Plan Summary Summary: Patient is admitted to the medical floor he will receive routine symptomatic and supportive cares. He will be treated with an aggressive pulmonary toilet utilizing nebulized Xopenex, Atrovent and Pulmicort. He will be treated with supplemental oxygen utilizing noninvasive airway pressure devices such as BiPAP or CPAP in order to maintain an adequate oxygen saturation. He will receive Solu-Medrol 40 mg IV every 6 hours x3 doses to complete his initial burst dosing. He will use Ativan 1 mg IV every 4 hours as needed for anxiety or restlessness. His usual home medications will be initiated as appropriate when his med list has been verified and reconciled.
[2019-10-10] MEDS: NORMAL SALINE 10 ML SDV (SCHEDULED) IV SCH ×2 (10:15→21:32)
[2019-10-10] MEDS: ASPIRIN 81 MG TABLET, ENT COATED PO SCH (10:40)
[2019-10-10] MEDS: METOPROLOL TARTRATE 50 MG TABLET PO SCH ×2 (10:40→17:42)
[2019-10-10] MEDS: FUROSEMIDE 40 MG TABLET PO SCH (10:40)
[2019-10-10] MEDS: ALLOPURINOL 300 MG TABLET PO SCH ×2 (10:40→17:42)
[2019-10-10] MEDS: CLOPIDOGREL BISULFATE 75 MG TABLET PO SCH (10:41)
[2019-10-10] MEDS: AMLODIPINE BESYLATE 10 MG TABLET PO SCH (10:41)
[2019-10-10] MEDS: DOCUSATE SODIUM 100 MG CAPSULE PO SCH ×2 (10:42→17:12)
[2019-10-10] MEDS: FLUTICASONE NASAL SPRAY 50 MCG/SPRY 120 SPRAY/16 GM NASL SCH (10:42)
[2019-10-10] MEDS: BRIMONIDINE TARTRATE 0.2% OPH SOLN 5 ML OU SCH ×2 (10:43→17:42)
[2019-10-10] MEDS: CEFTRIAXONE 2 GM/D5W RTU 2 GM/50 ML RTUPB IV SCH (10:43)
[2019-10-10] MEDS: SIMVASTATIN 40 MG TABLET PO SCH (21:32)
[2019-10-11] MEDS: HEPARIN SOD (PORCINE) 5,000 UNIT/ML 1 ML VIAL SUBCUT SCH ×3 (05:53→21:23)
[2019-10-11] MEDS: PANTOPRAZOLE SODIUM 40 MG TABLET.DR PO SCH (06:00)
[2019-10-11] MEDS: LEVOTHYROXINE SODIUM 0.05 MG TABLET PO SCH (06:00)
[2019-10-11 06:27] LABS: HEMATOCRIT 35.5 % (37.9-51.0); HEMOGLOBIN 11.5 g/dL (13.5-17.0); MEAN CORPUSCULAR HGB CONC 32.3 g/dL (32.0-36.0); MEAN CORPUSCULAR VOLUME 90 fl (80-97); PLATELET COUNT 167 10^3/uL (150-450); RED BLOOD COUNT 3.96 10^6/uL (4.35-5.55); RED CELL DISTRIBUTION WIDTH 20.5 % (11.5-14.0); WHITE BLOOD COUNT 8.7 10^3/uL (4.0-10.5)
[2019-10-11 06:42] LABS: ALKALINE PHOSPHATASE 61 U/L (38-126); ASPARTATE AMINO TRANSFERASE 21 U/L (17-59); BILIRUBIN,DIRECT 0.2 mg/dL (0.0-0.4); BILIRUBIN,TOTAL 0.3 mg/dL (0.2-1.3); BLOOD UREA NITROGEN 16 mg/dL (7-20); CALCIUM 8.7 mg/dL (8.4-10.2); CARBON DIOXIDE 37 mmol/L (22-30); GLUCOSE 113 mg/dL (75-110); TOTAL PROTEIN 5.7 g/dL (6.3-8.2)
[2019-10-11 06:46] LABS: ABSOLUTE LYMPHOCYTES# (MANUAL) 1.6 10^3/uL (0.5-4.7); BASOPHILS % (MANUAL) 2 % (0-2); EOSINOPHILS % (MANUAL) 0 % (0-6); LYMPHOCYTES % (MANUAL) 15 % (13-45); METAMYELOCYTES % (MANUAL) 1 % (0-1); MONOCYTES % (MANUAL) 0 % (3-13); SEGMENTED NEUTROPHILS % (MAN) 79 % (42-78); TOTAL CELLS COUNTED 100
[2019-10-11 06:47] LABS: CHLORIDE 94 mmol/L (98-107)
[2019-10-11 06:48] LABS: ANION GAP 3 (5-19); ANISOCYTOSIS 2+; OVALOCYTES 1+; PLATELET COMMENT ADEQUATE; POIKILOCYTOSIS 2+; TEAR DROP CELLS 1+; TOXIC GRANULATION 1+
[2019-10-11] MEDS: BUDESONIDE NEB 0.5 MG/2 ML AMPUL NEB SCH ×2 (08:20→20:34)
[2019-10-11] MEDS: IPRATROPIUM/ALBUTEROL 0.5-2.5 MG/3 ML AMPUL NEB SCH ×3 (08:20→20:34)
[2019-10-11] MEDS: LOSARTAN POTASSIUM 50 MG TABLET PO SCH (08:49)
[2019-10-11] MEDS: ASPIRIN 81 MG TABLET, ENT COATED PO SCH (09:00)
[2019-10-11] MEDS: FUROSEMIDE 40 MG TABLET PO SCH (09:00)
[2019-10-11] MEDS: ALLOPURINOL 300 MG TABLET PO SCH ×2 (09:01→18:06)
[2019-10-11] MEDS: AMLODIPINE BESYLATE 10 MG TABLET PO SCH (09:01)
[2019-10-11] MEDS: NORMAL SALINE 10 ML SDV (SCHEDULED) IV SCH ×2 (09:01→21:23)
[2019-10-11] MEDS: CLOPIDOGREL BISULFATE 75 MG TABLET PO SCH (09:01)
[2019-10-11] MEDS: BRIMONIDINE TARTRATE 0.2% OPH SOLN 5 ML OU SCH ×2 (09:02→18:07)
[2019-10-11] MEDS: DOCUSATE SODIUM 100 MG CAPSULE PO SCH ×2 (09:02→18:07)
[2019-10-11] MEDS: METOPROLOL TARTRATE 50 MG TABLET PO SCH ×2 (09:02→18:05)
[2019-10-11] MEDS: FLUTICASONE NASAL SPRAY 50 MCG/SPRY 120 SPRAY/16 GM NASL SCH (09:03)
[2019-10-11] MEDS: CEFTRIAXONE 2 GM/D5W RTU 2 GM/50 ML RTUPB IV SCH (09:04)
--- NOTE | 2019-10-11 10:39 | PDOC PROGRESS REPORT ---
Subjective Progress Note for:: 10/11/19 Subjective:: 79 year old male who presented emergency room with acute dyspnea. He admits the sudden onset of severe dyspnea, while at home, just prior to coming to the emergency room via EMS. His dyspnea was constant, severe and worsened by any activity or exertion. His dyspnea was accompanied by wheezing and air hunger. He was using his home O2 and medications as prescribed without improvement. He denies other associated or accompanying signs and symptoms. He admits prior similar episodes related to his COPD and previous pneumonias. He has not identified any additional aggravating or ameliorating factors for his dyspnea. EMS treated the patient in route with IV Solu-Medrol, IV magnesium sulfate, serial albuterol nebulizer treatments and CPAP. Upon arrival in the emergency room patient was placed on BiPAP and continued to show some improvement although he has not tolerated any efforts to wean him from BiPAP. He was subsequently admitted to the hospital for further evaluation and treatment. 10/04-Patient's breathing is very slow to improve though he does note his breathing is less labored today. He continues to have shortness of breath and ENWBY with some mildly productive cough. He denies fevers chills nausea vomiting diarrhea abdominal pain. He would like a physical therapy evaluation 10/05-Patient's breathing is a bit better but not back to baseline, per patient about 50% to baseline. Blood culture growing 1/2 bottles strep mitis/paralysis concerning for possible dental infection versus aspiration. Patient states he has been seen at [facility] and was told that he does have dysphagia and aspiration seen on a barium swallow study. Speech therapy consulted here today. He does have rotten/possibly infected-looking teeth but states he is planning to follow-up with a oral surgeon in [facility]. He denies any dental pain currently but has had some recently. Echocardiogram ordered to rule out infective endocarditis. No other new complaints besides chronic shortness of breath/NEWBY. 10/07/19- Breathing continues to improve. Per patient, speech therapy thinks he does have some dysphagia and risk of aspiration. For instance, he is been told on multiple occasions to not drink or a straw and to take extra time when he is eating. Still has some very low pitched wheezing but I suspect this may be mostly chronic. Patient is quite weak and will most likely need rehab facility at discharge, possibly home health. Echocardiogram did not show any vegetations and showed normal function. Patient has no new complaints today 10/07 Getting probably getting close to baseline now. PICC line will need to be placed and he will need home health arranged to get ceftriaxone 2 g daily for the next 4 weeks. I have consulted the oral surgeon here locally and await his call back to see if he can perform some dental extractions on my patient for source control prior to discharge. Patient needs to have a sleep study and I discussed this with him. He will call the [place] to schedule a JIMMY and sleep study. This hospital is not performing any JIMMY per my discussion with the technicians yesterday. Otherwise patient has no new complaints. 10/08-Patient seems to be doing quite well today from a respiratory standpoint. I have spoken with the oral surgeon who is agreed to consults and performed teeth extractions today. He will do this at bedside instead of using general anesthesia which I completely agree with based on the patient's chronically poor lungs. At some point, we will still need to get the patient a JIMMY but unfortunately this is not being done at this hospital due to coronavirus staffing issues. Patient states he is still been calling the [facility] to arrange this test and his follow-ups. Otherwise he has no new complaints. 10/09/2009 no acute events in the last 24 hours. Afebrile. Teeth extraction was done by oral surgeon. Patient is doing much better. Unable to do JIMMY at this time because of coronavirus staffing issues. Patient is on IV antibiotic therapy at this time. 10/11/2019-no acute events in the last 24 hours. Afebrile. Doing well. He is still on IV ceftriaxone. Because we are unable to do the JIMMY at this time he needs to be on IV Rocephin for 4 weeks. He has a PICC line. Portably in the chair communicating well. Reason For Visit: ACUTE EXACERBATION OF COPD, ACUTE ON CHRONIC Physical Exam Vital Signs: Temp Pulse Resp BP Pulse Ox 98.3 F 86 16 110/62 97 10/11/19 08:00 10/11/19 08:20 10/11/19 08:20 10/11/19 08:00 10/11/19 08:20 Intake & Output 10/10/19 10/11/19 10/12/19 06:59 06:59 06:59 Intake Total 886 1286 50 Output Total 1375 2350 Balance -489 -1064 50 Weight 96.4 kg 95.2 kg General appearance: PRESENT: no acute distress, obese Head exam: PRESENT: atraumatic Eye exam: PRESENT: PERRLA Mouth exam: PRESENT: moist, tongue midline Teeth exam: PRESENT: poor dentation Neck exam: ABSENT: carotid bruit, JVD, lymphadenopathy, thyromegaly Respiratory exam: PRESENT: decreased breath sounds Cardiovascular exam: PRESENT: RRR. ABSENT: diastolic murmur, rubs, systolic murmur GI/Abdominal exam: PRESENT: normal bowel sounds, soft. ABSENT: distended, guarding, mass, organolmegaly, rebound, tenderness Rectal exam: PRESENT: deferred Extremities exam: PRESENT: full ROM. ABSENT: calf tenderness, clubbing, pedal edema Neurological exam: PRESENT: alert, awake, oriented to person, oriented to place, oriented to time, oriented to situation, CN II-XII grossly intact. ABSENT: motor sensory deficit Psychiatric exam: PRESENT: appropriate affect, normal mood. ABSENT: homicidal ideation, suicidal ideation Results Laboratory Results: 10/11/19 06:10 10/11/19 06:10 10/11/19 10/11/19 06:10 06:10 WBC 8.7 RBC 3.96 L Hgb 11.5 L Hct 35.5 L MCV 90 MCH 29.0 MCHC 32.3 RDW 20.5 H Plt Count 167 Seg Neutrophils % Not Reportable Sodium 134.3 L Potassium 4.0 Chloride 94 L Carbon Dioxide 37 H Anion Gap 3 L BUN 16 Creatinine 0.75 Est GFR ( Amer) > 60 Glucose 113 H Calcium 8.7 Magnesium 2.1 Total Bilirubin 0.3 AST 21 Alkaline Phosphatase 61 Total Protein 5.7 L Albumin 3.0 L 10/04/19 10/04/19 10/04/19 03:05 08:49 14:20 Troponin I 0.018 0.032 0.021 NT-Pro-B Natriuret Pep 251 10/04/19 20:54 Troponin I 0.017 NT-Pro-B Natriuret Pep Impressions: Facial Bones CT 10/08/19 00:00 IMPRESSION: Right maxillary sinusitis PICC Line Insertion 10/08/19 00:00 IMPRESSION: SUCCESSFUL PLACEMENT OF A 5 FR DUAL LUMEN 40 CM PICC IN THE LEFT BASILIC VEIN. Assessment and Plan - Diagnosis (1) Acute exacerbation of chronic obstructive pulmonary disease Is this a current diagnosis for this admission?: Yes Plan: With acute hypoxemic respiratory failure Supplemental oxygen to maintain saturation 89 to 92% Bronchial hygiene -Nebulizers as needed Inhalers Steroids Antibiotics Possible he is aspirating and causing recurrent pneumonitis/pneumonia; speech therapy consulted Per patient, he had a positive barium swallow study at [facility] which showed aspiration/dysphagia Gradual consistent improvement, needs close follow-up outpatient with lmonology Appears to be at baseline now 10/10/2019-patient is doing well. No complaints of respiratory issues. Pulse ox is 93% on 3 L. Patient is a high risk for aspiration pneumonia. He needs to follow-up with pulmonology in outpatient. Plan is to continue scheduled and as needed nebulizations. And is presently off IV steroids and plan to continue IV Rocephin. 10/11/2019-patient is comfortable in the wheelchair communicating well. Not in distress. Pulse ox is 92% on 3 L. Oxygen requirements are decreasing. (2) Bacteremia Is this a current diagnosis for this admission?: Yes Plan: Blood culture positive strep mitis/oralis / bottles, repeat blood cultures negative Ceftriaxone 2 g daily 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 TTE did not show vegetations Unable to do JIMMY due to no availability of this test here during coronavirus outbreak; [facility] to [facility] with [facility] Oral surgery consulted for source control; performed multiple tooth extractions on 10/08 at bedside with only local anesthesia CT face did not show discrete abscesses 10/10/2019-blood cultures are positive for strep mitis/paralysis and repeat blood cultures are negative. Patient is presently on IV ceftriaxone 2 g daily for presumed infective endocarditis. Unable to do JIMMY at this time. 10/11/2019-patient is presently on IV ceftriaxone and he has a PICC line. Plan is to continue the antibiotic therapy for a total duration of 4 weeks. (3) COPD (chronic obstructive pulmonary disease) with acute bronchitis Is this a current diagnosis for this admission?: No Plan: 10/10/2019-patient has history of COPD not on home oxygen. Pulse ox is 93% on 3 L today. To check for home oxygen requirements at the time of discharge. (4) Hypertension Qualifiers: Hypertension type: essential hypertension Qualified Code(s): I10 - Essential (primary) hypertension Is this a current diagnosis for this admission?: No Plan: 10/10/2019-patient has history of chronic essential hypertension blood pressure is 136/67. Stable. Plan is to continue the present management. (5) Poor dentition Is this a current diagnosis for this admission?: Yes Plan: Needs oral surgery consult, I have called them Multiple broken/rotten teeth 10/10/19-oral surgery consult was done during the hospital stay teeth extraction was done yesterday. - Plan Summary Summary: Patient is admitted to the medical floor he will receive routine symptomatic and supportive cares. He will be treated with an aggressive pulmonary toilet utilizing nebulized Xopenex, Atrovent and Pulmicort. He will be treated with supplemental oxygen utilizing noninvasive airway pressure devices such as BiPAP or CPAP in order to maintain an adequate oxygen saturation. He will receive Solu-Medrol 40 mg IV every 6 hours x3 doses to complete his initial burst dosing. He will use Ativan 1 mg IV every 4 hours as needed for anxiety or restlessness. His usual home medications will be initiated as appropriate when his med list has been verified and reconciled.
[2019-10-11] MEDS: SIMVASTATIN 40 MG TABLET PO SCH (21:23)
[2019-10-12] MEDS: LEVOTHYROXINE SODIUM 0.05 MG TABLET PO SCH (05:01)
[2019-10-12] MEDS: PANTOPRAZOLE SODIUM 40 MG TABLET.DR PO SCH (05:01)
[2019-10-12] MEDS: HEPARIN SOD (PORCINE) 5,000 UNIT/ML 1 ML VIAL SUBCUT SCH ×3 (05:01→21:28)
[2019-10-12] MEDS: IPRATROPIUM/ALBUTEROL 0.5-2.5 MG/3 ML AMPUL NEB SCH ×3 (08:26→20:04)
[2019-10-12] MEDS: BUDESONIDE NEB 0.5 MG/2 ML AMPUL NEB SCH ×2 (08:26→20:04)
[2019-10-12] MEDS: LOSARTAN POTASSIUM 50 MG TABLET PO SCH (08:36)
--- NOTE | 2019-10-12 09:42 | PDOC PROGRESS REPORT ---
Subjective Progress Note for:: 10/12/19 Subjective:: 79 year old male who presented emergency room with acute dyspnea. He admits the sudden onset of severe dyspnea, while at home, just prior to coming to the emergency room via EMS. His dyspnea was constant, severe and worsened by any activity or exertion. His dyspnea was accompanied by wheezing and air hunger. He was using his home O2 and medications as prescribed without improvement. He denies other associated or accompanying signs and symptoms. He admits prior similar episodes related to his COPD and previous pneumonias. He has not identified any additional aggravating or ameliorating factors for his dyspnea. EMS treated the patient in route with IV Solu-Medrol, IV magnesium sulfate, serial albuterol nebulizer treatments and CPAP. Upon arrival in the emergency room patient was placed on BiPAP and continued to show some improvement although he has not tolerated any efforts to wean him from BiPAP. He was subsequently admitted to the hospital for further evaluation and treatment. 10/04-Patient's breathing is very slow to improve though he does note his breathing is less labored today. He continues to have shortness of breath and NEWBY with some mildly productive cough. He denies fevers chills nausea vomiting diarrhea abdominal pain. He would like a physical therapy evaluation 10/05-Patient's breathing is a bit better but not back to baseline, per patient about 50% to baseline. Blood culture growing 1/2 bottles strep mitis/paralysis concerning for possible dental infection versus aspiration. Patient states he has been seen at [facility] and was told that he does have dysphagia and aspiration seen on a barium swallow study. Speech therapy consulted here today. He does have rotten/possibly infected-looking teeth but states he is planning to follow-up with a oral surgeon in [facility]. He denies any dental pain currently but has had some recently. Echocardiogram ordered to rule out infective endocarditis. No other new complaints besides chronic shortness of breath/NEWBY. 10/07/19- Breathing continues to improve. Per patient, speech therapy thinks he does have some dysphagia and risk of aspiration. For instance, he is been told on multiple occasions to not drink or a straw and to take extra time when he is eating. Still has some very low pitched wheezing but I suspect this may be mostly chronic. Patient is quite weak and will most likely need rehab facility at discharge, possibly home health. Echocardiogram did not show any vegetations and showed normal function. Patient has no new complaints today 10/07 Getting probably getting close to baseline now. PICC line will need to be placed and he will need home health arranged to get ceftriaxone 2 g daily for the next 4 weeks. I have consulted the oral surgeon here locally and await his call back to see if he can perform some dental extractions on my patient for source control prior to discharge. Patient needs to have a sleep study and I discussed this with him. He will call the CT to schedule a JIMMY and sleep study. This hospital is not performing any JIMMY per my discussion with the technicians yesterday. Otherwise patient has no new complaints. 10/08-Patient seems to be doing quite well today from a respiratory standpoint. I have spoken with the oral surgeon who is agreed to consults and performed teeth extractions today. He will do this at bedside instead of using general anesthesia which I completely agree with based on the patient's chronically poor lungs. At some point, we will still need to get the patient a JIMMY but unfortunately this is not being done at this hospital due to coronavirus staffing issues. Patient states he is still been calling the [facility] to arrange this test and his follow-ups. Otherwise he has no new complaints. 10/09/2009 no acute events in the last 24 hours. Afebrile. Teeth extraction was done by oral surgeon. Patient is doing much better. Unable to do JIMMY at this time because of coronavirus staffing issues. Patient is on IV antibiotic therapy at this time. 10/11/2019-no acute events in the last 24 hours. Afebrile. Doing well. He is still on IV ceftriaxone. Because we are unable to do the JIMMY at this time he needs to be on IV Rocephin for 4 weeks. He has a PICC line. Portably in the chair communicating well. 10/12/19-coronavirus testing is pending. Once this test is negative patient able to go back to [facility]. No acute events in the last 24 hours. Afebrile. He needs to go back to [facility] with IV Rocephin to complete the antibiotic therapy. He need a total of 4 weeks of antibiotic therapy. Reason For Visit: ACUTE EXACERBATION OF COPD, ACUTE ON CHRONIC Physical Exam Vital Signs: Temp Pulse Resp BP Pulse Ox 97.3 F 83 16 142/55 H 94 10/12/19 08:25 10/12/19 08:26 10/12/19 08:26 10/12/19 08:25 10/12/19 08:26 Intake & Output 10/11/19 10/12/19 10/13/19 06:59 06:59 06:59 Intake Total 1286 990 Output Total 2350 1700 Balance -1064 -710 Weight 95.2 kg 94.4 kg General appearance: PRESENT: no acute distress, obese, well-developed Head exam: PRESENT: atraumatic Eye exam: PRESENT: PERRLA Mouth exam: PRESENT: neck supple Teeth exam: PRESENT: poor dentation Neck exam: ABSENT: carotid bruit, JVD, lymphadenopathy, thyromegaly Respiratory exam: PRESENT: decreased breath sounds Cardiovascular exam: PRESENT: RRR. ABSENT: diastolic murmur, rubs, systolic murmur Pulses: PRESENT: normal dorsalis pedis pul GI/Abdominal exam: PRESENT: normal bowel sounds, soft. ABSENT: distended, guarding, mass, organolmegaly, rebound, tenderness Rectal exam: PRESENT: deferred Extremities exam: PRESENT: full ROM. ABSENT: calf tenderness, clubbing, pedal edema Neurological exam: PRESENT: alert, awake, oriented to person, oriented to place, oriented to time, oriented to situation, CN II-XII grossly intact. ABSENT: motor sensory deficit Psychiatric exam: PRESENT: appropriate affect, normal mood. ABSENT: homicidal ideation, suicidal ideation Results Laboratory Results: 10/11/19 06:10 10/11/19 06:10 10/06/19 16:54 Blood Blood Culture - Final NO GROWTH IN 5 DAYS 10/06/19 16:33 Blood Blood Culture - Final NO GROWTH IN 5 DAYS 10/04/19 10/04/19 10/04/19 03:05 08:49 14:20 Troponin I 0.018 0.032 0.021 NT-Pro-B Natriuret Pep 251 10/04/19 20:54 Troponin I 0.017 NT-Pro-B Natriuret Pep Impressions: Facial Bones CT 10/08/19 00:00 IMPRESSION: Right maxillary sinusitis PICC Line Insertion 10/08/19 00:00 IMPRESSION: SUCCESSFUL PLACEMENT OF A 5 FR DUAL LUMEN 40 CM PICC IN THE LEFT B ASILIC VEIN. Assessment and Plan - Diagnosis (1) Acute exacerbation of chronic obstructive pulmonary disease Is this a current diagnosis for this admission?: Yes Plan: With acute hypoxemic respiratory failure Supplemental oxygen to maintain saturation 89 to 92% Bronchial hygiene -Nebulizers as needed Inhalers Steroids Antibiotics Possible he is aspirating and causing recurrent pneumonitis/pneumonia; speech therapy consulted Per patient, he had a positive barium swallow study at [facility] which showed aspiration/dysphagia Gradual consistent improvement, needs close follow-up outpatient with pulmonology Appears to be at baseline now 10/10/2019-patient is doing well. No complaints of respiratory issues. Pulse ox is 93% on 3 L. Patient is a high risk for aspiration pneumonia. He needs to follow-up with pulmonology in outpatient. Plan is to continue scheduled and as needed nebulizations. And is presently off IV steroids and plan to continue IV Rocephin. 10/11/2019-patient is comfortable in the wheelchair communicating well. Not in distress. Pulse ox is 92% on 3 L. Oxygen requirements are decreasing. 10/12/2019-patient is comfortably in the bed communicating well. Expressing desire to go back to [facility]. Plan to him that we are waiting for the coronavirus testing results. 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 Patient is presently on IV ceftriaxone 2 g daily for presumed infective endocarditis. Unable to do JIMMY at this time. 10/11/2019-patient is presently on IV ceftriaxone and he has a PICC line. Plan is to continue the antibiotic therapy for a total duration of 4 weeks. 10/12/19-plan is to give IV Rocephin for a total duration of 4 weeks. He has a PICC line. (3) COPD (chronic obstructive pulmonary disease) with acute bronchitis Is this a current diagnosis for this admission?: No Plan: 10/10/2019-patient has history of COPD not on home oxygen. Pulse ox is 93% on 3 L today. To check for home oxygen requirements at the time of discharge. (4) Hypertension Qualifiers: Hypertension type: essential hypertension Qualified Code(s): I10 - Ess ential (primary) hypertension Is this a current diagnosis for this admission?: No Plan: 10/10/2019-patient has history of chronic essential hypertension blood pressure is 136/67. Stable. Plan is to continue the present management. 1320-blood pressure today is 115/60. Stable. Plan is to continue the present management. (5) Poor dentition Is this a current diagnosis for this admission?: Yes Plan: Needs oral surgery consult, I have called them Multiple broken/rotten teeth 10/10/19-oral surgery consult was done during the hospital stay teeth extraction was done yesterday. - Plan Summary Summary: Patient is admitted to the medical floor he will receive routine symptomatic and supportive cares. He will be treated with an aggressive pulmonary toilet utilizing nebulized Xopenex, Atrovent and Pulmicort. He will be treated with supplemental oxygen utilizing noninvasive airway pressure devices such as BiPAP or CPAP in order to maintain an adequate oxygen saturation. He will receive Solu-Medrol 40 mg IV every 6 hours x3 doses to complete his initial burst dosing. He will use Ativan 1 mg IV every 4 hours as needed for anxiety or restlessness. His usual home medications will be initiated as appropriate when his med list has been verified and reconciled.
[2019-10-12] MEDS: FLUTICASONE NASAL SPRAY 50 MCG/SPRY 120 SPRAY/16 GM NASL SCH (09:59)
[2019-10-12] MEDS: ASPIRIN 81 MG TABLET, ENT COATED PO SCH (10:00)
[2019-10-12] MEDS: BRIMONIDINE TARTRATE 0.2% OPH SOLN 5 ML OU SCH ×2 (10:00→18:10)
[2019-10-12] MEDS: DOCUSATE SODIUM 100 MG CAPSULE PO SCH ×2 (10:00→18:09)
[2019-10-12] MEDS: FUROSEMIDE 40 MG TABLET PO SCH (10:00)
[2019-10-12] MEDS: CLOPIDOGREL BISULFATE 75 MG TABLET PO SCH (10:00)
[2019-10-12] MEDS: ALLOPURINOL 300 MG TABLET PO SCH ×2 (10:00→18:09)
[2019-10-12] MEDS: AMLODIPINE BESYLATE 10 MG TABLET PO SCH (10:00)
[2019-10-12] MEDS: METOPROLOL TARTRATE 50 MG TABLET PO SCH ×2 (10:00→18:09)
[2019-10-12] MEDS: NORMAL SALINE 10 ML SDV (AFTER EACH USE) IV PRN (10:02)
[2019-10-12] MEDS: NORMAL SALINE 10 ML SDV (SCHEDULED) IV SCH ×2 (10:02→21:31)
[2019-10-12] MEDS: CEFTRIAXONE 2 GM/D5W RTU 2 GM/50 ML RTUPB IV SCH (13:18)
[2019-10-12] MEDS: SIMVASTATIN 40 MG TABLET PO SCH (21:29)
[2019-10-13] MEDS: HEPARIN SOD (PORCINE) 5,000 UNIT/ML 1 ML VIAL SUBCUT SCH ×2 (05:26→13:13)
[2019-10-13] MEDS: LEVOTHYROXINE SODIUM 0.05 MG TABLET PO SCH (05:29)
[2019-10-13] MEDS: PANTOPRAZOLE SODIUM 40 MG TABLET.DR PO SCH (05:29)
[2019-10-13] MEDS: BUDESONIDE NEB 0.5 MG/2 ML AMPUL NEB SCH (07:58)
[2019-10-13] MEDS: IPRATROPIUM/ALBUTEROL 0.5-2.5 MG/3 ML AMPUL NEB SCH ×2 (07:58→13:54)
[2019-10-13] MEDS: BRIMONIDINE TARTRATE 0.2% OPH SOLN 5 ML OU SCH (10:00)
[2019-10-13] MEDS: NORMAL SALINE 10 ML SDV (SCHEDULED) IV SCH (10:00)
[2019-10-13] MEDS: ALLOPURINOL 300 MG TABLET PO SCH (10:00)
[2019-10-13] MEDS: FLUTICASONE NASAL SPRAY 50 MCG/SPRY 120 SPRAY/16 GM NASL SCH (10:00)
[2019-10-13] MEDS: LOSARTAN POTASSIUM 50 MG TABLET PO SCH (10:00)
[2019-10-13] MEDS: AMLODIPINE BESYLATE 10 MG TABLET PO SCH (10:27)
[2019-10-13] MEDS: CLOPIDOGREL BISULFATE 75 MG TABLET PO SCH (10:27)
[2019-10-13] MEDS: FUROSEMIDE 40 MG TABLET PO SCH (10:28)
[2019-10-13] MEDS: ASPIRIN 81 MG TABLET, ENT COATED PO SCH (10:29)
[2019-10-13] MEDS: DOCUSATE SODIUM 100 MG CAPSULE PO SCH (10:29)
[2019-10-13] MEDS: METOPROLOL TARTRATE 50 MG TABLET PO SCH (10:32)
[2019-10-13] MEDS: CEFTRIAXONE 2 GM/D5W RTU 2 GM/50 ML RTUPB IV SCH (12:00)
--- NOTE | 2019-10-13 15:21 | PDOC TRANSFER SUMMARY ---
Impression - Admit/DC Date/PCP Admission Date/Primary Care Provider: 10/04/19 04:43 [facility] Discharge Date: 10/13/19 - Assessment Summary: Patient is admitted to the medical floor he will receive routine symptomatic and supportive cares. He will be treated with an aggressive pulmonary toilet utilizing nebulized Xopenex, Atrovent and Pulmicort. He will be treated with supplemental oxygen utilizing noninvasive airway pressure devices such as BiPAP or CPAP in order to maintain an adequate oxygen saturation. He will receive Solu-Medrol 40 mg IV every 6 hours x3 doses to complete his initial burst dosing. He will use Ativan 1 mg IV every 4 hours as needed for anxiety or restlessness. His usual home medications will be initiated as appropriate when his med list has been verified and reconciled. 10/13/2019 He is being discharged to [facility] today. Patient will need 4 more weeks of IV Rocephin, due to teeth extraction. Does have a PICC line in place. Tells me that he is been in either [facility] or our hospital multiple times in the last several months for his COPD. She was admitted to our hospital for acute shortness of breath, COPD exacerbation, oxygen dependency, hypertension, bacteremia, poor dentition. Stop date on his IV Rocephin will be approximately November 03 Patient's other medication prescribed today is a Medrol Dosepak. He was originally admitted to the hospital with acute shortness of breath and by EMS. Improved with IV Solu-Medrol. Cultures showed 1 of 2 bottles growing strep, dental infection versus endocarditis. UnFortunately because of the COVID virus we were unable to do a JIMMY. 4 patient is being empirically treated with 4 weeks of IV antibiotics She will need a follow-up JIMMY at the [facility] or as an outpatient Oral surgery did see the patient while in the hospital and on 10/08 , tooth number-7, 8, 11, well and 20. AlSo a alveolar lasty of the upper left quadrant with local anesthesia. She has done well and had no complications. Patient will need routine follow-up as needed Patient is medically stable for discharge - Additional Information Resuscitation Status: Full Code Discharge Diet: Cardiac Discharge Activity: Balance Activity w/Rest Referrals: [facility] [[facility] Care [facility]] - Follow up as needed Prescriptions: Methylprednisolone [Medrol Dosepack (4 mg/Tab) 21 Tab/Dosepak] 4 mg PO ASDIR PRN #21 tab.ds.pk PRN Reason: Ceftriaxone 2 gm/D5w RTU [Rocephin RTU 2 gm/D5w 50 ml Premix Bag] 2 gm IV DAILY 21 Days #21 rtupb Home Medications: Albuterol Sulfate [Proair Digihaler] 2 puff IH Q8HP PRN 07/25/19 Allopurinol [Zyloprim 300 mg Tablet] 300 mg PO BID 07/25/19 Amlodipine Besylate [Norvasc 10 mg Tablet] 10 mg PO DAILY 07/25/19 Aspirin [Ecotrin 81 mg EC Tablet] 81 mg PO DAILY 07/25/19 Brimonidine Tartrate [Alphagan 0.2% Oph Soln 5 ml] 1 drop OU BID 07/25/19 Budesonide/Formoterol Fumarate [Symbicort HFA 160-4.5 mcg Inhaler 6 gm] 2 puff IH Q12 07/25/19 Calcium Carbonate [Calcium] 500 mg PO DAILYP PRN 07/25/19 Latanoprost/Pf [Latanoprost 0.005% Eye Drop] 1 drop OU QHS 07/25/19 Levothyroxine Sodium [Synthroid 0.05 mg Tablet] 50 mcg PO DAILY 07/25/19 Losartan Potassium [Cozaar] 100 mg PO QAM 07/25/19 Metoprolol Tartrate [Lopressor] 50 mg PO BID 07/25/19 Pantoprazole Sodium [Protonix [address] Tablet] 40 mg PO DAILY 07/25/19 Simvastatin 40 mg PO QHS 07/25/19 Timolol [Betimol] 1 drop OU BID 07/25/19 Tiotropium [place] [Spiriva Handihaler 5 Cap/Kit (18 Mcg/Cap)] 18 mcg IH DAILY 07/25/19 Albuterol Sulfate [Ventolin 0.083% Neb 2.5 mg/3 mL Ampul] 1 vial NEB Q6HP PRN 10/04/19 Ferrous Sulfate 325 mg PO BID 10/04/19 Ipratropium [place] 2 spray NS TID 10/04/19 Acetaminophen [Tylenol 325 mg Tablet] 650 mg PO Q4HP PRN tablet 10/13/19 Albuterol Sulfate [Ventolin Hfa 8 gm Mdi] 2 puff IH RTQ4HP PRN inhaler 10/13/19 Aspirin [Ecotrin 81 mg EC Tablet] 81 mg PO DAILY tabec 10/13/19 Ceftriaxone 2 gm/D5w RTU [Rocephin RTU 2 gm/D5w 50 ml Premix Bag] 2 gm IV DAILY 21 Days #21 rtupb 10/13/19 Docusate Sodium [Colace 100 mg Capsule] 100 mg PO BID capsule 10/13/19 Methylprednisolone [Medrol Dosepack (4 mg/Tab) 21 Tab/Dosepak] 4 mg PO ASDIR PRN #21 tab.ds.pk 10/13/19 History of Present Illiness History of Present Illness: ENRIQUE JONES is a 79 year old male Physical Exam Vital Signs: Temp Pulse Resp BP Pulse Ox 97.4 F 77 18 123/54 L 95 10/13/19 10:50 10/13/19 13:54 10/13/19 13:54 10/13/19 10:50 10/13/19 13:54 Intake & Output 10/12/19 10/13/19 10/14/19 06:59 06:59 06:59 Intake Total 990 1778 Output Total 1700 1650 Balance -710 128 Weight 94.4 kg 94.4 kg Results Laboratory Results: WBC 8.7 10^3/uL (4.0-10.5) 10/11/19 06:10 RBC 3.96 10^6/uL (4.35-5.55) L 10/11/19 06:10 Hgb 11.5 g/dL (13.5-17.0) L 10/11/19 06:10 Hct 35.5 % (37.9-51.0) L 10/11/19 06:10 MCV 90 fl (80-97) 10/11/19 06:10 MCH 29.0 pg (27.0-33.4) 10/11/19 06:10 MCHC 32.3 g/dL (32.0-36.0) 10/11/19 06:10 RDW 20.5 % (11.5-14.0) H 10/11/19 06:10 Plt Count 167 10^3/uL (150-450) 10/11/19 06:10 Lymph % (Auto) Not Reportable 10/11/19 06:10 [place] % (Auto) Not Reportable 10/11/19 06:10 Eos % (Auto) Not Reportable 10/11/19 06:10 Baso % (Auto) Not Reportable 10/11/19 06:10 Absolute Neuts (auto) Not Reportable 10/11/19 06:10 Absolute Lymphs (auto) Not Reportable 10/11/19 06:10 Absolute Monos (auto) Not Reportable 10/11/19 06:10 Absolute Eos (auto) Not Reportable 10/11/19 06:10 Absolute Basos (auto) Not Reportable 10/11/19 06:10 Total Counted 100 10/11/19 06:10 Seg Neutrophils % Not Reportable 10/11/19 06:10 Seg Neuts % (Manual) 79 % (42-78) H 10/11/19 06:10 Lymphocytes % (Manual) 15 % (13-45) 10/11/19 06:10 Atypical Lymphs % 3 % (0) 10/11/19 06:10 Monocytes % (Manual) 0 % (3-13) L 10/11/19 06:10 Eosinophils % (Manual) 0 % (0-6) 10/11/19 06:10 Basophils % (Manual) 2 % (0-2) 10/11/19 06:10 Metamyelocytes % 1 % (0-1) 10/11/19 06:10 Abs Neuts (Manual) 7.0 10^3/uL (1.7-8.2) 10/11/19 06:10 Abs Lymphs (Manual) 1.6 10^3/uL (0.5-4.7) 10/11/19 06:10 Abs Monocytes (Manual) 0.0 10^3/uL (0.1-1.4) L 10/11/19 06:10 Absolute Eos (Manual) 0.0 10^3/uL (0.0-0.6) 10/11/19 06:10 Abs Basophils (Manual) 0.2 10^3/uL (0.0-0.2) 10/11/19 06:10 Toxic Granulation 1+ 10/11/19 06:10 Platelet Comment ADEQUATE 10/11/19 06:10 Poikilocytosis 2+ 10/11/19 06:10 Anisocytosis 2+ 10/11/19 06:10 Tear Drop Cells 1+ 10/11/19 06:10 Ovalocytes 1+ 10/11/19 06:10 Carbonic Acid 1.31 mmol/L (1.05-1.35) 10/04/19 02:37 HCO3/H2CO3 Ratio 22:1 10/04/19 02:37 ABG pH 7.45 (7.35-7.45) 10/04/19 02:37 ABG pCO2 43.5 mmHg (35-45) 10/04/19 02:37 ABG pO2 71.8 mmHg (80-100) L 10/04/19 02:37 ABG HCO3 29.4 mmol/L (20-24) H 10/04/19 02:37 ABG Total CO2 30.7 mmol/L (23-27) H 10/04/19 02:37 ABG O2 Saturation 95.0 % (94-98) 10/04/19 02:37 ABG Base Excess 4.7 mmol/L 10/04/19 02:37 FiO2 40% 10/04/19 02:37 Sodium 134.3 mmol/L (137-145) L 10/11/19 06:10 Potassium 4.0 mmol/L (3.6-5.0) 10/11/19 06:10 Chloride 94 mmol/L (98-107) L 10/11/19 06:10 Carbon Dioxide 37 mmol/L (22-30) H 10/11/19 06:10 Anion Gap 3 (5-19) L 10/11/19 06:10 BUN 16 mg/dL (7-20) 10/11/19 06:10 Creatinine 0.75 mg/dL (0.52-1.25) 10/11/19 06:10 Est GFR ( Amer) > 60 (>60) 10/11/19 06:10 Est GFR (MDRD) Non-Af > 60 (>60) 10/11/19 06:10 Glucose 113 mg/dL (75-110) H 10/11/19 06:10 Lactic Acid 2.2 mmol/L (0.7-2.1) H 10/04/19 02:37 Calcium 8.7 mg/dL (8.4-10.2) 10/11/19 06:10 Magnesium 2.1 mg/dL (1.6-2.3) 10/11/19 06:10 Total Bilirubin 0.3 mg/dL (0.2-1.3) 10/11/19 06:10 Direct Bilirubin 0.2 mg/dL (0.0-0.4) 10/11/19 06:10 Neonat Total Bilirubin Not Reportable 10/11/19 06:10 Neonat Direct Bilirubin Not Reportable 10/11/19 06:10 Neonat Indirect Bili Not Reportable 10/11/19 06:10 AST 21 U/L (17-59) 10/11/19 06:10 ALT 18 U/L (<50) 10/11/19 06:10 Alkaline Phosphatase 61 U/L (38-126) 10/11/19 06:10 Troponin I 0.017 ng/mL 10/04/19 20:54 NT-Pro-B Natriuret Pep 251 pg/mL (<450) 10/04/19 03:05 Total Protein 5.7 g/dL (6.3-8.2) L 10/11/19 06:10 Albumin 3.0 g/dL (3.5-5.0) L 10/11/19 06:10 Urine Color STRAW 10/05/19 14:32 Urine Appearance CLEAR 10/05/19 14:32 Urine pH 6.0 (5.0-9.0) 10/05/19 14:32 Ur Specific Ledger 1.005 10/05/19 14:32 Urine Protein NEGATIVE mg/dL (NEGATIVE) 10/05/19 14:32 Urine Glucose (UA) NEGATIVE mg/dL (NEGATIVE) 10/05/19 14:32 Urine Ketones NEGATIVE mg/dL (NEGATIVE) 10/05/19 14:32 Urine Blood NEGATIVE (NEGATIVE) 10/05/19 14:32 Urine Nitrite (Reflex) NEGATIVE (NEGATIVE) 10/05/19 14:32 Urine Bilirubin NEGATIVE (NEGATIVE) 10/05/19 14:32 Urine Urobilinogen NEGATIVE mg/dL (<2.0) 10/05/19 14:32 Leukocyte Esterase Rfl NEGATIVE (NEGATIVE) 10/05/19 14:32 Urine RBC (Auto) 0 /HPF 10/05/19 14:32 Urine WBC (Reflex) < 1 /HPF 10/05/19 14:32 Urine Mucus (Auto) RARE /LPF 10/05/19 14:32 Urine Ascorbic Acid NEGATIVE (NEGATIVE) 10/05/19 14:32 COVID-19 Source NASOPHARYNGEAL 10/10/19 17:50 COVID-19 (AMADA) NOT DETECTED 10/10/19 17:50 10/04/19 10/04/19 10/04/19 03:05 08:49 14:20 Troponin I 0.018 0.032 0.021 NT-Pro-B Natriuret Pep 251 10/04/19 20:54 Troponin I 0.017 NT-Pro-B Natriuret Pep Impressions: Facial Bones CT 10/08/19 00:00 IMPRESSION: Right maxillary sinusitis PICC Line Insertion 10/08/19 00:00 IMPRESSION: SUCCESSFUL PLACEMENT OF A 5 FR DUAL LUMEN 40 CM PICC IN THE LEFT BASILIC VEIN. Stroke Is this a Stroke Patient?: No Acute Heart Failure - Is this a Heart Failure Patient?: No
[2019-10-13 17:16] VITALS: BP 115/50
== END 2019-10-13 17:17 | DRG 981 ==
LOC: ER 02:32 → EH 04:43 → 4N 06:24
PROVIDERS: ADMIT Emergency Medicine; ATTEND Physician Assistant
PROC: 02HV33Z Insertion of Infusion Device into Superior Vena Cava, Percutaneous Approach (ICD-10-PCS; 2019-10-04)
PROC: B518ZZA Fluoroscopy of Superior Vena Cava, Guidance (ICD-10-PCS; 2019-10-04)
PROC: B548ZZA Ultrasonography of Superior Vena Cava, Guidance (ICD-10-PCS; 2019-10-04)
PROC: 5A09457 Assistance with Respiratory Ventilation, 24-96 Consecutive Hours, Continuous Positive Airway Pressure (ICD-10-PCS; 2019-10-04)
PROC: 0NBR0ZZ Excision of Maxilla, Open Approach (ICD-10-PCS; principal; 2019-10-09)
PROC: 0CDWXZ1 Extraction of Upper Tooth, Multiple, External Approach (ICD-10-PCS; 2019-10-09)
PROC: 0CDXXZ0 Extraction of Lower Tooth, Single, External Approach (ICD-10-PCS; 2019-10-09)
DX: J44.1 Chronic obstructive pulmonary disease with (acute) exacerbation (principal); J96.21 Acute and chronic respiratory failure with hypoxia; R78.81 Bacteremia; I38 Endocarditis, valve unspecified; I25.10 Atherosclerotic heart disease of native coronary artery without angina pectoris; K02.9 Dental caries, unspecified; E78.5 Hyperlipidemia, unspecified; I10 Essential (primary) hypertension; I73.9 Peripheral vascular disease, unspecified; H40.9 Unspecified glaucoma; B95.4 Other streptococcus as the cause of diseases classified elsewhere; E03.9 Hypothyroidism, unspecified; F10.21 Alcohol dependence, in remission; M10.9 Gout, unspecified; F17.200 Nicotine dependence, unspecified, uncomplicated; F03.90 Unspecified dementia, unspecified severity, without behavioral disturbance, psychotic disturbance, mood disturbance, and anxiety; Z95.5 Presence of coronary angioplasty implant and graft; Z82.49 Family history of ischemic heart disease and other diseases of the circulatory system; Z79.82 Long term (current) use of aspirin; Z79.899 Other long term (current) drug therapy; Z03.818 Encounter for observation for suspected exposure to other biological agents ruled out
CPT/HCPCS: 36415; 36573; 70486; 71045; 80048; 80053; 81001; 82803; 83605; 83735; 83880; 84484; 85025; 85027; 87040; 87077; 87150; 87186; 87635; 93005; 93010; 93306; 94660; 99285; J0696; J1642; J2060; J2920; J3490; J7620